=== PATIENT | female | born 1990 | race Caucasian/White ===

== ENCOUNTER → 2016-11-09 | Outpatient (CLI) | payer OTHER ==
--- NOTE | 2016-11-09 13:33 | Discharge Instructions ---
Discharge Instructions Procedure Procedure Date: Nov 09, 2016. Reason for visit: Thyroid Nodule,Pt Had Us On 10/26/16. Discharge Discharge Date: Nov 09, 2016. Discharge Diagnosis: same Instructions Activity Recommendations: No limitations Return to School/Work: no limitations Recommended Home Diet: Resume Previous Diet Provider Instructions: ACTIVITY RECOMMENDATIONS: * Rest today. * Resume regular activity in one day. MEDICATIONS: * May take Tylenol or Ibuprofen as needed for pain. DIET: * Resume previous diet. SPECIAL CARE INSTRUCTIONS: Call your doctor if: * Temperature above 101 degrees F. * Pain not relieved by pain medicine ordered. * Increased drainage or redness from incision. * Notify your doctor with any questions or concerns. Call your doctor or go to the nearest Emergency Department if you experience: * Increased chest pain or shortness of breath. FOLLOW UP VISIT: Follow-up with Referring Physician as scheduled. Allergies Uncoded Allergies: WILMAR (Allergy, Unknown, 12/06/02) Alec Ferreira Recommendations: Call your doctor if: * Temperature above 101 degrees * Pain not relieved by pain medicine ordered * There is increased drainage or redness from any incision * You have any unanswered questions or concerns. Your Doctors Instructions noted above were prepared by provider Jass Marcos. Patient Signature Section: Patient Instructions Signature Page Hortencia Garza Patient (or Guardian) Signature/Date: I have read and understand the instructions given to me by my caregivers. Caregiver/RN/Doctor Signature/Date: The above-named patient and/or guardian has received patient instructions on this date. + Original Patient Signature Page (only) stays with chart. Please make copy for patient.
--- NOTE | 2016-11-09 14:06 | DIAGNOSTIC IMAGING REPORT ---
ULTRASOUND-GUIDED FINE-NEEDLE ASPIRATION OF A RIGHT THYROID NODULE HISTORY: Right thyroid nodule. COMPARISON: None. PROCEDURE: Written informed consent was obtained. The neck was prepped and draped in the usual sterile fashion. 1% lidocaine was used for local anesthesia. A total of 2 passes using a 25-gauge needle were made through the right thyroid nodule under ultrasound guidance. Specimens were given to the on-site pathologist who determined adequate tissue for diagnosis. The patient tolerated the procedure well. There were no immediate complications. IMPRESSION: Successful ultrasound-guided fine-needle aspiration of a right thyroid nodule. Electronically signed by: Jass Marcos M.D. 11/09/2016 2:04 PM Dictated Date/Time: 11/09/2016 2:03 PM
== END | disposition home or self-care (01) ==
LOC: C.ULTR 12:38
PROVIDERS: ATTEND Family Medicine
DX: E04.1 Nontoxic single thyroid nodule (principal)

== ENCOUNTER 2021-11-16 20:38 | Observation (INO) ==
[2021-11-16 21:52] LABS: Hematocrit (blood only) 38.2 % (37-47); Hemoglobin 13.3 g/dL (12.0-16.0); Mean Corpuscular Hemoglobin 32.6 pg (25-34); Mean Corpuscular Hgb Conc 34.8 g/dL (32-36); Mean Corpuscular Volume 93.6 fL (80-100); Mean Platelet Volume 13.5 fL (7.4-10.4); Platelet Count 245 K/uL (130-400); RDW Coefficient of Variation 13.1 % (11.5-14.5); Red Blood Count 4.08 M/uL (4.2-5.4); White Blood Count 12.66 K/uL (4.8-10.8)
[2021-11-16 22:15] LABS: Appearance Urine Cloudy (Clear); Bacteria Urine Automated 2+ (Negative); Bilirubin Urine Negative (Negative); Blood Urine Negative (Negative); Color Urine Yellow; Epithelial Cell Urine Auto >30 /lpf (0-5); Glucose Urine UA Negative (Negative); Ketones Urine Trace (Negative); Leukocyte Esterase Urine 3+ (Negative); Nitrite Urine Negative (Negative); Protein Urine Negative (Negative); RBC Urine Automated 0-4 /hpf (0-4); Specific Gravity Urine 1.013 (1.000-1.030); Urobilinogen Urine Negative (Negative); WBC Urine Automated >30 /hpf (0-5); pH Urine 5.5 (4.5-7.5)
[2021-11-16 22:18] LABS: BUN Creatinine Ratio 9.9 (10-20); Creatinine Clr Calc Pharmacy 144.9 ml/min; Est GFR (African American) 131.5 ml/min; Est GFR (Non-African American) 113.5 ml/min; Potassium 3.5 mmol/L (3.5-5.1)
[2021-11-16 22:27] LABS: Cast Urine Automated 0 /lpf (0-5)
[2021-11-16] MEDS ORDERED: SODIUM CHLORIDE 0.9% 1000ML 1,000 ML IV SCH (22:30)
[2021-11-16] MEDS ORDERED: cefTRIAXone SODIUM 2,000 MG/70 ML BAG IV STA (22:30)
[2021-11-16] MEDS ORDERED: ACETAMINOPHEN 500 MG TAB PO STA (23:03)
--- NOTE | 2021-11-16 23:32 | Emergency Department Note ---
History of Present Illness General Chief complaint: Flank Pain Stated complaint: PAIN IN LEFT SIDE,36 WKS PREG,L&D WANTS SEEN IN ED Time Seen by Provider: 11/16/21 22:30 Source: patient Mode of arrival: ambulatory Limitations: no limitations History of Present Illness Provider complaint: left flank pain, Onset (ago): day(s) 2 Maximum Pain Intensity: 4 Associated symptoms: + nausea/vomiting; no fever/chills or no shortness of breath Treatments prior to arrival: other This is a 31-year-old female, G1, P0 at 36 weeks gestation who presents due to concern for left-sided flank pain. Patient states pain began over the weekend, has been intermittent in nature, and localized to the left flank, left mid back. Patient denies fevers or chills, states she has had intermittent nausea, denies change in bowel movements or change in urine. No prior history of recurrent UTI or kidney stones. Patient did take Tylenol for pain today. Patient states she did contact her PREBOARDER who instructed her that if the pain persisted she should come to the emergency department for additional evaluation. Patient states she is still feeling the baby move. No complications during the period thus far, patient does have routine care. Patient denies any abnormal vaginal discharge or bleeding. Pt seen during a time of high acuity and national emergency pandemic while wearing PPE. Home Medications Medication Instructions Recorded Confirmed Type prenat.vits,iker,iea-xibi-zzgwo PO 04/29/21 11/03/21 History Allergies Allergy/AdvReac Type Severity Reaction Status Date / Time cefaclor [From Hazel] Allergy Unknown Verified 11/03/21 09:44 CECLOR Allergy Unknown Uncoded 11/03/21 09:44 Past Med/Surg History Medical History Chlamydia History of chicken pox Surgical History S/P LASIK surgery S/P tonsillectomy S/P wisdom tooth extraction Family History Grandfather (Paternal) Myocardial infarction Mother Alcohol abuse Denies family history of Ovarian cancer Prostate cancer Breast cancer Colorectal cancer Social History Smoking Status: Never smoker Second Hand Exposure: No; Hx Alcohol Use: Yes (not while ) Alcohol type: beer, wine and hard liquor Hx Substance Use: No Preferred Language: Armenian Communication Ability: Effective Visual Impairment: No Limitations Hearing Ability: Normal 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 Beliefs That Will Affect Care: None marital status: marital status details: Shraddha Crespo (32) [phone]/ [phone] Current Living Situation: Spouse Current Living Situation Comment: lives with spouse and dog 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[employer] Feels Safe at Home: Yes Physical Activity Frequency: 3-4 Times per Week Assistive Devices: None Review of Systems A total of 10 systems reviewed and were otherwise negative All systems reviewed & are unremarkable except as noted in HPI & below Physical Exam Vital Signs Vital Signs - 24 hr 11/16/21 20:41 11/16/21 22:00 11/17/21 00:00 Temperature 36.8 C Temperature Source Temporal Artery Scan Pulse Rate 81 Pulse Rate [Apical] 74 73 Respiratory Rate 18 20 20 Respiratory Depth Normal Blood Pressure 164/99 H Blood Pressure [Right Arm] 149/100 H 127/87 Blood Pressure Mean 120 Blood Pressure Mean [Right Arm] 116 100 Pulse Oximetry 96 96 97 Oxygen Delivery Method Room Air Room Air Room Air Sepsis Recent Fever Within 48 Hours No Sepsis New/Unexplained Change in Mental Status N/A Sepsis Action Taken by Nursing No Action Required 11/17/21 01:00 Temperature Temperature Source Pulse Rate Pulse Rate [Apical] 79 Respiratory Rate 22 Respiratory Depth Blood Pressure Blood Pressure [Right Arm] Blood Pressure Mean Blood Pressure Mean [Right Arm] Pulse Oximetry 97 Oxygen Delivery Method Room Air Sepsis Recent Fever Within 48 Hours Sepsis New/Unexplained Change in Mental Status Sepsis Action Taken by Nursing GENERAL: alert, well appearing, well nourished, no distress, non-toxic EYE EXAM: normal conjunctiva, PERRL and EOM's grossly intact OROPHARYNX: no exudate, no erythema, lips, buccal mucosa, and tongue normal and mucous membranes are moist NECK: supple, no nuchal rigidity, no adenopathy, non-tender LUNGS: Clear to auscultation. Normal chest wall mechanics, no w/r/r HEART: no murmurs, S1 normal and S2 normal ABDOMEN: abdomen soft, non-tender, normo-active bowel sounds, no masses, no rebound or guarding. Noticeable gravid uterus, palpation of the fundus between the xiphoid process and the umbilicus consistent with dates. BACK: Back is symmetrical on inspection and there is no deformity, no midline tenderness, no CVA tenderness. Pain with palpation over the left flank in the lower thoracic region. SKIN: no rashes and no bruising, no petechiae UPPER EXTREMITIES: upper extremities are grossly normal. FROM, nml pulses b/l. LOWER EXTREMITIES: No pitting edema. FROM, nml pulses b/l. NEURO EXAM: Normal sensorium, cranial nerves II-XII grossly intact, normal speech, no gross weakness of arms, no gross weakness of legs. Gross sensation intact. Course Course 0005: Pt updated on results. Still having pain, worse after US. 0015: Discussed with Dr. Gilliland. 0035: Discussed with Dr. Gilliland again. She will admit the patient. Discussed treatment in the ER. Administered Medications Diphenhydramine HCl (Diphenhydramine Capsule 25 Mg Cap) 25 mg PO HS PRN PRN Reason: Nausea And Vomiting Stop: 12/17/21 02:06 Last Admin: 11/17/21 02:31 Dose: 25 mg Documented by: [id number] Lactated Ringer's (Lr) 1,000 mls @ 125 mls/hr IV .Q8H PRN; Protocol PRN Reason: L&D Protocol Stop: 12/17/21 02:06 Last Admin: 11/17/21 02:43 Dose: 125 mls/hr Documented by: [id number] Discontinued Medications Acetaminophen (Acetaminophen 500 Mg Tab) 1,000 mg PO NOW STA Stop: 11/16/21 23:04 Last Admin: 11/16/21 23:06 Dose: 1,000 mg Documented by: [id number] Calcium Carbonate (Calcium Carbonate 500 Mg Chewable Tab) 500 mg PO NOW STA Stop: 11/17/21 00:40 Last Admin: 11/17/21 00:47 Dose: 500 mg Documented by: [id number] Sodium Chloride (Nss 1000ml) 1,000 mls @ 125 mls/hr IV .Q8H EMILIO Stop: 12/16/21 22:29 Last Admin: 11/16/21 22:41 Dose: 125 mls/hr Documented by: [id number] Ceftriaxone Sodium (Rocephin) 2,000 mg in 70 mls @ 140 mls/hr IV NOW STA Stop: 11/16/21 22:59 Last Infusion: 11/16/21 23:24 Dose: 0 mls/hr Documented by: [id number] Admin: 11/16/21 22:41 Dose: 140 mls/hr Documented by: [id number] Medical Decision Making Differential Diagnosis Differential diagnosis: Etiologies such as shingles, pyelonephritis/UTI, renal colic, appendicitis, diverticulitis, mesenteric ischemia, torsion, aortic pathology, infections, inflammatory bowel disease, bowel obstruction, PUD, biliary pathology, as well as others were entertained. Medical Records Attestation: I reviewed the patient's medical records. Home Medications Current Medication List: was personally reviewed by me Laboratory Data Attestation: I reviewed the patient's lab results. Result diagrams: 11/16/21 21:04 11/16/21 21:04 Lab Results 11/16/21 11/16/21 11/16/21 Range/Units 21:04 21:04 22:00 WBC 12.66 H (4.8-10.8) K/uL RBC 4.08 L (4.2-5.4) M/uL Hgb 13.3 (12.0-16.0) g/dL Hct 38.2 (37-47) % MCV 93.6 (80-100) fL MCH 32.6 (25-34) pg MCHC 34.8 (32-36) g/dL RDW Std Deviation 45.0 (36.4-46.3) fL RDW Coeff of Ezekiel 13.1 (11.5-14.5) % Plt Count 245 (130-400) K/uL MPV 13.5 H (7.4-10.4) fL Sodium 136 (136-145) mmol/L Potassium 3.5 (3.5-5.1) mmol/L Chloride 103 (98-107) mmol/L Carbon Dioxide 24 (21-32) mmol/L Anion Gap 9 (3-11) BUN 7 (6-23) mg/dl Creatinine 0.71 (0.6-1.2) mg/dl Est Cr Clr Drug Dosing 144.9 ml/min Est GFR ( Amer) 131.5 ml/min Est GFR (Non-Af Amer) 113.5 ml/min BUN/Creatinine Ratio 9.9 L (10-20) Glucose 75 (70-99(Fasting)) mg/dl Calcium 9.0 (8.5-10.1) mg/dl Urine Color Yellow Urine Appearance Cloudy A (Clear) Urine pH 5.5 (4.5-7.5) Ur Specific [place] 1.013 (1.000-1.030) Urine Protein Negative (Negative) Urine Glucose (UA) Negative (Negative) Urine Ketones Trace H (Negative) Urine Blood Negative (Negative) Urine Nitrite Negative (Negative) Urine Bilirubin Negative (Negative) Urine Urobilinogen Negative (Negative) Ur Leukocyte Esterase 3+ H (Negative) Urine WBC (Auto) >30 H (0-5) /hpf Urine RBC (Auto) 0-4 (0-4) /hpf U Hyaline Cast (Auto) 0 (0-5) /lpf U Epithel Cells (Auto) >30 H (0-5) /lpf Urine Bacteria (Auto) 2+ H (Negative) SARS-CoV-2, RNA, NAAT (NEGATIVE) 11/17/21 Range/Units 00:45 WBC (4.8-10.8) K/uL RBC (4.2-5.4) M/uL Hgb (12.0-16.0) g/dL Hct (37-47) % MCV (80-100) fL MCH (25-34) pg MCHC (32-36) g/dL RDW Std Deviation (36.4-46.3) fL RDW Coeff of Ezekiel (11.5-14.5) % Plt Count (130-400) K/uL MPV (7.4-10.4) fL Sodium (136-145) mmol/L Potassium (3.5-5.1) mmol/L Chloride (98-107) mmol/L Carbon Dioxide (21-32) mmol/L Anion Gap (3-11) BUN (6-23) mg/dl Creatinine (0.6-1.2) mg/dl Est Cr Clr Drug Dosing ml/min Est GFR ( Amer) ml/min Est GFR (Non-Af Amer) ml/min BUN/Creatinine Ratio (10-20) Glucose (70-99(Fasting)) mg/dl Calcium (8.5-10.1) mg/dl Urine Color Urine Appearance (Clear) Urine pH (4.5-7.5) Ur Specific [place] (1.000-1.030) Urine Protein (Negative) Urine Glucose (UA) (Negative) Urine Ketones (Negative) Urine Blood (Negative) Urine Nitrite (Negative) Urine Bilirubin (Negative) Urine Urobilinogen (Negative) Ur Leukocyte Esterase (Negative) Urine WBC (Auto) (0-5) /hpf Urine RBC (Auto) (0-4) /hpf U Hyaline Cast (Auto) (0-5) /lpf U Epithel Cells (Auto) (0-5) /lpf Urine Bacteria (Auto) (Negative) SARS-CoV-2, RNA, NAAT NEGATIVE (NEGATIVE) Imaging Data Radiologist's Impression: Ultrasound renal: Moderate hydronephrosis of the right kidney. No sonographically evident nephrolithiasis in either kidney. Urinary bladder not visualized. Gravid uterus. heart rate 119 bpm. Radiologist: Juan Haile MD MDM Narrative This is a well-appearing 31-year-old female at 36 weeks gestation who presents due to abrupt onset left flank pain and recommendation of PREBOARDER. Renal ultrasound reassuring, UA suggestive of UTI, labs otherwise unremarkable with no HILARIO. Mild leukocytosis noted however this may be simply due from the and not from evolving infection. Patient was afebrile and hemodynamically stable. No evidence of bacteremia/sepsis. No evidence of nephrolithiasis on CT which I feel makes ureterolithiasis less likely. I feel right-sided hydronephrosis on the contralateral side of the pain more likely physiologic and related to the . Patient was started on IV Rocephin in addition to IV fluids and IV acetaminophen. I did discuss the case with PREBOARDER on-call due to concern for patient's current third trimester status and likely clinical pyelonephritis with persistent pain. They will observe and evaluate the patient as an inpatient as a precaution. Patient made aware of all results, and verbalized understanding. She was in agreement with the plan. heart tones reassuring. An order was placed for continuous cardiac monitoring. The monitor shows a rate of _66_ with _normal sinus__ rhythm. Impression & Plan Acute left flank pain, Pyelonephritis, Discharge Plan Visit Data Chief Complaint: Flank Pain Stated Complaint: PAIN IN LEFT SIDE,36 WKS PREG,L&D WANTS SEEN IN ED ED Provider: Azeb Alcantara Discharge Problem: Acute left flank pain, Pyelonephritis, Patient Disposition: Admitted As Inpatient Discharge Instructions Interventions: ED Discharge Assessment Last Done: 11/17/21 01:28 Discharge Problem: Qualifiers: Weeks of gestation: 36 weeks Qualified Code(s): Z3A.36 - 36 weeks gestation of
[2021-11-17] MEDS ORDERED: CALCIUM CARBONATE 500 MG CHEWABLE TAB PO STA (00:39)
[2021-11-17] MEDS ORDERED: ACETAMINOPHEN 325 MG TAB PO SCH (01:15)
--- NOTE | 2021-11-17 01:17 | History & Physical Report ---
Date of Service November 17, 2021 Assessment & Plan (1) Pyelonephritis affecting : Plan: 31 y/o G1 at 36 wga presents w/ suspected pyelo VSS FHT obtained in ER Pyelo - pt has mod to severe L flank pain, UA w/ pyuria and bacteriuria, and n/v to be suspicious for pyelo. UA not suggestive of stone and not seen on renal US. Given , rec observation for IV antibiotics. Started on IV ceftriaxone so will continue q24h dosing until beginning improvement and culture indicates sensitivities. Pt received tylenol, would prefer to use anything stronger at this point so can try to use heat packs for relief as well for now. - Will get NST upon arrival to L&D, if reactive would continue qshift as long as remains stable History of Present Illness Chief Complaint: Suspected pyelo Primary Care Provider: iL Sullivan DO 31 y/o G1 at 36 wga presented to ER earlier this evening with worsening flank pain. Reports that she called in with L flank pain last night when it began, was recommended to take tylenol and monitor as it was suspected kidney stone with instruction to present to ER if not beginning to improve or worsening. Throughout the day, pain has continued to worsen despite tylenol with associated nausea, vomiting. She denies fever or dysuria. +FM and irreg ctx, denies LOF or VB. In the ER, UA was obtained showing +LE, pyuria, bacteriuria. 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 cycles 11/2020 ascus/hpv- pap Remote hx chlamydia Allergies Allergy/AdvReac Type Severity Reaction Status Date / Time cefaclor [From Ceclor] Allergy Unknown Verified 11/03/21 09:44 CECLOR Allergy Unknown Uncoded 11/03/21 09:44 Home Medications Medication Instructions Recorded Confirmed Type prenat.vits,iker,ukm-tldv-ifddt PO 04/29/21 11/03/21 History Patient History Medical History Chlamydia History of chicken pox Surgical History S/P LASIK surgery S/P tonsillectomy S/P wisdom tooth extraction Family History Grandfather (Paternal) Myocardial infarction Mother Alcohol abuse Denies family history of Ovarian cancer Prostate cancer Breast cancer Colorectal cancer Social History Smoking Status: Never smoker Second Hand Exposure: No; Hx Alcohol Use: Yes (casual) Hx Substance Use: No Preferred Language: Kuwaiti Visual Impairment: No Limitations Hearing Ability: Normal marital status: marital status details: Shraddha Crespo (32) [phone]/ [phone] Current Living Situation: Spouse Current Living Situation Comment: lives with spouse and dog 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[employer] Feels Safe at Home: Yes Physical Activity Frequency: 3-4 Times per Week Review of Systems Neg except as noted in HPI Physical Exam Constitutional: WD/WN, vitals as above Respiratory: normal respiratory effort; no respiratory distress and no labored breathing Gastrointestinal (Abdomen): Percussion/Palpation: abdomen soft; abdomen nontender and no guarding Musculoskeletal: +L sided flank pain Genitourinary: FHT obtained by ER Results & Data ([facility]) Vital Signs (Past 12 Hours) Vital Signs Temp Pulse Pulse Resp BP BP Pulse Ox 11/17/21 01:00 79 22 97 11/17/21 00:00 73 20 127/87 97 11/16/21 22:00 74 20 149/100 H 96 11/16/21 20:41 98.2 F 81 18 164/99 H 96 Laboratory Results 11/17/21 11/16/21 11/16/21 Range/Units 00:45 22:00 21:04 WBC (4.8-10.8) K/uL RBC (4.2-5.4) M/uL Hgb (12.0-16.0) g/dL Hct (37-47) % MCV (80-100) fL MCH (25-34) pg MCHC (32-36) g/dL RDW Std Deviation (36.4-46.3) fL RDW Coeff of Ezekiel (11.5-14.5) % Plt Count (130-400) K/uL MPV (7.4-10.4) fL Sodium 136 (136-145) mmol/L Potassium 3.5 (3.5-5.1) mmol/L Chloride 103 (98-107) mmol/L Carbon Dioxide 24 (21-32) mmol/L Anion Gap 9 (3-11) BUN 7 (6-23) mg/dl Creatinine 0.71 (0.6-1.2) mg/dl Est Cr Clr Drug Dosing 144.9 ml/min Est GFR ( Amer) 131.5 ml/min Est GFR (Non-Af Amer) 113.5 ml/min BUN/Creatinine Ratio 9.9 L (10-20) Glucose 75 (70-99(Fasting)) mg/dl Calcium 9.0 (8.5-10.1) mg/dl Urine Color Yellow Urine Appearance Cloudy A (Clear) Urine pH 5.5 (4.5-7.5) Ur Specific [place] 1.013 (1.000-1.030) Urine Protein Negative (Negative) Urine Glucose (UA) Negative (Negative) Urine Ketones Trace H (Negative) Urine Blood Negative (Negative) Urine Nitrite Negative (Negative) Urine Bilirubin Negative (Negative) Urine Urobilinogen Negative (Negative) Ur Leukocyte Esterase 3+ H (Negative) Urine WBC (Auto) >30 H (0-5) /hpf Urine RBC (Auto) 0-4 (0-4) /hpf U Hyaline Cast (Auto) 0 (0-5) /lpf U Epithel Cells (Auto) >30 H (0-5) /lpf Urine Bacteria (Auto) 2+ H (Negative) SARS-CoV-2, RNA, NAAT NEGATIVE (NEGATIVE) 11/16/21 Range/Units 21:04 WBC 12.66 H (4.8-10.8) K/uL RBC 4.08 L (4.2-5.4) M/uL Hgb 13.3 (12.0-16.0) g/dL Hct 38.2 (37-47) % MCV 93.6 (80-100) fL MCH 32.6 (25-34) pg MCHC 34.8 (32-36) g/dL RDW Std Deviation 45.0 (36.4-46.3) fL RDW Coeff of Ezekiel 13.1 (11.5-14.5) % Plt Count 245 (130-400) K/uL MPV 13.5 H (7.4-10.4) fL Sodium (136-145) mmol/L Potassium (3.5-5.1) mmol/L Chloride (98-107) mmol/L Carbon Dioxide (21-32) mmol/L Anion Gap (3-11) BUN (6-23) mg/dl Creatinine (0.6-1.2) mg/dl Est Cr Clr Drug Dosing ml/min Est GFR ( Amer) ml/min Est GFR (Non-Af Amer) ml/min BUN/Creatinine Ratio (10-20) Glucose (70-99(Fasting)) mg/dl Calcium (8.5-10.1) mg/dl Urine Color Urine Appearance (Clear) Urine pH (4.5-7.5) Ur Specific [place] (1.000-1.030) Urine Protein (Negative) Urine Glucose (UA) (Negative) Urine Ketones (Negative) Urine Blood (Negative) Urine Nitrite (Negative) Urine Bilirubin (Negative) Urine Urobilinogen (Negative) Ur Leukocyte Esterase (Negative) Urine WBC (Auto) (0-5) /hpf Urine RBC (Auto) (0-4) /hpf U Hyaline Cast (Auto) (0-5) /lpf U Epithel Cells (Auto) (0-5) /lpf Urine Bacteria (Auto) (Negative) SARS-CoV-2, RNA, NAAT (NEGATIVE) Coding Level of Care Code 28076 Office/OBS Consult Lvl 3 Diagnoses Pyelonephritis affecting O23.00
[2021-11-17] MEDS ORDERED: diphenhydrAMINE Capsule 25 MG CAP PO PRN ×2 (02:07→20:43)
[2021-11-17] MEDS: LACTATED RINGER'S 1,000 ML IV PRN ×3 (02:43→16:40)
[2021-11-17] MEDS: ACETAMINOPHEN 500 MG TAB PO SCH ×2 (05:53→13:48)
[2021-11-17] MEDS: MoRPHine SULFATE 2 MG/ML CARP IV PRN ×3 (06:21→16:40)
[2021-11-17 07:07] LABS: Basophils # (auto) 0.03 K/uL (0-0.2); Basophils % (auto) 0.3 %; Eosinophils # (auto) 0.07 K/uL (0-0.5); Eosinophils % (auto) 0.7 %; Hemoglobin 11.3 g/dL (12.0-16.0); Immature Granulocytes # (auto) 0.05 K/uL (0.00-0.02); Immature Granulocytes % (auto) 0.5 %; Lymphocytes # (auto) 2.18 K/uL (1.2-3.4); Lymphocytes % (auto) 21.1 %; Mean Corpuscular Hgb Conc 34.2 g/dL (32-36); Mean Corpuscular Volume 93.5 fL (80-100); Mean Platelet Volume 12.8 fL (7.4-10.4); Monocytes # (auto) 1.23 K/uL (0.11-0.59); Monocytes % (auto) 11.9 %; Neutrophils # (auto) 6.76 K/uL (1.4-6.5); Neutrophils % (auto) 65.5 %; Platelet Count 184 K/uL (130-400); RDW Coefficient of Variation 13.3 % (11.5-14.5); RDW Standard Deviation 45.3 fL (36.4-46.3); Red Blood Count 3.53 M/uL (4.2-5.4); White Blood Count 10.32 K/uL (4.8-10.8)
--- NOTE | 2021-11-17 07:20 | Obstetrical Progress Note ---
Date of Service November 17, 2021 Assessment & Plan (1) Pyelonephritis affecting : Plan: 31 y/o G1 at 36 wga presents w/ suspected pyelo VSS NST reactive on L&D, due for AM shift NST Pyelo - continue ceftriaxone 1g q24h until beginning to improve, awaiting c ultures - NST reactive on arrival, will continue qshift Admission and Anticipated Discharge Date Admission Date: November 17, 2021 Subjective Was able to rest reasonably overnight, when she got up to move she got worsened flank pain. Denies fevers, chills, n/v, PERLA, CP, SOB. +FM; denies regular ctx, LOF, VB Physical Exam Constitutional: WD/WN, vitals as above Respiratory: normal respiratory effort; no respiratory distress and no labored breathing Gastrointestinal (Abdomen): Percussion/Palpation: abdomen soft; abdomen nontender and no guarding Musculoskeletal: Moderate L flank pain Genitourinary: NST reactive on arrival to L&D Results [facility] Data ([facility]) Vital Signs (Past 12 Hours) Vital Signs Temp Pulse Pulse Resp BP BP Pulse Ox 11/17/21 02:00 98.1 F 63 20 97 11/17/21 01:00 79 22 97 11/17/21 00:00 73 20 127/87 97 11/16/21 22:00 74 20 149/100 H 96 11/16/21 20:41 98.2 F 81 18 164/99 H 96 PG Care Time/CCT Total # of Minutes Spent Total Time Spent with Patient: Total time spent is greater than 50% in coordination of care (as documented) at patient's floor/unit and/or counseling patient: Coding Level of Care Code None Diagnoses Pyelonephritis affecting O23.00
--- NOTE | 2021-11-17 07:41 | Ultrasound Report ---
RENAL ULTRASOUND CLINICAL HISTORY: flank pain, UTI. 36 weeks . COMPARISON STUDY: None. TECHNIQUE: Sonography of the kidneys and the urinary bladder was performed. FINDINGS: Right kidney measures 13.4 x 6.2 x 4.9 cm and the left measures 11.9 x 6.7 x 5.7 cm. There is moderate right hydronephrosis. There is mild to moderate left hydronephrosis. No ureteral calculi are identified although these can be occult by sonography. Please note that a dedicated anatomi iker survey was not performed. heart rate is 119 bpm. The bladder was not visualized on this exa m. IMPRESSION: Moderate right hydronephrosis. Mild to moderate left hydronephrosis. Etiology not clear on this exam however this could be due to mass effect upon the distal ureters by the gravid uterus. ACT 112: Negative or not required by law. Electronically signed by: Mark Perez M.D. 11/17/2021 7:40 AM
[2021-11-17] MEDS ORDERED: oxyCODONE/ACETAMINOPHEN 5mg/325mg TAB PO PRN (20:39)
[2021-11-17] MEDS ORDERED: MoRPHine SULFATE 2 MG/ML CARP IV PRN (20:42)
[2021-11-17] MEDS ORDERED: ONDANSETRON INJ 2 MG/ML 2 ML VIAL IV PRN (20:45)
--- NOTE | 2021-11-17 20:45 | Obstetrical Progress Note ---
Date of Service November 17, 2021 Assessment & Plan Admission and Anticipated Discharge Date Admission Date: November 17, 2021 Subjective Recheck of patient - has had some vomiting, still feeling pain in L flank. Asking for more pain medication. Remains afebrile. I increased frequency and dose of morphine, added zofran for nausea, and offered benadryl for help sleeping. Results & Data ([facility]) Vital Signs (Past 12 Hours) Vital Signs Temp Pulse Resp BP Pulse Ox 11/17/21 16:35 36.6 C 59 L 18 142/77 H 96 11/17/21 12:20 36.8 C 73 16 133/84 95 PG Care Time/CCT Total # of Minutes Spent Total Time Spent with Patient: Total time spent is greater than 50% in coordination of care (as documented) at patient's floor/unit and/or counseling patient: Coding Level of Care Code None
[2021-11-17] MEDS ORDERED: cefTRIAXone SODIUM 2,000 MG in DEXTROSE 5% 50 ML IV SCH (22:00)
[2021-11-18] MEDS: LACTATED RINGER'S 1,000 ML IV PRN (01:10)
[2021-11-18] MEDS: ACETAMINOPHEN 500 MG TAB PO SCH ×3 (07:29→13:43)
--- NOTE | 2021-11-18 09:10 | Obstetrical Progress Note ---
Date of Service November 18, 2021 Assessment & Plan (1) Pyelonephritis affecting : Plan: Feeling much better this am. no n/v, pain improved, slept well. Plan to d/c iv abio and change to oral. Of interest her culture did not grow out anything. Plan to d/c home if she does well today with completion of an oral antibiotic course, plan just tylenol for pain management. FEtus reactive this am. Admission and Anticipated Discharge Date Admission Date: November 17, 2021 Subjective Patient got a really good nights sleep and feels much better. When I enter the room she is eating breakfast. She notes she is hungry and has no n/v. She notes she feels a bit crampy but no vb. Notes good FM. Notes her flank pain is much improved and is now a 2/10. She notes she thinks the morphine made her feel awful and declines any more of this. Had a reactive nst this am with some mics. She has had two doses of iv antibiotics. Physical Exam Constitutional: WD/WN, vitals as above Cardiovascular: Extremities: no calf tenderness and no edema Gastrointestinal (Abdomen): soft, gravid, nt Psychiatric: A+Ox3, euthymic affect Results & Data ([facility]) Vital Signs (Past 12 Hours) Vital Signs Temp Pulse Resp BP Pulse Ox 11/18/21 04:30 36.5 C 71 18 122/68 94 11/17/21 22:50 36.7 C 64 18 138/81 95 11/17/21 21:13 36.7 C 75 18 108/69 97 PG Care Time/CCT Total # of Minutes Spent Total Time Spent with Patient: Total time spent is greater than 50% in coordination of care (as documented) at patient's floor/unit and/or counseling patient: Coding Level of Care Code 70263 Subseq Hosp Care Lvl 1 Diagnoses Pyelonephritis affecting O23.00
[2021-11-18] MEDS ORDERED: cephALEXin 500 MG CAP PO SCH (13:00)
[2021-11-18 15:44] VITALS: BP 138/82; TEMP 98.1; O2SAT 97
[2021-11-18] MEDS ORDERED: CALCIUM CARBONATE 500 MG CHEWABLE TAB PO PRN (16:10)
[2021-11-18 16:59] VITALS: PULSE 63
[2021-11-18] MEDS ORDERED: NITROFURANTOIN MONOHYDRATE 100 MG CAP PO SCH (21:00)
--- NOTE | 2021-11-20 08:48 | Discharge Summary (DS) ---
DATE OF ADMISSION: 11/17/2021. DATE OF DISCHARGE: 11/18/2021. ADMIT DIAGNOSES: 1. at 36 weeks. 2. Suspected pyelo. POSTOPERATIVE DIAGNOSES: 1. at 36 weeks. 2. Suspected pyelo. PROCEDURE: IV antibiotics. HISTORY: The patient is a 31-year-old G1 at 36 weeks gestational age, who presented to the ER on with her worsening flank pain. She reports that she called in with left flank pain the night before when it began and was recommended she take Tylenol and monitor as it was a suspected kidney s tone with instruction to present to the ER if not beginning to improve or worsening. Throughout the d ay, the pain had worsened despite that and had associated nausea and vomiting. She denies fever or d ysuria. She notes good movement and irregular contractions. Denies leakage of fluid or vagina l bleeding. In the ER, UA was obtained showing positive leukocyte esterase, pyuria, bacteriuria. Ja al ultrasound was performed showing moderate right hydro, slight left hydro, but no obvious stone in either kidney. For the rest of the patient's detailed history and physical, please see her dictated history and physical. ASSESSMENT: This is a at 36 weeks, who is being admitted from the Emergency Room with susp ected pyelo. She has [id number] left flank pain and a UA with pyuria and bacteriuria, and na usea and vomiting. UA was not suggestive stone and this was not seen on renal ultrasound. HOSPITAL COURSE: Given that she is 36 weeks , it was recommended she be observed for IV hydr ation and antibiotics. She was started on IV ceftriaxone for 24-hour dosing. She did very well on t his despite having an allergy noted to WILMAR, which was categorized as unknown. She received initia lly Tylenol for pain, but did require morphine sulfate for pain; however, she did not like how she fe lt on that. She always had reactive NSTs q. shift, but did have some intermittent contractions, which she noted some cramping, but nothing more significant. Later the following morning, she was able to rest some, but when she got up to move, she had worsening flank pain. We continued 24-hour dosing un til she had had 2 doses. On hospital day #1, she still had some vomiting, flank pain and was continuing to ask for pain medica tion that is when she received the morphine because of nausea, vomiting, but did not feel well on mohinder t. Zofran was added for nausea and Benadryl was added to help in sleeping. The patient had an excel lent night of sleep between the night of 11/17/2021 and 11/18/2021 and was feeling subjectively much better in the morning. She was able to tolerate a regular diet. She noted her flank pain had decreas ed. She was able to ambulate. We initially gave her some oral Keflex to complete dosing, but this m pedro her feel very weird and unstable, so we discontinued that and changed to Macrobid. Her urine cul ture unfortunately did not grow out any significant bugs noting more than three types of organisms pr esent, all moderate and probable mixed skin arnel. Therefore, whether or not she actually had pyelon ephritis is of question. She was sent home on 11/18/2021 with a course of Macrobid to finish out. We did discuss the possibility that she was having discomfort from the moderate hydronephrosis that was noted, although this was noted greater on the right than on the left in that most of her pain was on the left. We did discuss the possibility that there was still a kidney stone and this might cause f urther problems or issues. She was given precautions on when to call back and was asked to schedule an appointment in the office on Tuesday or Tuesday of the following week. Job ID: [id number]
== END 2021-11-18 18:40 | disposition home or self-care (01) ==
LOC: 4S2 20:38 → ED 20:38 → 4S2 11-17 01:28
DX: Z3A.36 36 weeks gestation of pregnancy; Z20.822 Contact with and (suspected) exposure to COVID-19; Z88.8 Allergy status to other drugs, medicaments and biological substances; O23.03 Infections of kidney in pregnancy, third trimester

== ENCOUNTER 2021-11-29 08:29 | Inpatient (IN) ==
[2021-11-29 09:28] LABS: Basophils # (auto) 0.04 K/uL (0-0.2); Basophils % (auto) 0.4 %; Eosinophils # (auto) 0.14 K/uL (0-0.5); Eosinophils % (auto) 1.3 %; Hemoglobin 12.5 g/dL (12.0-16.0); Immature Granulocytes # (auto) 0.08 K/uL (0.00-0.02); Immature Granulocytes % (auto) 0.7 %; Lymphocytes # (auto) 1.99 K/uL (1.2-3.4); Lymphocytes % (auto) 18.5 %; Mean Corpuscular Hemoglobin 32.5 pg (25-34); Mean Corpuscular Hgb Conc 34.7 g/dL (32-36); Mean Corpuscular Volume 93.5 fL (80-100); Monocytes # (auto) 1.02 K/uL (0.11-0.59); Monocytes % (auto) 9.5 %; Neutrophils # (auto) 7.46 K/uL (1.4-6.5); Neutrophils % (auto) 69.6 %; Platelet Count 235 K/uL (130-400); RDW Coefficient of Variation 13.1 % (11.5-14.5); RDW Standard Deviation 45.1 fL (36.4-46.3); Red Blood Count 3.85 M/uL (4.2-5.4); White Blood Count 10.73 K/uL (4.8-10.8)
[2021-11-29] MEDS ORDERED: NIFEdipine 10 MG CAP PO STA ×2 (09:30)
[2021-11-29] MEDS: LACTATED RINGER'S 1,000 ML IV PRN ×3 (09:30→16:37)
[2021-11-29] MEDS ORDERED: OXYTOCIN 30 UNITS/500 ML BAG IV PRN ×2 (09:34→18:11)
[2021-11-29 09:46] LABS: Alanine Aminotransferase 41 U/L (7-52); Albumin Level 3.1 gm/dl (3.4-5.0); Alkaline Phosphatase 172 U/L (34-104); Anion Gap 10 (3-11); Aspartate Aminotransferase 26 U/L (13-39); BUN Creatinine Ratio 7.7 (10-20); Bilirubin,Total 0.6 mg/dl (0.2-1.0); Blood Urea Nitrogen 5 mg/dl (6-23); Calcium 8.4 mg/dl (8.5-10.1); Carbon Dioxide 21 mmol/L (21-32); Chloride 107 mmol/L (98-107); Est GFR (African American) 137.1 ml/min; Est GFR (Non-African American) 118.3 ml/min; Globulin 3.2 gm/dl (2.5-4.0); Glucose 82 mg/dl (70-99(Fasting)); Potassium 3.3 mmol/L (3.5-5.1); Sodium 138 mmol/L (136-145); Total Protein 6.3 gm/dl (6.0-8.3)
--- NOTE | 2021-11-29 09:46 | History & Physical Report ---
Date of Service November 29, 2021 Assessment & Plan (1) Encounter for supervision of normal intrauterine in primigravida, antepartum: Plan: Labor - Admit to L&D, EFM/toco, labs, IV access. OK for epidural when she desires. (2) Elevated blood pressure complicating , antepartum: Plan: Preeclampsia labs ordered. Start with PO Nifedipine 20mg stat, recheck in 20 min. Discussed with patient that if no improvement in BP, magnesium may be indicated. Admission and Anticipated Discharge Date Admission Date: November 29, 2021 History of Present Illness Chief Complaint: ROM Primary Care Provider: Li Sullivan DO 31yo @ 37 [birth year], presents to L&D after rupture of membranes for clear fluid this morning at home. She was directed to come to L&D. She is also mingo. + movement. No vaginal bleeding. Reports headache in the mornings for the past few days. No additional symptoms. H/o COVID+ in September, states this was a PCR test - she is trying to get these results at the moment. Allergies Allergy/AdvReac Type Severity Reaction Status Date / Time cefaclor [From Ceclor] Allergy Unknown Verified 11/24/21 08:30 CECLOR Allergy Unknown Uncoded 11/03/21 09:44 Home Medications Medication Instructions Recorded Confirmed Type prenat.vits,iker,alg-imez-tzjez PO 04/29/21 11/24/21 History nitrofurantoin 100 mg PO BID #14 cap 11/18/21 11/24/21 Rx monohydrate/macrocrystals 100 mg capsule (Macrobid) acetaminophen [Tylenol] PO 11/24/21 11/24/21 History Patient History Medical History Chlamydia History of chicken pox Surgical History S/P LASIK surgery S/P tonsillectomy S/P wisdom tooth extraction Family History Grandfather (Paternal) Myocardial infarction Mother Alcohol abuse Denies family history of Ovarian cancer Prostate cancer Breast cancer Colorectal cancer Social History Smoking Status: Never smoker Second Hand Exposure: No; Hx Alcohol Use: Yes (not while ) Alcohol type: beer, wine and hard liquor Hx Substance Use: No Preferred Language: Macanese Communication Ability: Effective Visual Impairment: No Limitations Hearing Ability: Normal Application Tester Required: No Beliefs That Will Affect Care: None marital status: marital status details: Shraddha Crespo (32) [phone]/ [phone] Current Living Situation: Spouse Current Living Situation Comment: lives with spouse and dog 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 Nitrizine + grossly ruptured. Limited bedside US - cephalic. Constitutional: WD/WN, vitals as above Respiratory: normal respiratory effort, lungs clear to auscultation no respiratory distress Cardiovascular: Rate/Rhythm: regular rate and regular rhythm Gastrointestinal (Abdomen): Inspection/Auscultation: abdomen normal to inspection Percussion/Palpation: abdomen soft; abdomen nontender Gravid. No s/s chorio or abruption. Skin: no rashes, warm and dry Psychiatric: A+Ox3, euthymic affect Results & Data ([facility]) Vital Signs (Past 12 Hours) Vital Signs Pulse BP 11/29/21 09:30 84 186/114 H 11/29/21 09:14 80 175/114 H 11/29/21 09:11 86 174/110 H 11/29/21 09:10 85 161/116 H 11/29/21 09:05 80 173/117 H 11/29/21 08:52 78 194/123 H Monitoring External Monitor FHT Cat 1 Tocodynamometer Q2 min Coding Level of Care Code None Diagnoses Encounter for supervision of normal intrauterine in primigravida, antepartum Z34.00 Elevated blood pressure complicating , antepartum O16.9
[2021-11-29] MEDS ORDERED: PENICILLIN G POTASSIUM 6 MU in DEXTROSE 5% 250 ML IV ONE (10:00)
[2021-11-29 10:17] LABS: Creatinine Urine Random 36.1 mg/dl; Total Protein Urine Random 72.7 mg/dl (0-11.9)
[2021-11-29] MEDS ORDERED: MAG SULFATE 4GM BOLUS FROM BAG IV ONE (10:22)
[2021-11-29] MEDS ORDERED: SODIUM CHLORIDE 0.9% INJ 10 ML VIAL ONE ×2 (10:28→19:49)
[2021-11-29] MEDS ORDERED: BUPIVACAINE 0.25% 30 ML VIAL ONE ×2 (10:28→19:49)
[2021-11-29] MEDS ORDERED: ePHEDrine sulfate 50 MG/ML AMP ONE ×2 (10:28→19:49)
[2021-11-29] MEDS ORDERED: fentaNYL citrate 100 MCG/2 ML VIAL ONE ×2 (10:29→19:49)
[2021-11-29] MEDS ORDERED: fentaNYL 2MCG/ML ROPIVACAINE 1.25MG/ML 100 ML BAG EPI ONE ×2 (10:30→19:49)
[2021-11-29] MEDS ORDERED: ATROPINE SULFATE 0.1 MG/ML 10ML SYR IV PRN (10:54)
[2021-11-29] MEDS ORDERED: NALOXONE HCL 0.4 MG/1 ML VIAL/CARP IV PRN ×2 (10:54→22:20)
[2021-11-29] MEDS ORDERED: ePHEDrine sulfate 50 MG/ML AMP IV PRN ×3 (10:54→22:20)
[2021-11-29] MEDS ORDERED: diphenhydrAMINE 50 MG/ML VIAL IV PRN ×2 (10:54→22:20)
[2021-11-29] MEDS ORDERED: NALBUPHINE HCL INJ 10 MG/ML AMP IV PRN ×2 (10:54→22:20)
[2021-11-29] MEDS ORDERED: NALOXONE HCL 1 MG in SODIUM CHLORIDE 0.9% 1000ML 1,000 ML IV PRN ×2 (10:54→22:20)
--- NOTE | 2021-11-29 10:54 | Anesthesiology Consultation ---
Date of Service November 29, 2021 Assessment & Plan (1) Encounter for pre-operative examination: Chart Review Chart Review: Acceptable Risk for Surgery and Patient NOT seen in Pre Admission Testing Consults Requested none History Allergies Allergy/AdvReac Type Severity Reaction Status Date / Time cefaclor [From Ceclor] Allergy Unknown Verified 11/24/21 08:30 CECLOR Allergy Unknown Uncoded 11/03/21 09:44 Medications Home Medications Medication Instructions Recorded Confirmed Last Taken prenat.vits,iker,lkp-zjuq-nuocj PO 04/29/21 11/24/21 Unknown nitrofurantoin 100 mg PO BID #14 cap 11/18/21 11/24/21 Unknown monohydrate/macrocrystals 100 mg capsule (Macrobid) acetaminophen [Tylenol] PO 11/24/21 11/24/21 Unknown Active Medications Generic Name Dose Route Start Last Admin Trade Name Freq PRN Reason Stop Dose Admin Lactated Ringer's 1,000 mls @ 125 mls/hr 11/29/21 09:34 11/29/21 10:06 Lr IV 12/01/21 09:33 0 mls/hr .Q8H PRN Infusion L&D Protocol Protocol Penicillin G Potassium 6 mu/ 262 mls @ 262 mls/hr 11/29/21 10:00 11/29/21 10:04 Dextrose IV 11/29/21 10:59 262 mls/hr ONE ONE Administration Past Medical History Medical History Chlamydia History of chicken pox Past Family History Family History Grandfather (Paternal) Myocardial infarction Mother Alcohol abuse Denies family history of Ovarian cancer Prostate cancer Breast cancer Colorectal cancer Past Surgical History Surgical History S/P LASIK surgery S/P tonsillectomy S/P wisdom tooth extraction Social History Smoking Status: Never smoker Hx Alcohol Use: Yes (not while ) Alcohol type: beer, wine and hard liquor alcohol intake frequency: holidays/special occasions only Hx Substance Use: No substance use type: does not use Physical Exam Vital Signs Last Vital Signs Pulse 107 H 11/29/21 10:42 BP 147/101 H 11/29/21 10:42 Testing Laboratory Results 11/29/21 09:18 11/29/21 09:18
[2021-11-29] MEDS: ACETAMINOPHEN 500 MG TAB PO PRN (10:55)
[2021-11-29] MEDS: fentaNYL 2MCG/ML ROPIVACAINE 1.25MG/ML 100 ML BAG EPI PRN ×2 (11:17→17:09)
[2021-11-29 12:06] LABS: Creatinine Urine Random 46.5 mg/dl; Protein Creatinine Ratio Urine 0.8 (0-0.2)
[2021-11-29] MEDS: PENICILLIN G POTASSIUM 3 MU in DEXTROSE 5% 100 ML IV PRN ×3 (13:45→22:04)
--- NOTE | 2021-11-29 14:17 | Labor Progress Brief Note ---
Date of Service November 29, 2021 Subjective Comfortable with re-dose of epidural. FHT Cat 1 [place] Q 2 Repeat urine pro/creat ratio is 0.8 - suspect initial sample was contaminated by amniotic fluid. Remaining labs wnl. BP improved significantly with the single dose of nifedipine on arrival and headache has improved also with one dose tylenol. Discussed with pt to notify us if headache worsens. Will continue to monitor BPs closely. Discussed that will hold mag for now, if increasing BP or if headache returns, may need to start it. Assessment & Plan Admission and Anticipated Discharge Date Admission Date: November 29, 2021 Results & Data ([facility]) Vital Signs (Past 12 Hours) Vital Signs Temp Pulse Resp BP Pulse Ox 11/29/21 14:11 78 158/91 H 11/29/21 14:08 82 96 11/29/21 14:03 87 97 11/29/21 13:58 79 96 11/29/21 13:53 91 H 96 11/29/21 13:48 82 96 11/29/21 13:43 81 96 11/29/21 13:39 84 134/82 11/29/21 13:38 94 H 96 11/29/21 13:35 93 H 147/79 H 11/29/21 13:33 90 97 11/29/21 13:29 86 140/83 94 11/29/21 13:28 74 95 11/29/21 13:26 77 154/93 H 11/29/21 13:24 77 167/93 H 11/29/21 13:23 75 98 11/29/21 13:20 100 H 148/106 H 11/29/21 13:18 88 96 11/29/21 13:16 85 94 11/29/21 13:14 80 158/99 H 11/29/21 13:13 84 97 11/29/21 13:11 97 H 158/98 H 11/29/21 13:08 100 H 98 11/29/21 13:06 92 H 166/103 H 11/29/21 13:03 83 96 11/29/21 13:00 88 171/93 H 11/29/21 12:58 36.6 C 83 98 11/29/21 12:55 93 H 167/91 H 11/29/21 12:54 20 11/29/21 12:53 92 H 97 11/29/21 12:50 97 H 155/99 H 11/29/21 12:48 91 H 97 11/29/21 12:44 77 160/92 H 11/29/21 12:43 87 97 11/29/21 12:41 89 165/98 H 11/29/21 12:38 74 96 11/29/21 12:34 75 156/95 H 11/29/21 12:33 85 98 11/29/21 12:30 73 152/90 H 11/29/21 12:28 77 95 11/29/21 12:26 78 154/100 H 11/29/21 12:23 75 95 11/29/21 12:20 78 155/90 H 11/29/21 12:18 86 97 11/29/21 12:15 83 155/91 H 11/29/21 12:13 86 98 11/29/21 12:09 85 154/92 H 11/29/21 12:08 84 98 11/29/21 12:04 92 H 155/90 H 11/29/21 12:03 84 97 11/29/21 12:00 92 H 157/86 H 11/29/21 11:58 99 H 97 11/29/21 11:54 85 142/91 H 11/29/21 11:53 81 95 11/29/21 11:50 92 H 134/89 11/29/21 11:48 83 96 11/29/21 11:43 91 H 164/86 H 95 11/29/21 11:39 85 138/88 11/29/21 11:38 87 98 11/29/21 11:36 101 H 145/91 H 11/29/21 11:33 81 142/84 H 96 11/29/21 11:30 125 H 149/82 H 11/29/21 11:28 96 H 98 11/29/21 11:27 109 H 151/87 H 11/29/21 11:24 107 H 135/77 11/29/21 11:23 93 H 96 11/29/21 11:21 106 H 147/77 H 11/29/21 11:18 107 H 145/77 H 97 11/29/21 11:15 114 H 142/73 H 11/29/21 11:13 100 H 97 11/29/21 11:12 101 H 149/78 H 11/29/21 11:09 81 130/72 11/29/21 11:08 91 H 96 11/29/21 11:03 133 H 98 11/29/21 11:02 133 H 155/97 H 11/29/21 10:58 116 H 98 11/29/21 10:53 129 H 99 11/29/21 10:52 114 H 154/99 H 11/29/21 10:42 107 H 147/101 H 11/29/21 10:32 125 H 150/102 H 11/29/21 10:23 118 H 143/93 H 11/29/21 10:21 125 H 150/102 H 11/29/21 10:17 129 H 134/86 11/29/21 10:07 134 H 142/93 H 11/29/21 09:46 84 186/115 H 11/29/21 09:30 84 186/114 H 11/29/21 09:14 80 175/114 H 11/29/21 09:11 86 174/110 H 11/29/21 09:10 85 161/116 H 11/29/21 09:05 80 173/117 H 11/29/21 08:52 37.0 C 78 194/123 H Coding Level of Care Code None
--- NOTE | 2021-11-29 15:28 | Labor Progress Brief Note ---
Date of Service November 29, 2021 Subjective Very painful with ctx. FHT Cat 1 [place] Q 2 SVE 6/100/-1 Will ask anesthesia for redose. BPs seem to increase as patient complaints of worsening pain, then improve with pain relief. Assessment & Plan Admission and Anticipated Discharge Date Admission Date: November 29, 2021 Results & Data ([facility]) Vital Signs (Past 12 Hours) Vital Signs Temp Pulse Resp BP Pulse Ox 11/29/21 15:23 91 H 96 11/29/21 15:21 96 H 92 11/29/21 15:18 108 H 98 11/29/21 15:13 93 H 98 11/29/21 15:11 83 170/105 H 11/29/21 15:08 81 97 11/29/21 15:03 94 H 96 11/29/21 14:58 88 97 11/29/21 14:53 110 H 98 11/29/21 14:48 113 H 97 11/29/21 14:46 104 H 84 L 11/29/21 14:43 84 97 11/29/21 14:40 37.0 C 85 18 160/94 H 11/29/21 14:38 77 95 11/29/21 14:33 77 95 11/29/21 14:29 81 94 11/29/21 14:28 72 95 11/29/21 14:23 82 95 11/29/21 14:18 86 96 11/29/21 14:13 82 97 11/29/21 14:11 78 158/91 H 11/29/21 14:08 82 96 11/29/21 14:03 87 97 11/29/21 14:00 18 11/29/21 13:58 79 96 11/29/21 13:53 91 H 96 11/29/21 13:48 82 96 11/29/21 13:43 81 96 11/29/21 13:39 84 134/82 11/29/21 13:38 94 H 96 11/29/21 13:35 93 H 147/79 H 11/29/21 13:33 90 97 11/29/21 13:30 18 11/29/21 13:29 86 140/83 94 11/29/21 13:28 74 95 11/29/21 13:26 77 154/93 H 11/29/21 13:24 77 167/93 H 11/29/21 13:23 75 98 11/29/21 13:20 100 H 148/106 H 11/29/21 13:18 88 96 11/29/21 13:16 85 94 11/29/21 13:14 80 158/99 H 11/29/21 13:13 84 97 11/29/21 13:11 97 H 158/98 H 11/29/21 13:08 100 H 98 11/29/21 13:06 92 H 166/103 H 11/29/21 13:03 83 96 11/29/21 13:00 88 18 171/93 H 11/29/21 12:58 36.6 C 83 98 11/29/21 12:55 93 H 167/91 H 11/29/21 12:54 20 11/29/21 12:53 92 H 97 11/29/21 12:50 97 H 155/99 H 11/29/21 12:48 91 H 97 11/29/21 12:44 77 160/92 H 11/29/21 12:43 87 97 11/29/21 12:41 89 165/98 H 11/29/21 12:38 74 96 11/29/21 12:34 75 156/95 H 11/29/21 12:33 85 98 11/29/21 12:30 73 18 152/90 H 11/29/21 12:28 77 95 11/29/21 12:26 78 154/100 H 11/29/21 12:23 75 95 11/29/21 12:20 78 155/90 H 11/29/21 12:18 86 97 11/29/21 12:15 83 155/91 H 11/29/21 12:13 86 98 11/29/21 12:09 85 154/92 H 11/29/21 12:08 84 98 11/29/21 12:04 92 H 155/90 H 11/29/21 12:03 84 97 11/29/21 12:00 92 H 157/86 H 11/29/21 11:58 99 H 97 11/29/21 11:54 85 142/91 H 11/29/21 11:53 81 95 11/29/21 11:50 92 H 134/89 11/29/21 11:48 83 96 11/29/21 11:43 91 H 164/86 H 95 11/29/21 11:39 85 138/88 11/29/21 11:38 87 98 11/29/21 11:36 101 H 145/91 H 11/29/21 11:33 81 142/84 H 96 11/29/21 11:30 125 H 149/82 H 11/29/21 11:28 96 H 98 11/29/21 11:27 109 H 151/87 H 11/29/21 11:24 107 H 135/77 11/29/21 11:23 93 H 96 11/29/21 11:21 106 H 147/77 H 11/29/21 11:18 107 H 145/77 H 97 11/29/21 11:15 114 H 142/73 H 11/29/21 11:13 100 H 97 11/29/21 11:12 101 H 149/78 H 11/29/21 11:09 81 130/72 11/29/21 11:08 91 H 96 11/29/21 11:03 133 H 98 11/29/21 11:02 133 H 155/97 H 11/29/21 11:00 18 11/29/21 10:58 116 H 98 11/29/21 10:53 129 H 99 11/29/21 10:52 114 H 154/99 H 11/29/21 10:42 107 H 147/101 H 11/29/21 10:32 125 H 150/102 H 11/29/21 10:23 118 H 143/93 H 11/29/21 10:21 125 H 150/102 H 11/29/21 10:17 129 H 134/86 11/29/21 10:07 134 H 142/93 H 11/29/21 09:46 84 186/115 H 11/29/21 09:30 84 186/114 H 11/29/21 09:14 80 175/114 H 11/29/21 09:11 86 174/110 H 11/29/21 09:10 85 161/116 H 11/29/21 09:05 80 173/117 H 11/29/21 08:52 37.0 C 78 194/123 H Coding Level of Care Code None
[2021-11-29] MEDS: LABETALOL HCL IV 5 MG/ML 20ML IV PRN ×2 (16:06→22:44)
[2021-11-29] MEDS: MAGNESIUM SULFATE / WTR 40 GM/1,000 ML BAG IV SCH (16:13)
[2021-11-29 16:38] LABS: Hemoglobin 12.4 g/dL (12.0-16.0); Mean Corpuscular Hemoglobin 32.1 pg (25-34); Mean Corpuscular Hgb Conc 34.4 g/dL (32-36); Mean Corpuscular Volume 93.3 fL (80-100); Mean Platelet Volume 12.7 fL (7.4-10.4); Platelet Count 266 K/uL (130-400); RDW Coefficient of Variation 13.3 % (11.5-14.5); RDW Standard Deviation 45.7 fL (36.4-46.3); Red Blood Count 3.86 M/uL (4.2-5.4); White Blood Count 17.37 K/uL (4.8-10.8)
[2021-11-29 16:55] LABS: Albumin Globulin Ratio 0.9 (0.9-2); Albumin Level 3.1 gm/dl (3.4-5.0); Bilirubin,Total 0.7 mg/dl (0.2-1.0); Calcium 8.2 mg/dl (8.5-10.1); Creatinine Clr Calc Pharmacy 155.7 ml/min; Est GFR (African American) 135.8 ml/min; Est GFR (Non-African American) 117.1 ml/min; Globulin 3.4 gm/dl (2.5-4.0); Potassium 3.1 mmol/L (3.5-5.1); Total Protein 6.5 gm/dl (6.0-8.3)
--- NOTE | 2021-11-29 18:19 | Labor Progress Brief Note ---
Date of Service November 29, 2021 Subjective Continues to become very uncomfortable about 2h after epidural redose. FHT Cat 1 [place] irreg Cervix 6/100/-1 Ctx have spaced out after starting mag and cervix is unchanged, will add pitocin. Assessment & Plan Admission and Anticipated Discharge Date Admission Date: November 29, 2021 Results & Data ([facility]) Vital Signs (Past 12 Hours) Vital Signs Temp Pulse Resp BP Pulse Ox 11/29/21 18:15 99 H 159/93 H 11/29/21 18:13 103 H 97 11/29/21 18:08 89 95 11/29/21 18:03 103 H 95 11/29/21 17:58 89 95 11/29/21 17:53 85 95 11/29/21 17:48 89 96 11/29/21 17:44 86 156/86 H 11/29/21 17:43 88 97 11/29/21 17:38 83 95 11/29/21 17:33 96 H 95 11/29/21 17:30 18 11/29/21 17:28 87 93 11/29/21 17:23 85 96 11/29/21 17:18 88 96 11/29/21 17:14 77 152/94 H 11/29/21 17:13 86 94 11/29/21 17:11 85 162/94 H 11/29/21 17:08 83 93 11/29/21 17:06 82 170/96 H 11/29/21 17:03 82 94 11/29/21 17:00 78 18 151/89 H 11/29/21 16:58 86 95 11/29/21 16:55 78 149/86 H 11/29/21 16:53 82 94 11/29/21 16:50 79 156/92 H 11/29/21 16:48 76 93 11/29/21 16:45 80 143/91 H 11/29/21 16:43 82 95 11/29/21 16:40 79 141/91 H 11/29/21 16:38 79 95 11/29/21 16:35 86 149/93 H 11/29/21 16:33 81 95 11/29/21 16:31 76 144/88 H 11/29/21 16:28 82 93 11/29/21 16:26 78 93 11/29/21 16:25 86 140/88 11/29/21 16:23 80 95 11/29/21 16:22 78 134/81 11/29/21 16:20 83 93 11/29/21 16:18 87 97 11/29/21 16:17 93 H 136/91 11/29/21 16:15 85 93 11/29/21 16:13 94 H 96 11/29/21 16:11 91 H 141/92 H 11/29/21 16:08 106 H 97 11/29/21 16:03 120 H 97 11/29/21 16:00 20 11/29/21 15:58 128 H 97 11/29/21 15:54 113 H 166/99 H 11/29/21 15:53 108 H 97 11/29/21 15:51 126 H 186/93 H 11/29/21 15:48 118 H 97 11/29/21 15:47 92 H 94 11/29/21 15:43 88 96 11/29/21 15:40 97 H 182/113 H 11/29/21 15:38 109 H 98 11/29/21 15:33 128 H 98 11/29/21 15:30 20 11/29/21 15:28 83 95 11/29/21 15:23 91 H 96 11/29/21 15:21 96 H 92 11/29/21 15:18 108 H 98 11/29/21 15:13 93 H 98 11/29/21 15:11 83 170/105 H 11/29/21 15:08 81 97 11/29/21 15:03 94 H 96 11/29/21 14:58 88 97 11/29/21 14:53 110 H 98 11/29/21 14:48 113 H 97 11/29/21 14:46 104 H 84 L 11/29/21 14:43 84 97 11/29/21 14:40 37.0 C 85 18 160/94 H 11/29/21 14:38 77 95 11/29/21 14:33 77 95 11/29/21 14:29 81 94 11/29/21 14:28 72 95 11/29/21 14:23 82 95 11/29/21 14:18 86 96 11/29/21 14:13 82 97 11/29/21 14:11 78 158/91 H 11/29/21 14:08 82 96 11/29/21 14:03 87 97 11/29/21 14:00 18 11/29/21 13:58 79 96 11/29/21 13:53 91 H 96 11/29/21 13:48 82 96 11/29/21 13:43 81 96 11/29/21 13:39 84 134/82 11/29/21 13:38 94 H 96 11/29/21 13:35 93 H 147/79 H 11/29/21 13:33 90 97 11/29/21 13:30 18 11/29/21 13:29 86 140/83 94 11/29/21 13:28 74 95 11/29/21 13:26 77 154/93 H 11/29/21 13:24 77 167/93 H 11/29/21 13:23 75 98 11/29/21 13:20 100 H 148/106 H 11/29/21 13:18 88 96 11/29/21 13:16 85 94 11/29/21 13:14 80 158/99 H 11/29/21 13:13 84 97 11/29/21 13:11 97 H 158/98 H 11/29/21 13:08 100 H 98 11/29/21 13:06 92 H 166/103 H 11/29/21 13:03 83 96 11/29/21 13:00 88 18 171/93 H 11/29/21 12:58 36.6 C 83 98 11/29/21 12:55 93 H 167/91 H 11/29/21 12:54 20 11/29/21 12:53 92 H 97 11/29/21 12:50 97 H 155/99 H 11/29/21 12:48 91 H 97 11/29/21 12:44 77 160/92 H 11/29/21 12:43 87 97 11/29/21 12:41 89 165/98 H 11/29/21 12:38 74 96 11/29/21 12:34 75 156/95 H 11/29/21 12:33 85 98 11/29/21 12:30 73 18 152/90 H 11/29/21 12:28 77 95 11/29/21 12:26 78 154/100 H 11/29/21 12:23 75 95 11/29/21 12:20 78 155/90 H 11/29/21 12:18 86 97 11/29/21 12:15 83 155/91 H 11/29/21 12:13 86 98 11/29/21 12:09 85 154/92 H 11/29/21 12:08 84 98 11/29/21 12:04 92 H 155/90 H 11/29/21 12:03 84 97 11/29/21 12:00 92 H 157/86 H 11/29/21 11:58 99 H 97 11/29/21 11:54 85 142/91 H 11/29/21 11:53 81 95 11/29/21 11:50 92 H 134/89 11/29/21 11:48 83 96 11/29/21 11:43 91 H 164/86 H 95 11/29/21 11:39 85 138/88 11/29/21 11:38 87 98 11/29/21 11:36 101 H 145/91 H 11/29/21 11:33 81 142/84 H 96 11/29/21 11:30 125 H 149/82 H 11/29/21 11:28 96 H 98 11/29/21 11:27 109 H 151/87 H 11/29/21 11:24 107 H 135/77 11/29/21 11:23 93 H 96 11/29/21 11:21 106 H 147/77 H 11/29/21 11:18 107 H 145/77 H 97 11/29/21 11:15 114 H 142/73 H 11/29/21 11:13 100 H 97 11/29/21 11:12 101 H 149/78 H 11/29/21 11:09 81 130/72 11/29/21 11:08 91 H 96 11/29/21 11:03 133 H 98 11/29/21 11:02 133 H 155/97 H 11/29/21 11:00 18 11/29/21 10:58 116 H 98 11/29/21 10:53 129 H 99 11/29/21 10:52 114 H 154/99 H 11/29/21 10:42 107 H 147/101 H 11/29/21 10:32 125 H 150/102 H 11/29/21 10:23 118 H 143/93 H 11/29/21 10:21 125 H 150/102 H 11/29/21 10:17 129 H 134/86 11/29/21 10:07 134 H 142/93 H 11/29/21 09:46 84 186/115 H 11/29/21 09:30 84 186/114 H 11/29/21 09:14 80 175/114 H 11/29/21 09:11 86 174/110 H 11/29/21 09:10 85 161/116 H 11/29/21 09:05 80 173/117 H 11/29/21 08:52 37.0 C 78 194/123 H Coding Level of Care Code None
--- NOTE | 2021-11-29 20:05 | Labor Progress Brief Note ---
Date of Service November 29, 2021 Subjective Very painful. Anesthesia at bedside to replace epidural. FHT Cat 1 [place] Q 2-3 SVE 7/100/0 Assessment & Plan Admission and Anticipated Discharge Date Admission Date: November 29, 2021 Results & Data ([facility]) Vital Signs (Past 12 Hours) Vital Signs Temp Pulse Resp BP Pulse Ox 11/29/21 19:37 125 H 156/94 H 11/29/21 19:34 122 H 161/100 H 11/29/21 19:33 121 H 97 11/29/21 19:31 106 H 155/97 H 11/29/21 19:28 114 H 163/101 H 97 11/29/21 19:25 102 H 158/94 H 11/29/21 19:23 103 H 97 11/29/21 19:22 105 H 154/98 H 11/29/21 19:19 109 H 164/99 H 11/29/21 19:18 103 H 96 11/29/21 19:16 97 H 157/88 H 11/29/21 19:13 99 H 146/86 H 96 11/29/21 19:10 97 H 151/84 H 11/29/21 19:08 100 H 96 11/29/21 19:07 104 H 158/88 H 11/29/21 19:04 105 H 157/89 H 11/29/21 19:03 108 H 96 11/29/21 19:00 36.9 C 11/29/21 18:58 103 H 169/96 H 96 11/29/21 18:55 172/93 H 11/29/21 18:53 100 H 95 11/29/21 18:52 99 H 145/82 H 11/29/21 18:49 97 H 161/89 H 11/29/21 18:48 98 H 96 11/29/21 18:46 96 H 156/85 H 11/29/21 18:43 92 H 146/82 H 95 11/29/21 18:40 98 H 152/91 H 11/29/21 18:38 93 H 93 11/29/21 18:37 93 H 150/78 H 11/29/21 18:34 96 H 152/81 H 11/29/21 18:33 94 H 94 11/29/21 18:31 95 H 149/78 H 02/06/22 18:30 18 11/29/21 18:28 104 H 146/69 H 96 11/29/21 18:25 98 H 145/75 H 11/29/21 18:23 99 H 97 11/29/21 18:22 93 H 146/78 H 11/29/21 18:19 102 H 148/81 H 11/29/21 18:18 104 H 96 11/29/21 18:15 96 H 152/94 H 11/29/21 18:13 103 H 97 11/29/21 18:08 89 95 11/29/21 18:03 103 H 95 11/29/21 18:00 18 11/29/21 17:58 89 95 11/29/21 17:53 85 95 11/29/21 17:48 89 96 11/29/21 17:44 86 156/86 H 11/29/21 17:43 88 97 11/29/21 17:38 83 95 11/29/21 17:33 96 H 95 11/29/21 17:30 18 11/29/21 17:28 87 93 11/29/21 17:23 85 96 11/29/21 17:18 88 96 11/29/21 17:14 77 152/94 H 11/29/21 17:13 86 94 11/29/21 17:11 85 162/94 H 11/29/21 17:08 83 93 11/29/21 17:06 82 170/96 H 11/29/21 17:03 82 94 11/29/21 17:00 78 18 151/89 H 11/29/21 16:58 86 95 11/29/21 16:55 78 149/86 H 11/29/21 16:53 82 94 11/29/21 16:50 79 156/92 H 11/29/21 16:48 76 93 11/29/21 16:45 80 143/91 H 11/29/21 16:43 82 95 11/29/21 16:40 79 141/91 H 11/29/21 16:38 79 95 11/29/21 16:35 86 149/93 H 11/29/21 16:33 81 95 11/29/21 16:31 76 144/88 H 11/29/21 16:28 82 93 11/29/21 16:26 78 93 11/29/21 16:25 86 140/88 11/29/21 16:23 80 95 11/29/21 16:22 78 134/81 11/29/21 16:20 83 93 11/29/21 16:18 87 97 11/29/21 16:17 93 H 136/91 11/29/21 16:15 85 93 11/29/21 16:13 94 H 96 11/29/21 16:11 91 H 141/92 H 11/29/21 16:08 106 H 97 11/29/21 16:03 120 H 97 11/29/21 16:00 20 11/29/21 15:58 128 H 97 11/29/21 15:54 113 H 166/99 H 11/29/21 15:53 108 H 97 11/29/21 15:51 126 H 186/93 H 11/29/21 15:48 118 H 97 11/29/21 15:47 92 H 94 11/29/21 15:43 88 96 11/29/21 15:40 97 H 182/113 H 11/29/21 15:38 109 H 98 11/29/21 15:33 128 H 98 11/29/21 15:30 20 11/29/21 15:28 83 95 11/29/21 15:23 91 H 96 11/29/21 15:21 96 H 92 11/29/21 15:18 108 H 98 11/29/21 15:13 93 H 98 11/29/21 15:11 83 170/105 H 11/29/21 15:08 81 97 11/29/21 15:03 94 H 96 11/29/21 14:58 88 97 11/29/21 14:53 110 H 98 11/29/21 14:48 113 H 97 11/29/21 14:46 104 H 84 L 11/29/21 14:43 84 97 11/29/21 14:40 37.0 C 85 18 160/94 H 11/29/21 14:38 77 95 11/29/21 14:33 77 95 11/29/21 14:29 81 94 11/29/21 14:28 72 95 11/29/21 14:23 82 95 11/29/21 14:18 86 96 11/29/21 14:13 82 97 11/29/21 14:11 78 158/91 H 11/29/21 14:08 82 96 11/29/21 14:03 87 97 11/29/21 14:00 18 11/29/21 13:58 79 96 11/29/21 13:53 91 H 96 11/29/21 13:48 82 96 11/29/21 13:43 81 96 11/29/21 13:39 84 134/82 11/29/21 13:38 94 H 96 11/29/21 13:35 93 H 147/79 H 11/29/21 13:33 90 97 11/29/21 13:30 18 11/29/21 13:29 86 140/83 94 11/29/21 13:28 74 95 11/29/21 13:26 77 154/93 H 11/29/21 13:24 77 167/93 H 11/29/21 13:23 75 98 11/29/21 13:20 100 H 148/106 H 11/29/21 13:18 88 96 11/29/21 13:16 85 94 11/29/21 13:14 80 158/99 H 11/29/21 13:13 84 97 11/29/21 13:11 97 H 158/98 H 11/29/21 13:08 100 H 98 11/29/21 13:06 92 H 166/103 H 11/29/21 13:03 83 96 11/29/21 13:00 88 18 171/93 H 11/29/21 12:58 36.6 C 83 98 11/29/21 12:55 93 H 167/91 H 11/29/21 12:54 20 11/29/21 12:53 92 H 97 11/29/21 12:50 97 H 155/99 H 11/29/21 12:48 91 H 97 11/29/21 12:44 77 160/92 H 11/29/21 12:43 87 97 11/29/21 12:41 89 165/98 H 11/29/21 12:38 74 96 11/29/21 12:34 75 156/95 H 11/29/21 12:33 85 98 11/29/21 12:30 73 18 152/90 H 11/29/21 12:28 77 95 11/29/21 12:26 78 154/100 H 11/29/21 12:23 75 95 11/29/21 12:20 78 155/90 H 11/29/21 12:18 86 97 11/29/21 12:15 83 155/91 H 11/29/21 12:13 86 98 11/29/21 12:09 85 154/92 H 11/29/21 12:08 84 98 11/29/21 12:04 92 H 155/90 H 11/29/21 12:03 84 97 11/29/21 12:00 92 H 157/86 H 11/29/21 11:58 99 H 97 11/29/21 11:54 85 142/91 H 11/29/21 11:53 81 95 11/29/21 11:50 92 H 134/89 11/29/21 11:48 83 96 11/29/21 11:43 91 H 164/86 H 95 11/29/21 11:39 85 138/88 11/29/21 11:38 87 98 11/29/21 11:36 101 H 145/91 H 11/29/21 11:33 81 142/84 H 96 11/29/21 11:30 125 H 149/82 H 11/29/21 11:28 96 H 98 11/29/21 11:27 109 H 151/87 H 11/29/21 11:24 107 H 135/77 11/29/21 11:23 93 H 96 11/29/21 11:21 106 H 147/77 H 11/29/21 11:18 107 H 145/77 H 97 11/29/21 11:15 114 H 142/73 H 11/29/21 11:13 100 H 97 11/29/21 11:12 101 H 149/78 H 11/29/21 11:09 81 130/72 11/29/21 11:08 91 H 96 11/29/21 11:03 133 H 98 11/29/21 11:02 133 H 155/97 H 11/29/21 11:00 18 11/29/21 10:58 116 H 98 11/29/21 10:53 129 H 99 11/29/21 10:52 114 H 154/99 H 11/29/21 10:42 107 H 147/101 H 11/29/21 10:32 125 H 150/102 H 11/29/21 10:23 118 H 143/93 H 11/29/21 10:21 125 H 150/102 H 11/29/21 10:17 129 H 134/86 11/29/21 10:07 134 H 142/93 H 11/29/21 09:46 84 186/115 H 11/29/21 09:30 84 186/114 H 11/29/21 09:14 80 175/114 H 11/29/21 09:11 86 174/110 H 11/29/21 09:10 85 161/116 H 11/29/21 09:05 80 173/117 H 11/29/21 08:52 37.0 C 78 194/123 H Coding Level of Care Code None
[2021-11-29 22:41] LABS: Hematocrit (blood only) 36.6 % (37-47); Hemoglobin 12.6 g/dL (12.0-16.0); Mean Corpuscular Hgb Conc 34.4 g/dL (32-36); Mean Corpuscular Volume 92.9 fL (80-100); Mean Platelet Volume 12.7 fL (7.4-10.4); Platelet Count 262 K/uL (130-400); RDW Coefficient of Variation 13.2 % (11.5-14.5); RDW Standard Deviation 45.2 fL (36.4-46.3); Red Blood Count 3.94 M/uL (4.2-5.4); White Blood Count 19.23 K/uL (4.8-10.8)
[2021-11-29 22:58] LABS: Albumin Globulin Ratio 0.9 (0.9-2); Albumin Level 3.2 gm/dl (3.4-5.0); BUN Creatinine Ratio 7.8 (10-20); Bilirubin,Total 0.8 mg/dl (0.2-1.0); Calcium 8.3 mg/dl (8.5-10.1); Creatinine Clr Calc Pharmacy 135.5 ml/min; Est GFR (African American) 119.2 ml/min; Est GFR (Non-African American) 102.9 ml/min; Globulin 3.4 gm/dl (2.5-4.0); Magnesium Therapeutic L&D Only 4.5 mg/dL (4.0-8.0); Potassium 3.2 mmol/L (3.5-5.1); Total Protein 6.6 gm/dl (6.0-8.3)
[2021-11-30] MEDS: PENICILLIN G POTASSIUM 3 MU in DEXTROSE 5% 100 ML IV PRN ×3 (02:03→10:00)
[2021-11-30] MEDS: fentaNYL 2MCG/ML ROPIVACAINE 1.25MG/ML 100 ML BAG EPI PRN ×2 (02:35→06:19)
[2021-11-30 05:57] LABS: Hematocrit (blood only) 35.1 % (37-47); Hemoglobin 12.3 g/dL (12.0-16.0); Mean Corpuscular Hemoglobin 32.7 pg (25-34); Mean Corpuscular Volume 93.4 fL (80-100); Mean Platelet Volume 12.7 fL (7.4-10.4); Nucleated RBC # (auto) 0.03 K/uL (0-0); Nucleated RBC % (auto) 0.1 %; Platelet Count 278 K/uL (130-400); RDW Coefficient of Variation 13.3 % (11.5-14.5); RDW Standard Deviation 45.5 fL (36.4-46.3); Red Blood Count 3.76 M/uL (4.2-5.4); White Blood Count 21.13 K/uL (4.8-10.8)
[2021-11-30] MEDS ORDERED: CLINDAMYCIN 900 MG in DEXTROSE 5% 50 ML IV SCH (06:00)
[2021-11-30] MEDS ORDERED: CITRIC ACID/SODIUM CITRATE 15 ML UDC PO SCH (06:00)
[2021-11-30] MEDS ORDERED: GENTAMICIN SULFATE 500 MG in DEXTROSE 5% 100 ML IV SCH (06:00)
[2021-11-30] MEDS ORDERED: ONDANSETRON INJ 2 MG/ML 2 ML VIAL IV PRN ×2 (06:22→11:55)
[2021-11-30 06:33] LABS: Albumin Globulin Ratio 0.9 (0.9-2); BUN Creatinine Ratio 8.8 (10-20); Bilirubin,Total 0.7 mg/dl (0.2-1.0); Calcium 7.6 mg/dl (8.5-10.1); Creatinine Clr Calc Pharmacy 130.4 ml/min; Est GFR (African American) 113.9 ml/min; Est GFR (Non-African American) 98.2 ml/min; Globulin 3.2 gm/dl (2.5-4.0); Magnesium Therapeutic L&D Only 5.3 mg/dL (4.0-8.0); Potassium 3.2 mmol/L (3.5-5.1); Total Protein 6.2 gm/dl (6.0-8.3)
--- NOTE | 2021-11-30 06:52 | Labor Progress Brief Note ---
Date of Service November 30, 2021 Subjective Has had difficulty obtaining good pain control with epidural overnight - it was replaced. She gains relief for some time, then begins to feel pain again. FHT Cat 1 [place] Q 2 SVE anterior lip/100/+1 station Continue position changes. Assessment & Plan Admission and Anticipated Discharge Date Admission Date: November 29, 2021 Results & Data ([facility]) Vital Signs (Past 12 Hours) Vital Signs Temp Pulse Resp BP Pulse Ox Pulse Ox 11/30/21 06:49 100 H 154/102 H 11/30/21 06:48 96 H 96 11/30/21 06:43 95 H 94 11/30/21 06:40 90 90 11/30/21 06:38 94 H 90 11/30/21 06:34 100 H 91 11/30/21 06:33 100 H 94 11/30/21 06:32 90 139/82 11/30/21 06:28 98 H 94 11/30/21 06:23 104 H 95 11/30/21 06:18 101 H 95 11/30/21 06:16 97 H 130/81 11/30/21 06:13 92 H 94 11/30/21 06:08 99 H 133/92 94 11/30/21 06:05 22 11/30/21 06:03 100 H 95 11/30/21 05:58 106 H 96 11/30/21 05:53 103 H 96 11/30/21 05:48 99 H 96 11/30/21 05:45 98 H 141/97 H 11/30/21 05:43 94 H 95 11/30/21 05:38 96 H 95 11/30/21 05:33 90 94 11/30/21 05:30 106 H 144/92 H 11/30/21 05:29 37.3 C 20 11/30/21 05:28 110 H 96 11/30/21 05:23 89 93 11/30/21 05:18 99 H 94 11/30/21 05:15 93 H 146/89 H 11/30/21 05:13 89 93 11/30/21 05:08 89 93 11/30/21 05:03 90 93 11/30/21 05:00 90 20 138/80 11/30/21 04:58 91 H 93 11/30/21 04:53 89 94 11/30/21 04:50 20 02/07/22 04:48 101 H 133/81 96 11/30/21 04:43 90 94 11/30/21 04:38 87 94 11/30/21 04:35 20 11/30/21 04:33 95 H 95 11/30/21 04:31 97 H 132/83 11/30/21 04:28 90 92 11/30/21 04:23 102 H 95 11/30/21 04:18 101 H 97 11/30/21 04:17 87 124/71 11/30/21 04:15 20 11/30/21 04:13 87 92 11/30/21 04:08 96 H 95 11/30/21 04:03 98 H 97 11/30/21 04:00 96 H 20 134/87 11/30/21 03:58 99 H 97 11/30/21 03:53 97 H 94 11/30/21 03:48 96 H 96 11/30/21 03:45 95 H 20 148/88 H 11/30/21 03:43 108 H 97 11/30/21 03:41 99 H 155/90 H 11/30/21 03:38 91 H 93 11/30/21 03:33 96 H 97 11/30/21 03:32 99 H 171/103 H 11/30/21 03:30 37.0 C 20 11/30/21 03:28 100 H 96 11/30/21 03:23 99 H 96 11/30/21 03:18 94 H 95 11/30/21 03:17 96 H 162/101 H 11/30/21 03:13 99 H 97 11/30/21 03:08 96 H 96 11/30/21 03:03 96 H 97 11/30/21 03:01 98 H 162/104 H 11/30/21 02:58 103 H 97 11/30/21 02:53 91 H 96 11/30/21 02:48 99 H 95 11/30/21 02:47 100 H 169/99 H 11/30/21 02:43 94 H 94 11/30/21 02:38 94 H 94 11/30/21 02:33 92 H 95 11/30/21 02:31 94 H 156/94 H 11/30/21 02:30 18 11/30/21 02:28 95 H 95 11/30/21 02:26 97 H 160/90 H 11/30/21 02:23 109 H 97 11/30/21 02:18 100 H 95 11/30/21 02:15 98 H 135/71 11/30/21 02:13 97 H 94 11/30/21 02:08 91 H 92 11/30/21 02:03 107 H 94 11/30/21 02:02 98 H 91 11/30/21 02:00 94 H 20 130/72 11/30/21 01:58 96 H 93 11/30/21 01:53 104 H 94 11/30/21 01:48 93 H 92 11/30/21 01:45 95 H 20 130/74 11/30/21 01:43 98 H 94 11/30/21 01:42 97 H 91 11/30/21 01:38 93 H 92 11/30/21 01:33 97 H 94 11/30/21 01:31 95 H 136/75 11/30/21 01:30 18 11/30/21 01:28 99 H 93 11/30/21 01:23 95 H 94 11/30/21 01:18 37.2 C 101 H 18 94 11/30/21 01:17 96 H 135/80 11/30/21 01:13 100 H 94 11/30/21 01:09 18 11/30/21 01:08 98 H 142/77 H 94 11/30/21 01:03 91 H 94 11/30/21 00:58 91 H 93 11/30/21 00:53 95 H 93 11/30/21 00:48 94 H 94 11/30/21 00:43 109 H 136/82 96 11/30/21 00:38 96 H 132/72 92 11/30/21 00:34 96 H 133/72 11/30/21 00:33 93 H 93 11/30/21 00:28 102 H 133/74 95 11/30/21 00:23 93 H 93 11/30/21 00:22 96 H 138/79 11/30/21 00:18 100 H 95 11/30/21 00:17 100 H 132/78 11/30/21 00:15 18 11/30/21 00:13 91 H 93 11/30/21 00:08 89 94 11/30/21 00:03 87 95 02/07/22 00:00 18 11/29/21 23:58 97 H 95 11/29/21 23:53 92 H 94 11/29/21 23:50 93 H 130/75 11/29/21 23:48 90 94 11/29/21 23:45 93 H 20 132/74 11/29/21 23:43 89 94 11/29/21 23:42 91 H 133/77 11/29/21 23:38 92 H 94 11/29/21 23:35 97 H 139/82 11/29/21 23:33 93 H 93 11/29/21 23:30 93 H 20 133/79 11/29/21 23:28 100 H 95 11/29/21 23:25 91 H 148/89 H 11/29/21 23:23 96 H 95 11/29/21 23:21 89 145/91 H 11/29/21 23:18 96 H 93 11/29/21 23:15 37.0 C 96 H 18 149/90 H 11/29/21 23:13 93 H 93 11/29/21 23:10 100 H 155/95 H 11/29/21 23:08 99 H 95 11/29/21 23:06 90 23 153/96 H 11/29/21 23:03 94 H 93 11/29/21 22:58 96 H 158/94 H 94 11/29/21 22:55 103 H 89 L 11/29/21 22:54 109 H 166/102 H 11/29/21 22:53 119 H 96 11/29/21 22:51 120 H 161/106 H 11/29/21 22:48 107 H 168/108 H 95 11/29/21 22:45 112 H 177/113 H 11/29/21 22:43 107 H 97 11/29/21 22:42 113 H 176/112 H 11/29/21 22:39 110 H 176/115 H 11/29/21 22:38 107 H 94 11/29/21 22:37 115 H 173/111 H 11/29/21 22:33 101 H 165/97 H 96 11/29/21 22:30 111 H 22 169/103 H 11/29/21 22:28 104 H 162/103 H 96 11/29/21 22:25 107 H 177/106 H 11/29/21 22:23 102 H 97 11/29/21 22:21 102 H 169/100 H 11/29/21 22:20 96 11/29/21 22:18 102 H 169/105 H 96 11/29/21 22:16 102 H 169/110 H 11/29/21 22:13 104 H 96 11/29/21 22:12 104 H 174/114 H 11/29/21 22:11 104 H 170/111 H 11/29/21 22:10 103 H 166/111 H 11/29/21 22:08 104 H 96 11/29/21 22:06 100 H 159/96 H 11/29/21 22:05 22 11/29/21 22:04 108 H 158/94 H 11/29/21 22:03 112 H 95 11/29/21 22:00 93 H 164/95 H 11/29/21 21:58 99 H 158/88 H 96 11/29/21 21:54 94 H 164/94 H 11/29/21 21:53 97 H 97 11/29/21 21:52 95 H 171/97 H 11/29/21 21:49 96 H 160/90 H 11/29/21 21:48 98 H 96 11/29/21 21:46 96 H 164/91 H 11/29/21 21:43 94 H 158/91 H 96 11/29/21 21:40 101 H 158/90 H 11/29/21 21:38 100 H 95 11/29/21 21:37 91 H 155/92 H 11/29/21 21:35 22 11/29/21 21:34 97 H 158/95 H 11/29/21 21:33 93 H 94 11/29/21 21:31 105 H 152/94 H 11/29/21 21:28 95 H 154/85 H 93 11/29/21 21:25 86 151/85 H 11/29/21 21:23 92 H 93 11/29/21 21:22 87 152/87 H 11/29/21 21:19 86 150/85 H 11/29/21 21:18 90 93 11/29/21 21:16 85 149/81 H 11/29/21 21:13 82 145/81 H 93 11/29/21 21:10 94 H 138/81 11/29/21 21:08 99 H 96 11/29/21 21:07 85 150/80 H 11/29/21 21:05 37.2 C 22 11/29/21 21:04 82 144/78 H 11/29/21 21:03 85 93 11/29/21 21:01 87 144/76 H 11/29/21 20:58 79 146/81 H 92 11/29/21 20:57 81 90 11/29/21 20:55 104 H 131/76 11/29/21 20:53 99 H 98 11/29/21 20:52 90 147/84 H 11/29/21 20:49 86 142/80 H 11/29/21 20:48 90 93 11/29/21 20:46 78 143/82 H 11/29/21 20:45 82 89 L 11/29/21 20:43 88 131/70 93 11/29/21 20:40 88 135/74 11/29/21 20:39 83 91 11/29/21 20:38 82 91 11/29/21 20:36 94 H 131/67 11/29/21 20:35 20 11/29/21 20:34 85 130/65 89 L 11/29/21 20:33 88 91 11/29/21 20:31 82 124/66 11/29/21 20:29 90 90 11/29/21 20:28 81 22 117/68 95 11/29/21 20:25 91 H 133/65 11/29/21 20:23 94 H 94 11/29/21 20:22 93 H 129/68 90 11/29/21 20:19 97 H 121/65 11/29/21 20:18 103 H 94 11/29/21 20:16 107 H 116/65 11/29/21 20:15 22 11/29/21 20:13 110 H 143/85 H 95 11/29/21 20:10 105 H 153/90 H 11/29/21 20:08 98 H 165/92 H 96 11/29/21 20:07 110 H 134/79 11/29/21 20:05 103 H 135/77 11/29/21 20:04 103 H 136/72 11/29/21 20:03 107 H 97 11/29/21 20:01 116 H 161/97 H 11/29/21 19:58 131 H 176/103 H 96 11/29/21 19:53 122 H 97 11/29/21 19:52 115 H 161/99 H 11/29/21 19:49 123 H 163/94 H 11/29/21 19:48 118 H 97 11/29/21 19:46 115 H 155/89 H 11/29/21 19:43 105 H 158/95 H 96 11/29/21 19:40 111 H 168/95 H 11/29/21 19:38 120 H 97 11/29/21 19:37 125 H 156/94 H 11/29/21 19:34 122 H 161/100 H 11/29/21 19:33 121 H 97 11/29/21 19:31 106 H 155/97 H 11/29/21 19:28 114 H 163/101 H 97 11/29/21 19:25 102 H 158/94 H 11/29/21 19:23 103 H 97 11/29/21 19:22 105 H 154/98 H 11/29/21 19:19 109 H 164/99 H 11/29/21 19:18 103 H 96 11/29/21 19:16 97 H 157/88 H 11/29/21 19:15 20 11/29/21 19:13 99 H 146/86 H 96 11/29/21 19:10 97 H 151/84 H 11/29/21 19:08 100 H 96 11/29/21 19:07 104 H 158/88 H 11/29/21 19:04 105 H 157/89 H 11/29/21 19:03 108 H 96 11/29/21 19:00 36.9 C 11/29/21 18:58 103 H 169/96 H 96 11/29/21 18:55 172/93 H 11/29/21 18:53 100 H 95 11/29/21 18:52 99 H 145/82 H Coding Level of Care Code None
[2021-11-30] MEDS: MAGNESIUM SULFATE / WTR 40 GM/1,000 ML BAG IV SCH (07:19)
--- NOTE | 2021-11-30 10:13 | Labor Progress Brief Note ---
Date of Service November 30, 2021 Subjective pushing with good effort Assessment & Plan (1) Elevated blood pressure complicating , antepartum: Plan: Pushing with good effort, but no drop in station since I checked about 45 minutes ago. There is a narrow outlet and narrow arch. I think its adrien. Discussed with the patient and fob my concerns. She is concerned her epidural won't work for a . Fetus reassuring during pushing. Will continue second stage. Admission and Anticipated Discharge Date Admission Date: November 29, 2021 Physical Exam Physical Exam: c/c/+1--large amount of caput but true head is 0-+1 toco--q2-3min efm--110s with mod variabiltiy, accels present, no decels feels adrien Results & Data ([facility]) Vital Signs (Past 12 Hours) Vital Signs Temp Pulse Resp BP Pulse Ox Pulse Ox 11/30/21 10:08 110 H 93 11/30/21 10:04 36.8 C 18 11/30/21 10:03 104 H 92 11/30/21 10:02 96 H 90 11/30/21 09:58 117 H 95 11/30/21 09:57 104 H 90 11/30/21 09:53 127 H 96 11/30/21 09:48 107 H 96 11/30/21 09:46 123 H 143/78 H 11/30/21 09:43 108 H 95 11/30/21 09:38 115 H 96 11/30/21 09:33 104 H 96 11/30/21 09:31 125 H 119/85 11/30/21 09:28 108 H 95 11/30/21 09:23 114 H 96 11/30/21 09:18 109 H 96 11/30/21 09:17 102 H 148/96 H 11/30/21 09:13 101 H 96 11/30/21 09:08 115 H 94 11/30/21 09:03 106 H 96 11/30/21 09:02 115 H 110/73 11/30/21 08:58 102 H 96 11/30/21 08:53 105 H 96 11/30/21 08:48 117 H 96 11/30/21 08:45 103 H 146/90 H 11/30/21 08:43 94 H 94 11/30/21 08:38 106 H 96 11/30/21 08:37 90 91 11/30/21 08:33 85 96 11/30/21 08:30 88 138/81 11/30/21 08:29 94 H 91 11/30/21 08:28 91 H 95 11/30/21 08:24 99 H 91 11/30/21 08:23 95 H 93 11/30/21 08:19 80 90 11/30/21 08:18 96 H 93 11/30/21 08:16 80 138/81 11/30/21 08:15 16 11/30/21 08:13 89 89 L 11/30/21 08:10 79 88 L 11/30/21 08:08 85 87 L 11/30/21 08:04 78 89 L 11/30/21 08:03 96 H 88 L 11/30/21 08:01 85 134/92 11/30/21 07:59 88 89 L 11/30/21 07:58 85 92 11/30/21 07:53 95 H 97 11/30/21 07:51 91 H 90 11/30/21 07:48 101 H 91 11/30/21 07:45 97 H 143/86 H 11/30/21 07:43 96 H 93 11/30/21 07:40 94 H 91 11/30/21 07:38 98 H 92 11/30/21 07:33 93 H 93 11/30/21 07:32 92 H 136/92 89 L 11/30/21 07:30 18 11/30/21 07:28 89 94 11/30/21 07:23 95 H 97 11/30/21 07:19 92 H 90 11/30/21 07:18 93 H 95 11/30/21 07:16 97 H 159/103 H 11/30/21 07:15 36.9 C 20 11/30/21 07:13 95 H 92 11/30/21 07:08 96 H 97 11/30/21 07:03 100 H 95 11/30/21 07:02 104 H 142/98 H 11/30/21 06:58 94 H 91 11/30/21 06:55 99 H 90 11/30/21 06:53 96 H 94 11/30/21 06:49 100 H 154/102 H 11/30/21 06:48 96 H 96 02/07/22 06:43 95 H 94 11/30/21 06:40 90 90 11/30/21 06:38 94 H 90 11/30/21 06:34 100 H 91 11/30/21 06:33 100 H 94 11/30/21 06:32 90 139/82 11/30/21 06:28 98 H 94 11/30/21 06:23 104 H 95 11/30/21 06:18 101 H 95 11/30/21 06:16 97 H 130/81 11/30/21 06:13 92 H 94 11/30/21 06:08 99 H 133/92 94 11/30/21 06:05 22 11/30/21 06:03 100 H 95 11/30/21 05:58 106 H 96 11/30/21 05:53 103 H 96 11/30/21 05:48 99 H 96 11/30/21 05:45 98 H 141/97 H 11/30/21 05:43 94 H 95 11/30/21 05:38 96 H 95 11/30/21 05:33 90 94 11/30/21 05:30 106 H 144/92 H 11/30/21 05:29 37.3 C 20 11/30/21 05:28 110 H 96 11/30/21 05:23 89 93 11/30/21 05:18 99 H 94 11/30/21 05:15 93 H 146/89 H 11/30/21 05:13 89 93 11/30/21 05:08 89 93 11/30/21 05:03 90 93 11/30/21 05:00 90 20 138/80 11/30/21 04:58 91 H 93 11/30/21 04:53 89 94 11/30/21 04:50 20 11/30/21 04:48 101 H 133/81 96 11/30/21 04:43 90 94 11/30/21 04:38 87 94 11/30/21 04:35 20 11/30/21 04:33 95 H 95 11/30/21 04:31 97 H 132/83 11/30/21 04:28 90 92 11/30/21 04:23 102 H 95 11/30/21 04:18 101 H 97 11/30/21 04:17 87 124/71 11/30/21 04:15 20 11/30/21 04:13 87 92 11/30/21 04:08 96 H 95 11/30/21 04:03 98 H 97 11/30/21 04:00 96 H 20 134/87 11/30/21 03:58 99 H 97 11/30/21 03:53 97 H 94 11/30/21 03:48 96 H 96 11/30/21 03:45 95 H 20 148/88 H 11/30/21 03:43 108 H 97 11/30/21 03:41 99 H 155/90 H 11/30/21 03:38 91 H 93 11/30/21 03:33 96 H 97 11/30/21 03:32 99 H 171/103 H 11/30/21 03:30 37.0 C 20 11/30/21 03:28 100 H 96 11/30/21 03:23 99 H 96 11/30/21 03:18 94 H 95 11/30/21 03:17 96 H 162/101 H 11/30/21 03:13 99 H 97 11/30/21 03:08 96 H 96 11/30/21 03:03 96 H 97 11/30/21 03:01 98 H 162/104 H 11/30/21 02:58 103 H 97 11/30/21 02:53 91 H 96 11/30/21 02:48 99 H 95 11/30/21 02:47 100 H 169/99 H 11/30/21 02:43 94 H 94 11/30/21 02:38 94 H 94 11/30/21 02:33 92 H 95 11/30/21 02:31 94 H 156/94 H 11/30/21 02:30 18 11/30/21 02:28 95 H 95 11/30/21 02:26 97 H 160/90 H 11/30/21 02:23 109 H 97 11/30/21 02:18 100 H 95 11/30/21 02:15 98 H 135/71 11/30/21 02:13 97 H 94 11/30/21 02:08 91 H 92 11/30/21 02:03 107 H 94 11/30/21 02:02 98 H 91 11/30/21 02:00 94 H 20 130/72 11/30/21 01:58 96 H 93 11/30/21 01:53 104 H 94 11/30/21 01:48 93 H 92 11/30/21 01:45 95 H 20 130/74 11/30/21 01:43 98 H 94 11/30/21 01:42 97 H 91 11/30/21 01:38 93 H 92 11/30/21 01:33 97 H 94 11/30/21 01:31 95 H 136/75 11/30/21 01:30 18 11/30/21 01:28 99 H 93 11/30/21 01:23 95 H 94 11/30/21 01:18 37.2 C 101 H 18 94 11/30/21 01:17 96 H 135/80 11/30/21 01:13 100 H 94 11/30/21 01:09 18 11/30/21 01:08 98 H 142/77 H 94 11/30/21 01:03 91 H 94 11/30/21 00:58 91 H 93 11/30/21 00:53 95 H 93 11/30/21 00:48 94 H 94 11/30/21 00:43 109 H 136/82 96 11/30/21 00:38 96 H 132/72 92 11/30/21 00:34 96 H 133/72 11/30/21 00:33 93 H 93 11/30/21 00:28 102 H 133/74 95 11/30/21 00:23 93 H 93 11/30/21 00:22 96 H 138/79 11/30/21 00:18 100 H 95 11/30/21 00:17 100 H 132/78 11/30/21 00:15 18 11/30/21 00:13 91 H 93 11/30/21 00:08 89 94 11/30/21 00:03 87 95 11/30/21 00:00 18 11/29/21 23:58 97 H 95 11/29/21 23:53 92 H 94 11/29/21 23:50 93 H 130/75 11/29/21 23:48 90 94 11/29/21 23:45 93 H 20 132/74 11/29/21 23:43 89 94 11/29/21 23:42 91 H 133/77 11/29/21 23:38 92 H 94 11/29/21 23:35 97 H 139/82 11/29/21 23:33 93 H 93 11/29/21 23:30 93 H 20 133/79 11/29/21 23:28 100 H 95 11/29/21 23:25 91 H 148/89 H 11/29/21 23:23 96 H 95 11/29/21 23:21 89 145/91 H 11/29/21 23:18 96 H 93 11/29/21 23:15 37.0 C 96 H 18 149/90 H 11/29/21 23:13 93 H 93 11/29/21 23:10 100 H 155/95 H 11/29/21 23:08 99 H 95 11/29/21 23:06 90 23 153/96 H 11/29/21 23:03 94 H 93 11/29/21 22:58 96 H 158/94 H 94 11/29/21 22:55 103 H 89 L 11/29/21 22:54 109 H 166/102 H 11/29/21 22:53 119 H 96 11/29/21 22:51 120 H 161/106 H 11/29/21 22:48 107 H 168/108 H 95 11/29/21 22:45 112 H 177/113 H 11/29/21 22:43 107 H 97 11/29/21 22:42 113 H 176/112 H 11/29/21 22:39 110 H 176/115 H 11/29/21 22:38 107 H 94 11/29/21 22:37 115 H 173/111 H 11/29/21 22:33 101 H 165/97 H 96 11/29/21 22:30 111 H 22 169/103 H 11/29/21 22:28 104 H 162/103 H 96 11/29/21 22:25 107 H 177/106 H 11/29/21 22:23 102 H 97 11/29/21 22:21 102 H 169/100 H 11/29/21 22:20 96 11/29/21 22:18 102 H 169/105 H 96 11/29/21 22:16 102 H 169/110 H 11/29/21 22:13 104 H 96 11/29/21 22:12 104 H 174/114 H 11/29/21 22:11 104 H 170/111 H Coding Level of Care Code None Diagnoses Elevated blood pressure complicating , antepartum O16.9
[2021-11-30] MEDS ORDERED: AZITHROMYCIN 500 MG in DEXTROSE 5% 250 ML IV ONE (10:39)
--- NOTE | 2021-11-30 10:43 | Labor Progress Brief Note ---
Date of Service November 30, 2021 Subjective pushing with good effort but getting tired Assessment & Plan (1) Elevated blood pressure complicating , antepartum: (2) Failure of descent in labor, delivered, current hospitalization: Plan: Discussed could continue pushing, but I have my doubts about this baby fitting out of the pelvis given no descent for at last 1.5 hours. She notes she is getting tired and reallyl increased in pain and so she is ok with proceeding [facility] c/s. consent reviewed and signed. Admission and Anticipated Discharge Date Admission Date: November 29, 2021 Physical Exam Physical Exam: c/c/0-+1--no change in station since I first started monitoring patient over 1.5 hours toco--q2-4min efm--110s with mod variability, small accels, no decels Results & Data ([facility]) Vital Signs (Past 12 Hours) Vital Signs Temp Pulse Resp BP Pulse Ox 11/30/21 10:38 104 H 94 11/30/21 10:36 102 H 90 11/30/21 10:33 106 H 94 11/30/21 10:28 118 H 96 11/30/21 10:23 105 H 93 11/30/21 10:18 97 H 92 11/30/21 10:15 100 H 22 158/99 H 11/30/21 10:13 122 H 95 11/30/21 10:08 110 H 93 11/30/21 10:04 36.8 C 18 11/30/21 10:03 104 H 92 11/30/21 10:02 96 H 90 11/30/21 09:58 117 H 95 11/30/21 09:57 104 H 90 11/30/21 09:53 127 H 96 11/30/21 09:48 107 H 96 11/30/21 09:46 123 H 143/78 H 11/30/21 09:43 108 H 95 11/30/21 09:38 115 H 96 11/30/21 09:33 104 H 96 11/30/21 09:31 125 H 119/85 11/30/21 09:28 108 H 95 11/30/21 09:23 114 H 96 11/30/21 09:18 109 H 96 11/30/21 09:17 102 H 148/96 H 11/30/21 09:13 101 H 96 11/30/21 09:08 115 H 94 11/30/21 09:03 106 H 96 11/30/21 09:02 115 H 110/73 11/30/21 08:58 102 H 96 11/30/21 08:53 105 H 96 11/30/21 08:48 117 H 96 11/30/21 08:45 103 H 146/90 H 11/30/21 08:43 94 H 94 11/30/21 08:38 106 H 96 11/30/21 08:37 90 91 11/30/21 08:33 85 96 11/30/21 08:30 88 138/81 11/30/21 08:29 94 H 91 11/30/21 08:28 91 H 95 11/30/21 08:24 99 H 91 11/30/21 08:23 95 H 93 11/30/21 08:19 80 90 11/30/21 08:18 96 H 93 11/30/21 08:16 80 138/81 11/30/21 08:15 16 11/30/21 08:13 89 89 L 11/30/21 08:10 79 88 L 11/30/21 08:08 85 87 L 11/30/21 08:04 78 89 L 11/30/21 08:03 96 H 88 L 11/30/21 08:01 85 134/92 11/30/21 07:59 88 89 L 11/30/21 07:58 85 92 11/30/21 07:53 95 H 97 11/30/21 07:51 91 H 90 11/30/21 07:48 101 H 91 11/30/21 07:45 97 H 143/86 H 11/30/21 07:43 96 H 93 11/30/21 07:40 94 H 91 11/30/21 07:38 98 H 92 11/30/21 07:33 93 H 93 11/30/21 07:32 92 H 136/92 89 L 11/30/21 07:30 18 11/30/21 07:28 89 94 11/30/21 07:23 95 H 97 11/30/21 07:19 92 H 90 11/30/21 07:18 93 H 95 11/30/21 07:16 97 H 159/103 H 11/30/21 07:15 36.9 C 20 11/30/21 07:13 95 H 92 11/30/21 07:08 96 H 97 11/30/21 07:03 100 H 95 11/30/21 07:02 104 H 142/98 H 11/30/21 06:58 94 H 91 11/30/21 06:55 99 H 90 11/30/21 06:53 96 H 94 11/30/21 06:49 100 H 154/102 H 11/30/21 06:48 96 H 96 11/30/21 06:43 95 H 94 11/30/21 06:40 90 90 11/30/21 06:38 94 H 90 11/30/21 06:34 100 H 91 11/30/21 06:33 100 H 94 11/30/21 06:32 90 139/82 11/30/21 06:28 98 H 94 11/30/21 06:23 104 H 95 11/30/21 06:18 101 H 95 11/30/21 06:16 97 H 130/81 11/30/21 06:13 92 H 94 11/30/21 06:08 99 H 133/92 94 11/30/21 06:05 22 11/30/21 06:03 100 H 95 11/30/21 05:58 106 H 96 11/30/21 05:53 103 H 96 11/30/21 05:48 99 H 96 11/30/21 05:45 98 H 141/97 H 11/30/21 05:43 94 H 95 11/30/21 05:38 96 H 95 11/30/21 05:33 90 94 11/30/21 05:30 106 H 144/92 H 11/30/21 05:29 37.3 C 20 11/30/21 05:28 110 H 96 11/30/21 05:23 89 93 11/30/21 05:18 99 H 94 11/30/21 05:15 93 H 146/89 H 11/30/21 05:13 89 93 11/30/21 05:08 89 93 11/30/21 05:03 90 93 11/30/21 05:00 90 20 138/80 11/30/21 04:58 91 H 93 11/30/21 04:53 89 94 11/30/21 04:50 20 11/30/21 04:48 101 H 133/81 96 11/30/21 04:43 90 94 11/30/21 04:38 87 94 11/30/21 04:35 20 11/30/21 04:33 95 H 95 11/30/21 04:31 97 H 132/83 11/30/21 04:28 90 92 11/30/21 04:23 102 H 95 11/30/21 04:18 101 H 97 11/30/21 04:17 87 124/71 11/30/21 04:15 20 11/30/21 04:13 87 92 11/30/21 04:08 96 H 95 11/30/21 04:03 98 H 97 11/30/21 04:00 96 H 20 134/87 11/30/21 03:58 99 H 97 11/30/21 03:53 97 H 94 11/30/21 03:48 96 H 96 11/30/21 03:45 95 H 20 148/88 H 11/30/21 03:43 108 H 97 11/30/21 03:41 99 H 155/90 H 11/30/21 03:38 91 H 93 11/30/21 03:33 96 H 97 11/30/21 03:32 99 H 171/103 H 11/30/21 03:30 37.0 C 20 11/30/21 03:28 100 H 96 11/30/21 03:23 99 H 96 11/30/21 03:18 94 H 95 11/30/21 03:17 96 H 162/101 H 11/30/21 03:13 99 H 97 11/30/21 03:08 96 H 96 11/30/21 03:03 96 H 97 11/30/21 03:01 98 H 162/104 H 11/30/21 02:58 103 H 97 11/30/21 02:53 91 H 96 11/30/21 02:48 99 H 95 11/30/21 02:47 100 H 169/99 H 11/30/21 02:43 94 H 94 11/30/21 02:38 94 H 94 11/30/21 02:33 92 H 95 11/30/21 02:31 94 H 156/94 H 11/30/21 02:30 18 11/30/21 02:28 95 H 95 11/30/21 02:26 97 H 160/90 H 11/30/21 02:23 109 H 97 02/07/22 02:18 100 H 95 11/30/21 02:15 98 H 135/71 11/30/21 02:13 97 H 94 11/30/21 02:08 91 H 92 11/30/21 02:03 107 H 94 11/30/21 02:02 98 H 91 11/30/21 02:00 94 H 20 130/72 11/30/21 01:58 96 H 93 11/30/21 01:53 104 H 94 11/30/21 01:48 93 H 92 11/30/21 01:45 95 H 20 130/74 11/30/21 01:43 98 H 94 11/30/21 01:42 97 H 91 11/30/21 01:38 93 H 92 11/30/21 01:33 97 H 94 11/30/21 01:31 95 H 136/75 11/30/21 01:30 18 11/30/21 01:28 99 H 93 11/30/21 01:23 95 H 94 11/30/21 01:18 37.2 C 101 H 18 94 11/30/21 01:17 96 H 135/80 11/30/21 01:13 100 H 94 11/30/21 01:09 18 11/30/21 01:08 98 H 142/77 H 94 11/30/21 01:03 91 H 94 11/30/21 00:58 91 H 93 11/30/21 00:53 95 H 93 11/30/21 00:48 94 H 94 11/30/21 00:43 109 H 136/82 96 11/30/21 00:38 96 H 132/72 92 11/30/21 00:34 96 H 133/72 11/30/21 00:33 93 H 93 11/30/21 00:28 102 H 133/74 95 11/30/21 00:23 93 H 93 11/30/21 00:22 96 H 138/79 11/30/21 00:18 100 H 95 11/30/21 00:17 100 H 132/78 11/30/21 00:15 18 11/30/21 00:13 91 H 93 11/30/21 00:08 89 94 11/30/21 00:03 87 95 11/30/21 00:00 18 11/29/21 23:58 97 H 95 0206/22 23:53 92 H 94 11/29/21 23:50 93 H 130/75 11/29/21 23:48 90 94 11/29/21 23:45 93 H 20 132/74 11/29/21 23:43 89 94 11/29/21 23:42 91 H 133/77 11/29/21 23:38 92 H 94 11/29/21 23:35 97 H 139/82 11/29/21 23:33 93 H 93 11/29/21 23:30 93 H 20 133/79 11/29/21 23:28 100 H 95 11/29/21 23:25 91 H 148/89 H 11/29/21 23:23 96 H 95 11/29/21 23:21 89 145/91 H 11/29/21 23:18 96 H 93 11/29/21 23:15 37.0 C 96 H 18 149/90 H 11/29/21 23:13 93 H 93 11/29/21 23:10 100 H 155/95 H 11/29/21 23:08 99 H 95 11/29/21 23:06 90 23 153/96 H 11/29/21 23:03 94 H 93 11/29/21 22:58 96 H 158/94 H 94 11/29/21 22:55 103 H 89 L 11/29/21 22:54 109 H 166/102 H 11/29/21 22:53 119 H 96 11/29/21 22:51 120 H 161/106 H 11/29/21 22:48 107 H 168/108 H 95 11/29/21 22:45 112 H 177/113 H 11/29/21 22:43 107 H 97 11/29/21 22:42 113 H 176/112 H Coding Level of Care Code None Diagnoses Elevated blood pressure complicating , antepartum O16.9 Failure of descent in labor, delivered, current hospitalization O62.2
[2021-11-30] MEDS ORDERED: LACTATED RINGER'S 1,000 ML IV SCH ×2 (10:45→12:45)
[2021-11-30] MEDS: LACTATED RINGER'S 1,000 ML IV PRN (10:45)
[2021-11-30] MEDS ORDERED: fentaNYL citrate 100 MCG/2 ML VIAL ONE (11:08)
[2021-11-30] MEDS ORDERED: LIDOCAINE 2%/EPINEPHRINE 1:200,000 20 ML SDV ONE (11:08)
[2021-11-30] MEDS ORDERED: MoRPHine SULFATE PF 1 MG/ML 10 ML AMP/VIAL ONE (11:33)
[2021-11-30] MEDS ORDERED: CARBOPROST TROMETHAMINE 250 MCG/ML AMPUL ONE (11:42)
[2021-11-30] MEDS ORDERED: OXYTOCIN 10 UNITS/ML 10ML VIAL ONE (11:42)
[2021-11-30] MEDS ORDERED: PHENYLEPHRINE 100MCG/ML 5ML SYR ONE (11:44)
[2021-11-30] MEDS ORDERED: ONDANSETRON INJ 2 MG/ML 2 ML VIAL ONE (11:46)
[2021-11-30] MEDS ORDERED: CARBOPROST TROMETHAMINE 250 MCG/ML AMPUL IM ONE (11:50)
[2021-11-30] MEDS ORDERED: ARISTA ABSORBABLE HEMOSTAT 3GM TOP ONE (11:50)
[2021-11-30] MEDS ORDERED: NALOXONE HCL 0.4 MG/1 ML VIAL/CARP IV PRN (11:55)
[2021-11-30] MEDS ORDERED: ePHEDrine sulfate 50 MG/ML AMP IV PRN (11:55)
[2021-11-30] MEDS ORDERED: LACTATED RINGER'S 500 ML IV PRN (11:55)
[2021-11-30] MEDS ORDERED: KETOROLAC 30 MG/ML VIAL IV PRN (11:55)
[2021-11-30] MEDS ORDERED: NALBUPHINE HCL INJ 10 MG/ML AMP IV PRN (11:55)
[2021-11-30] MEDS ORDERED: MoRPHine SULFATE PF 1 MG/ML 10 ML AMP/VIAL EPI ONE (11:55)
[2021-11-30] MEDS ORDERED: diphenhydrAMINE 50 MG/ML VIAL IV PRN (11:55)
[2021-11-30] MEDS ORDERED: NALOXONE HCL 1 MG in SODIUM CHLORIDE 0.9% 1000ML 1,000 ML IV PRN (11:55)
[2021-11-30] MEDS ORDERED: HYDROmorphone INJ 0.5 MG/0.5 ML SYR IV PRN (11:55)
[2021-11-30] MEDS ORDERED: NALOXONE HCL 0.08 MG in SYRINGE 1.8 ML IV PRN (11:55)
[2021-11-30] MEDS ORDERED: SODIUM CHLORIDE 0.9% 1000ML 1,000 ML IV SCH (12:00)
[2021-11-30] MEDS ORDERED: NO NARCOTICS OR SEDATIVES SCH (12:00)
[2021-11-30] MEDS ORDERED: miSOPROStoL 200 MCG TAB ONE ×2 (12:08→12:10)
[2021-11-30] MEDS ORDERED: miSOPROStoL 200 MCG TAB PR ONE (12:13)
[2021-11-30] MEDS ORDERED: SENNA 8.6 MG TAB PO PRN (12:31)
[2021-11-30] MEDS ORDERED: MAGNESIUM HYDROXIDE SUSP 30 ML UDC PO PRN (12:31)
[2021-11-30] MEDS ORDERED: DIPHTHERIA/TETANUS/PERTUSSIS 0.5 ML SYR/VIAL IM ONE (12:31)
[2021-11-30] MEDS ORDERED: BENZOCAINE 20% AER SPR 82.5 GM CAN EXT PRN (12:31)
[2021-11-30] MEDS ORDERED: HYDROCORTISONE ACETATE 25 MG SUPP PR PRN (12:31)
--- NOTE | 2021-11-30 12:42 | Operative Report ---
PG Post Operative Report Pre & Post Diagnosis Operation Date: 11/30/21 11:00 Pre-Op Diagnosis: IUP at 37.6 weeks; pre-eclampsia; failure to descend Post-Op Diagnosis: IUP at 37.6 weeks; pre-eclampsia; failure to descend I identified the patient and participated in the time-out.: Yes Procedure Operation Date: 11/30/21 11:00 Actual Procedures p Section in LD; delivery of live female at 1139 - Jennifer Diaz MD, FACOG Surgeon Jennifer Diaz MD, FACOG Screen Machine Operator Dr. Quiñones Estimated Blood Loss 900 Findings Consistent with Post-Op Diagnosis viable female infant wedged into the pelvis in oa position. nl tubes and ovaries bilaterally. There was a bleeding vessel on the posterior wall of the uterus that was sutured. On putting the whittaker in the bladder, the urine was concentrated , blood tinged and particulate. Fluids 1600cc Specimens none Drains whittaker Anesthesia Type Labor Epidural Complications none Disposition Accompanied Patient To Recovery: Yes Disposition: L&D Indications Patient is a at 37 6/7 weeks who presents with srom and preeclampsia. She progressed and pushed for 2 hours with failure to descend. Delivered an 8+# baby Description of Procedure The patient was taken to the operating room where she was identified verbally and by bracelet. She was seated on the operating table where her epidural anesthetic was dosed by anesthesia. She was then placed in the supine position with a leftward tilt. A Whittaker catheter had been placed sterilely. the patient was prepped and draped in a normal standard fashion. the anesthetic was tested and found to be adequate. A time-out was held, identifying correct patient, procedure, positioning and preoperative antibiotics. There were no concerns. A Pfannenstiel skin incision was made with a knife and taken down to the underlying layer of fascia with the knife and Bovie electrocautery. Bleeding was attended to with the Bovie. The fascia was incised in the midline with the knife and taken out laterally with scissors. The superior edge of the fascial incision was grasped, elevated and the underlying layer of rectus muscle was taken off bluntly and with scissors. In a similar fashion, the inferior edge of the fascial incision was grasped, elevated and the underlying layer of rectus muscle was taken off bluntly and with scissors. The muscles were bluntly in the midline. The peritoneum was entered bluntly. The incision was then stretched. The bladder blade was placed. The vesicouterine peritoneum was identified, entered with scissors and taken out laterally with scissors. The bladder flap was created digitally A hysterotomy incision was scored with a knife and the incision was stretched superiorly and inferiorly with the bullet assembly press operator's fingers. The operators hand was placed into the incision and the head was delivered atraumatically. It was very deep in the pelvis and wedged. No nuchal cord. The nose and mouth were bulb suctioned. the rest of the was then delivered without difficulty. The nose and mouth were again bulb suctioned. The cord was clamped and cut and the was then handed off to the awaiting instructor knitting for drying and attention. Cord blood and segment were obtained. The placenta was Manually extracted. The uterus was exteriorized and cleared of all clot and debris with moistened laparotomy sponges. The hysterotomy incision was repaired in two layers, the first in a running locked layer, the second in an imbricating layer. Hemostasis was noted to be good. Posterior cul-de-sac was irrigated and cleared of all clot and debris. A bleeding vessel was noted on the posterior wall of the uterus. This required 3 [id number] sutures to obtain hemostasis. The hysterotomy incision was again inspected and found to be hemostatic. the uterus was reinteriorized. Hysterotomy incision was again and another suture needed for hemostasis. Elissa was placed in the corner of the uterine incision on the left. Rectus muscles were reapproximated with several interrupted stitches of 0 Vicryl. The fascia was then reapproximated with 0 Vicryl starting at the edges and meeting in the midline. The subcuticular tissues were copiously irrigated and bleeding was attended to with cautery. The skin was then closed with 4-0 Vicryl in a subcuticular fashion. All sponge, lap and needle counts were correct x 2. The patient was then taken back to labor and delivery in stable condition. I attest to the content of the Intraoperative Record and any orders documented therein. Any exceptions are noted below. OB Procedure Charges 41269
[2021-11-30 13:04] LABS: Hematocrit (blood only) 31.5 % (37-47); Hemoglobin 10.7 g/dL (12.0-16.0); Mean Corpuscular Hemoglobin 31.8 pg (25-34); Mean Corpuscular Volume 93.8 fL (80-100); Mean Platelet Volume 12.5 fL (7.4-10.4); Platelet Count 233 K/uL (130-400); RDW Coefficient of Variation 13.3 % (11.5-14.5); RDW Standard Deviation 45.3 fL (36.4-46.3); Red Blood Count 3.36 M/uL (4.2-5.4); White Blood Count 25.32 K/uL (4.8-10.8)
[2021-11-30] MEDS: SIMETHICONE 80 MG CHEW PO SCH ×3 (13:22→21:05)
[2021-11-30] MEDS: OXYTOCIN 20 UNITS in LACTATED RINGER'S 1,000 ML IV SCH (14:10)
--- NOTE | 2021-11-30 14:17 | Anesthesiology Progress Note ---
Date of Service November 30, 2021 Anesthesia Post Procedure Vital Signs Vital Signs: Temp Pulse Resp BP Pulse Ox Pulse Ox 11/30/21 14:13 77 97 11/30/21 14:12 81 133/82 11/30/21 14:08 82 98 11/30/21 14:03 77 98 11/30/21 13:58 83 99 11/30/21 13:53 87 98 11/30/21 13:52 90 144/85 H 11/30/21 13:48 84 99 11/30/21 13:43 80 98 11/30/21 13:42 85 142/85 H 11/30/21 13:38 83 98 11/30/21 13:33 82 97 11/30/21 13:32 86 141/79 H 11/30/21 13:30 85 94 11/30/21 13:28 93 H 95 11/30/21 13:24 90 92 11/30/21 13:23 88 95 11/30/21 13:22 90 130/77 11/30/21 13:18 88 97 11/30/21 13:13 91 H 95 11/30/21 13:12 88 126/72 11/30/21 13:11 91 H 93 11/30/21 13:08 85 97 11/30/21 13:03 91 H 97 11/30/21 13:02 93 H 117/69 11/30/21 12:58 94 H 97 11/30/21 12:53 91 H 97 11/30/21 12:50 85 109/63 11/30/21 12:48 94 H 97 11/30/21 12:43 93 H 96 11/30/21 12:39 87 93 11/30/21 12:38 85 94 11/30/21 12:33 86 18 117/59 L 93 11/30/21 11:14 104 H 151/87 H 11/30/21 11:13 96 H 92 11/30/21 11:11 99 H 146/86 H 11/30/21 11:10 100 H 91 11/30/21 11:08 99 H 153/93 H 95 11/30/21 11:05 100 H 148/94 H 11/30/21 11:03 104 H 149/91 H 96 11/30/21 10:58 104 H 93 11/30/21 10:56 97 H 90 11/30/21 10:53 98 H 94 11/30/21 10:50 100 H 90 11/30/21 10:48 105 H 96 11/30/21 10:43 99 H 95 11/30/21 10:38 104 H 94 11/30/21 10:36 102 H 90 11/30/21 10:33 106 H 94 11/30/21 10:28 118 H 96 11/30/21 10:23 105 H 93 11/30/21 10:18 97 H 92 11/30/21 10:15 100 H 22 158/99 H 11/30/21 10:13 122 H 95 11/30/21 10:08 110 H 93 11/30/21 10:04 36.8 C 18 11/30/21 10:03 104 H 92 11/30/21 10:02 96 H 90 11/30/21 09:58 117 H 95 11/30/21 09:57 104 H 90 11/30/21 09:53 127 H 96 11/30/21 09:48 107 H 96 11/30/21 09:46 123 H 143/78 H 11/30/21 09:43 108 H 95 11/30/21 09:38 115 H 96 11/30/21 09:33 104 H 96 11/30/21 09:31 125 H 119/85 11/30/21 09:28 108 H 95 11/30/21 09:23 114 H 96 11/30/21 09:18 109 H 96 11/30/21 09:17 102 H 148/96 H 11/30/21 09:13 101 H 96 11/30/21 09:08 115 H 94 11/30/21 09:03 106 H 96 11/30/21 09:02 115 H 110/73 11/30/21 08:58 102 H 96 11/30/21 08:53 105 H 96 11/30/21 08:48 117 H 96 11/30/21 08:45 103 H 146/90 H 11/30/21 08:43 94 H 94 11/30/21 08:38 106 H 96 11/30/21 08:37 90 91 11/30/21 08:33 85 96 11/30/21 08:30 88 138/81 11/30/21 08:29 94 H 91 11/30/21 08:28 91 H 95 11/30/21 08:24 99 H 91 11/30/21 08:23 95 H 93 11/30/21 08:19 80 90 11/30/21 08:18 96 H 93 11/30/21 08:16 80 138/81 11/30/21 08:15 16 11/30/21 08:13 89 89 L 11/30/21 08:10 79 88 L 11/30/21 08:08 85 87 L 11/30/21 08:04 78 89 L 11/30/21 08:03 96 H 88 L 11/30/21 08:01 85 134/92 11/30/21 07:59 88 89 L 11/30/21 07:58 85 92 11/30/21 07:53 95 H 97 11/30/21 07:51 91 H 90 11/30/21 07:48 101 H 91 11/30/21 07:45 97 H 143/86 H 11/30/21 07:43 96 H 93 11/30/21 07:40 94 H 91 11/30/21 07:38 98 H 92 11/30/21 07:33 93 H 93 11/30/21 07:32 92 H 136/92 89 L 11/30/21 07:30 18 11/30/21 07:28 89 94 11/30/21 07:23 95 H 97 11/30/21 07:19 92 H 90 11/30/21 07:18 93 H 95 11/30/21 07:16 97 H 159/103 H 11/30/21 07:15 36.9 C 20 11/30/21 07:13 95 H 92 11/30/21 07:08 96 H 97 11/30/21 07:03 100 H 95 11/30/21 07:02 104 H 142/98 H 11/30/21 06:58 94 H 91 11/30/21 06:55 99 H 90 11/30/21 06:53 96 H 94 11/30/21 06:49 100 H 154/102 H 11/30/21 06:48 96 H 96 11/30/21 06:43 95 H 94 11/30/21 06:40 90 90 11/30/21 06:38 94 H 90 11/30/21 06:34 100 H 91 11/30/21 06:33 100 H 94 11/30/21 06:32 90 139/82 11/30/21 06:28 98 H 94 11/30/21 06:23 104 H 95 11/30/21 06:18 101 H 95 11/30/21 06:16 97 H 130/81 11/30/21 06:13 92 H 94 11/30/21 06:08 99 H 133/92 94 11/30/21 06:05 22 11/30/21 06:03 100 H 95 11/30/21 05:58 106 H 96 11/30/21 05:53 103 H 96 11/30/21 05:48 99 H 96 11/30/21 05:45 98 H 141/97 H 11/30/21 05:43 94 H 95 11/30/21 05:38 96 H 95 11/30/21 05:33 90 94 11/30/21 05:30 106 H 144/92 H 11/30/21 05:29 37.3 C 20 11/30/21 05:28 110 H 96 11/30/21 05:23 89 93 11/30/21 05:18 99 H 94 11/30/21 05:15 93 H 146/89 H 11/30/21 05:13 89 93 11/30/21 05:08 89 93 11/30/21 05:03 90 93 11/30/21 05:00 90 20 138/80 11/30/21 04:58 91 H 93 11/30/21 04:53 89 94 11/30/21 04:50 20 11/30/21 04:48 101 H 133/81 96 11/30/21 04:43 90 94 11/30/21 04:38 87 94 11/30/21 04:35 20 11/30/21 04:33 95 H 95 11/30/21 04:31 97 H 132/83 11/30/21 04:28 90 92 11/30/21 04:23 102 H 95 11/30/21 04:18 101 H 97 11/30/21 04:17 87 124/71 11/30/21 04:15 20 11/30/21 04:13 87 92 11/30/21 04:08 96 H 95 11/30/21 04:03 98 H 97 11/30/21 04:00 96 H 20 134/87 11/30/21 03:58 99 H 97 11/30/21 03:53 97 H 94 11/30/21 03:48 96 H 96 11/30/21 03:45 95 H 20 148/88 H 11/30/21 03:43 108 H 97 11/30/21 03:41 99 H 155/90 H 11/30/21 03:38 91 H 93 11/30/21 03:33 96 H 97 11/30/21 03:32 99 H 171/103 H 11/30/21 03:30 37.0 C 20 11/30/21 03:28 100 H 96 11/30/21 03:23 99 H 96 11/30/21 03:18 94 H 95 11/30/21 03:17 96 H 162/101 H 11/30/21 03:13 99 H 97 11/30/21 03:08 96 H 96 11/30/21 03:03 96 H 97 11/30/21 03:01 98 H 162/104 H 11/30/21 02:58 103 H 97 11/30/21 02:53 91 H 96 11/30/21 02:48 99 H 95 11/30/21 02:47 100 H 169/99 H 11/30/21 02:43 94 H 94 11/30/21 02:38 94 H 94 11/30/21 02:33 92 H 95 11/30/21 02:31 94 H 156/94 H 11/30/21 02:30 18 11/30/21 02:28 95 H 95 11/30/21 02:26 97 H 160/90 H 11/30/21 02:23 109 H 97 11/30/21 02:18 100 H 95 11/30/21 02:15 98 H 135/71 11/30/21 02:13 97 H 94 11/30/21 02:08 91 H 92 11/30/21 02:03 107 H 94 11/30/21 02:02 98 H 91 11/30/21 02:00 94 H 20 130/72 11/30/21 01:58 96 H 93 11/30/21 01:53 104 H 94 11/30/21 01:48 93 H 92 11/30/21 01:45 95 H 20 130/74 11/30/21 01:43 98 H 94 11/30/21 01:42 97 H 91 11/30/21 01:38 93 H 92 11/30/21 01:33 97 H 94 11/30/21 01:31 95 H 136/75 11/30/21 01:30 18 11/30/21 01:28 99 H 93 11/30/21 01:23 95 H 94 11/30/21 01:18 37.2 C 101 H 18 94 11/30/21 01:17 96 H 135/80 11/30/21 01:13 100 H 94 11/30/21 01:09 18 11/30/21 01:08 98 H 142/77 H 94 11/30/21 01:03 91 H 94 11/30/21 00:58 91 H 93 11/30/21 00:53 95 H 93 11/30/21 00:48 94 H 94 11/30/21 00:43 109 H 136/82 96 11/30/21 00:38 96 H 132/72 92 11/30/21 00:34 96 H 133/72 11/30/21 00:33 93 H 93 11/30/21 00:28 102 H 133/74 95 11/30/21 00:23 93 H 93 11/30/21 00:22 96 H 138/79 11/30/21 00:18 100 H 95 11/30/21 00:17 100 H 132/78 11/30/21 00:15 18 11/30/21 00:13 91 H 93 11/30/21 00:08 89 94 11/30/21 00:03 87 95 11/30/21 00:00 18 11/29/21 23:58 97 H 95 11/29/21 23:53 92 H 94 11/29/21 23:50 93 H 130/75 11/29/21 23:48 90 94 11/29/21 23:45 93 H 20 132/74 11/29/21 23:43 89 94 11/29/21 23:42 91 H 133/77 11/29/21 23:38 92 H 94 11/29/21 23:35 97 H 139/82 11/29/21 23:33 93 H 93 11/29/21 23:30 93 H 20 133/79 11/29/21 23:28 100 H 95 11/29/21 23:25 91 H 148/89 H 02/06/22 23:23 96 H 95 11/29/21 23:21 89 145/91 H 11/29/21 23:18 96 H 93 11/29/21 23:15 37.0 C 96 H 18 149/90 H 11/29/21 23:13 93 H 93 11/29/21 23:10 100 H 155/95 H 11/29/21 23:08 99 H 95 11/29/21 23:06 90 23 153/96 H 11/29/21 23:03 94 H 93 11/29/21 22:58 96 H 158/94 H 94 11/29/21 22:55 103 H 89 L 11/29/21 22:54 109 H 166/102 H 11/29/21 22:53 119 H 96 11/29/21 22:51 120 H 161/106 H 11/29/21 22:48 107 H 168/108 H 95 11/29/21 22:45 112 H 177/113 H 11/29/21 22:43 107 H 97 11/29/21 22:42 113 H 176/112 H 11/29/21 22:39 110 H 176/115 H 11/29/21 22:38 107 H 94 11/29/21 22:37 115 H 173/111 H 11/29/21 22:33 101 H 165/97 H 96 11/29/21 22:30 111 H 22 169/103 H 11/29/21 22:28 104 H 162/103 H 96 11/29/21 22:25 107 H 177/106 H 11/29/21 22:23 102 H 97 11/29/21 22:21 102 H 169/100 H 11/29/21 22:20 96 11/29/21 22:18 102 H 169/105 H 96 11/29/21 22:16 102 H 169/110 H 11/29/21 22:13 104 H 96 11/29/21 22:12 104 H 174/114 H 11/29/21 22:11 104 H 170/111 H 11/29/21 22:10 103 H 166/111 H 11/29/21 22:08 104 H 96 11/29/21 22:06 100 H 159/96 H 11/29/21 22:05 22 11/29/21 22:04 108 H 158/94 H 11/29/21 22:03 112 H 95 11/29/21 22:00 93 H 164/95 H 11/29/21 21:58 99 H 158/88 H 96 11/29/21 21:54 94 H 164/94 H 11/29/21 21:53 97 H 97 11/29/21 21:52 95 H 171/97 H 11/29/21 21:49 96 H 160/90 H 11/29/21 21:48 98 H 96 11/29/21 21:46 96 H 164/91 H 11/29/21 21:43 94 H 158/91 H 96 11/29/21 21:40 101 H 158/90 H 11/29/21 21:38 100 H 95 11/29/21 21:37 91 H 155/92 H 11/29/21 21:35 22 11/29/21 21:34 97 H 158/95 H 11/29/21 21:33 93 H 94 11/29/21 21:31 105 H 152/94 H 11/29/21 21:28 95 H 154/85 H 93 11/29/21 21:25 86 151/85 H 11/29/21 21:23 92 H 93 11/29/21 21:22 87 152/87 H 11/29/21 21:19 86 150/85 H 11/29/21 21:18 90 93 11/29/21 21:16 85 149/81 H 11/29/21 21:13 82 145/81 H 93 11/29/21 21:10 94 H 138/81 11/29/21 21:08 99 H 96 11/29/21 21:07 85 150/80 H 11/29/21 21:05 37.2 C 22 11/29/21 21:04 82 144/78 H 11/29/21 21:03 85 93 11/29/21 21:01 87 144/76 H 11/29/21 20:58 79 146/81 H 92 11/29/21 20:57 81 90 11/29/21 20:55 104 H 131/76 11/29/21 20:53 99 H 98 11/29/21 20:52 90 147/84 H 11/29/21 20:49 86 142/80 H 11/29/21 20:48 90 93 11/29/21 20:46 78 143/82 H 11/29/21 20:45 82 89 L 02/06/22 20:43 88 131/70 93 11/29/21 20:40 88 135/74 11/29/21 20:39 83 91 11/29/21 20:38 82 91 11/29/21 20:36 94 H 131/67 11/29/21 20:35 20 11/29/21 20:34 85 130/65 89 L 11/29/21 20:33 88 91 11/29/21 20:31 82 124/66 11/29/21 20:29 90 90 11/29/21 20:28 81 22 117/68 95 11/29/21 20:25 91 H 133/65 11/29/21 20:23 94 H 94 11/29/21 20:22 93 H 129/68 90 11/29/21 20:19 97 H 121/65 11/29/21 20:18 103 H 94 11/29/21 20:16 107 H 116/65 11/29/21 20:15 22 11/29/21 20:13 110 H 143/85 H 95 11/29/21 20:10 105 H 153/90 H 11/29/21 20:08 98 H 165/92 H 96 11/29/21 20:07 110 H 134/79 11/29/21 20:05 103 H 135/77 11/29/21 20:04 103 H 136/72 11/29/21 20:03 107 H 97 11/29/21 20:01 116 H 161/97 H 11/29/21 19:58 131 H 176/103 H 96 11/29/21 19:53 122 H 97 11/29/21 19:52 115 H 161/99 H 11/29/21 19:49 123 H 163/94 H 11/29/21 19:48 118 H 97 11/29/21 19:46 115 H 155/89 H 11/29/21 19:43 105 H 158/95 H 96 11/29/21 19:40 111 H 168/95 H 11/29/21 19:38 120 H 97 11/29/21 19:37 125 H 156/94 H 11/29/21 19:34 122 H 161/100 H 11/29/21 19:33 121 H 97 11/29/21 19:31 106 H 155/97 H 11/29/21 19:28 114 H 163/101 H 97 11/29/21 19:25 102 H 158/94 H 11/29/21 19:23 103 H 97 11/29/21 19:22 105 H 154/98 H 11/29/21 19:19 109 H 164/99 H 11/29/21 19:18 103 H 96 11/29/21 19:16 97 H 157/88 H 11/29/21 19:15 20 11/29/21 19:13 99 H 146/86 H 96 11/29/21 19:10 97 H 151/84 H 11/29/21 19:08 100 H 96 11/29/21 19:07 104 H 158/88 H 11/29/21 19:04 105 H 157/89 H 11/29/21 19:03 108 H 96 11/29/21 19:00 36.9 C 11/29/21 18:58 103 H 169/96 H 96 11/29/21 18:55 172/93 H 11/29/21 18:53 100 H 95 11/29/21 18:52 99 H 145/82 H 11/29/21 18:49 97 H 161/89 H 11/29/21 18:48 98 H 96 11/29/21 18:46 96 H 156/85 H 11/29/21 18:43 92 H 146/82 H 95 11/29/21 18:40 98 H 152/91 H 11/29/21 18:38 93 H 93 11/29/21 18:37 93 H 150/78 H 11/29/21 18:34 96 H 152/81 H 11/29/21 18:33 94 H 94 11/29/21 18:31 95 H 149/78 H 11/29/21 18:30 18 11/29/21 18:28 104 H 146/69 H 96 11/29/21 18:25 98 H 145/75 H 11/29/21 18:23 99 H 97 11/29/21 18:22 93 H 146/78 H 11/29/21 18:19 102 H 148/81 H 11/29/21 18:18 104 H 96 11/29/21 18:15 96 H 152/94 H 11/29/21 18:13 103 H 97 11/29/21 18:08 89 95 11/29/21 18:03 103 H 95 11/29/21 18:00 18 11/29/21 17:58 89 95 11/29/21 17:53 85 95 11/29/21 17:48 89 96 11/29/21 17:44 86 156/86 H 11/29/21 17:43 88 97 11/29/21 17:38 83 95 11/29/21 17:33 96 H 95 11/29/21 17:30 18 11/29/21 17:28 87 93 11/29/21 17:23 85 96 11/29/21 17:18 88 96 11/29/21 17:14 77 152/94 H 11/29/21 17:13 86 94 11/29/21 17:11 85 162/94 H 11/29/21 17:08 83 93 11/29/21 17:06 82 170/96 H 11/29/21 17:03 82 94 11/29/21 17:00 78 18 151/89 H 11/29/21 16:58 86 95 11/29/21 16:55 78 149/86 H 11/29/21 16:53 82 94 11/29/21 16:50 79 156/92 H 11/29/21 16:48 76 93 11/29/21 16:45 80 143/91 H 11/29/21 16:43 82 95 11/29/21 16:40 79 141/91 H 11/29/21 16:38 79 95 11/29/21 16:35 86 149/93 H 11/29/21 16:33 81 95 11/29/21 16:31 76 144/88 H 11/29/21 16:28 82 93 11/29/21 16:26 78 93 11/29/21 16:25 86 140/88 11/29/21 16:23 80 95 11/29/21 16:22 78 134/81 11/29/21 16:20 83 93 11/29/21 16:18 87 97 11/29/21 16:17 93 H 136/91 11/29/21 16:15 85 93 11/29/21 16:13 94 H 96 11/29/21 16:11 91 H 141/92 H 11/29/21 16:08 106 H 97 11/29/21 16:03 120 H 97 11/29/21 16:00 20 11/29/21 15:58 128 H 97 11/29/21 15:54 113 H 166/99 H 11/29/21 15:53 108 H 97 11/29/21 15:51 126 H 186/93 H 11/29/21 15:48 118 H 97 11/29/21 15:47 92 H 94 11/29/21 15:43 88 96 11/29/21 15:40 97 H 182/113 H 11/29/21 15:38 109 H 98 11/29/21 15:33 128 H 98 11/29/21 15:30 20 11/29/21 15:28 83 95 11/29/21 15:23 91 H 96 11/29/21 15:21 96 H 92 11/29/21 15:18 108 H 98 11/29/21 15:13 93 H 98 11/29/21 15:11 83 170/105 H 11/29/21 15:08 81 97 11/29/21 15:03 94 H 96 11/29/21 14:58 88 97 11/29/21 14:53 110 H 98 11/29/21 14:48 113 H 97 11/29/21 14:46 104 H 84 L 11/29/21 14:43 84 97 11/29/21 14:40 37.0 C 85 18 160/94 H 11/29/21 14:38 77 95 11/29/21 14:33 77 95 11/29/21 14:29 81 94 11/29/21 14:28 72 95 11/29/21 14:23 82 95 11/29/21 14:18 86 96 Pain Intensity Abdomen: Pain Intensity: 3 Transfer of Care Handoff Completed per policy Notes Mental Status: alert / awake / arousable Patient Amnestic to Procedure: Yes Nausea / Vomiting: adequately controlled Pain: adequately controlled Airway Patency, RR, SpO2: stable & adequate BP & HR: stable & adequate Hydration State: stable & adequate Neuraxial Anesthesia: was administered and sensory block is resolving Anesthetic Complications: no major complications apparent and Pt Satisfied with anesthetic care
[2021-11-30] MEDS: DOCUSATE SODIUM 100 MG CAP PO SCH (22:12)
[2021-12-01] MEDS: MAGNESIUM SULFATE / WTR 40 GM/1,000 ML BAG IV SCH (02:32)
[2021-12-01] MEDS: OXYTOCIN 20 UNITS in LACTATED RINGER'S 1,000 ML IV SCH (02:53)
[2021-12-01] MEDS ORDERED: KETOROLAC 30 MG/ML VIAL IV PRN (05:55)
[2021-12-01] MEDS ORDERED: PROMETHAZINE HCL 25 MG in SODIUM CHLORIDE 0.9% 50 ML IV PRN (05:55)
[2021-12-01] MEDS ORDERED: diphenhydrAMINE Capsule 25 MG CAP PO PRN (05:55)
[2021-12-01] MEDS ORDERED: ONDANSETRON INJ 2 MG/ML 2 ML VIAL IV PRN (05:55)
[2021-12-01] MEDS ORDERED: diphenhydrAMINE 50 MG/ML VIAL IV PRN (05:55)
[2021-12-01] MEDS ORDERED: MEPERIDINE HCL 50 MG/ML CARP IV PRN (05:55)
[2021-12-01] MEDS ORDERED: DC INTRASPINAL MORPHINE SCH (05:55)
[2021-12-01 06:45] LABS: Basophils # (auto) 0.02 K/uL (0-0.2); Basophils % (auto) 0.1 %; Hematocrit (blood only) 28.3 % (37-47); Hemoglobin 9.7 g/dL (12.0-16.0); Immature Granulocytes # (auto) 0.12 K/uL (0.00-0.02); Immature Granulocytes % (auto) 0.6 %; Lymphocytes # (auto) 1.93 K/uL (1.2-3.4); Lymphocytes % (auto) 9.2 %; Mean Corpuscular Hemoglobin 31.7 pg (25-34); Mean Corpuscular Hgb Conc 34.3 g/dL (32-36); Mean Corpuscular Volume 92.5 fL (80-100); Mean Platelet Volume 11.9 fL (7.4-10.4); Monocytes # (auto) 2.08 K/uL (0.11-0.59); Neutrophils # (auto) 16.75 K/uL (1.4-6.5); Neutrophils % (auto) 80.1 %; Platelet Count 197 K/uL (130-400); RDW Coefficient of Variation 13.3 % (11.5-14.5); RDW Standard Deviation 44.5 fL (36.4-46.3); Red Blood Count 3.06 M/uL (4.2-5.4)
--- NOTE | 2021-12-01 07:31 | Obstetrical Progress Note ---
Date of Service <Nila Brennan - Last Filed: 12/01/21 07:51> December 01, 2021 Assessment & Plan <Nila BrennanDO - Last Filed: 12/01/21 07:51> (1) Encounter for care and examination after delivery: (2) Status post section: (3) Preeclampsia: 31 yo post op day1 from c/s with pre-eclampsia on magnesium, doing well. -Continue routine post care. -vital signs reviewed and WNL (Tmax 36.7) -Blood Type A+, GBS+, Rubella immune -Encourage ambulation, monitor and control pain with Motrin, tylenol PRN, resume regular diet, monitor lochia -encourage breast feeding -hemoglobin 9.7 -will remove whittaker and encourage ambulation later today Day #:: 1 <Abelardo Fajardo MD - Last Filed: 12/01/21 09:23> (1) Encounter for care and examination after delivery: (2) Status post section: (3) Preeclampsia: Subjective <Nilalyle Brennan DO - Last Filed: 12/01/21 07:51> Ambulation: limited ambulation (has not tried yet) Voiding: whittaker catheter in place Passing Gas:: Yes Diet Tolerance:: clear liquids Lochia:: Moderate Feeding Type:: breast feeding Current Pain Level(1-10): 2 Review of Systems Dizziness Denies fever, chills, sweats Denies shortness of breath, difficulty breathing, chest pain, palpitations, chest pressure. Denies breast pain. Denies dysuria. Denies headache or changes in vision. Physical Exam <Nilalyle Brennan DO - Last Filed: 12/01/21 07:51> General: Alert, oriented. No acute distress. Cardiac: Regular rate and rhythm, no murmurs/rubs/gallops. Respiratory: Clear to auscultation bilaterally a/p, no wheezes/rales/rhonchi. No increased work of breathing. Symmetrical chest rise. No respiratory distress. Abdomen: Soft, nontender, nondistended. Bowel sounds present. Uterus: Uterine fundus firm, palpable 2 cm below umbilicus. Surgical scar clean and healing well. Lower Extremities: No lower extremity edema or swelling. No deep calf pain. Gloria's negative bilaterally. Results & Data ([facility]) <Nila Mika, DO - Last Filed: 12/01/21 07:51> Vital Signs (Past 12 Hours) Vital Signs Pulse Resp BP Pulse Ox 12/01/21 07:27 80 95 12/01/21 07:22 81 92 12/01/21 07:17 77 91 12/01/21 07:13 76 88 L 12/01/21 07:12 74 91 12/01/21 07:07 80 91 12/01/21 07:02 82 157/100 H 91 12/01/21 06:57 83 91 12/01/21 06:52 90 90 12/01/21 06:47 85 89 L 12/01/21 06:42 75 91 12/01/21 06:37 73 92 12/01/21 06:32 82 93 12/01/21 06:27 81 92 12/01/21 06:22 81 90 12/01/21 06:20 82 89 L 12/01/21 06:17 81 95 12/01/21 06:12 72 95 12/01/21 06:07 79 94 12/01/21 06:06 78 157/83 H 12/01/21 06:05 80 169/91 H 12/01/21 06:02 82 94 12/01/21 06:00 18 94 12/01/21 05:57 87 94 12/01/21 05:52 71 95 12/01/21 05:47 67 94 12/01/21 05:42 71 94 12/01/21 05:37 67 94 12/01/21 05:32 68 95 12/01/21 05:27 79 95 12/01/21 05:22 69 96 12/01/21 05:17 70 94 12/01/21 05:12 68 95 12/01/21 05:07 69 94 12/01/21 05:02 72 94 12/01/21 05:01 73 133/73 12/01/21 05:00 18 94 12/01/21 04:57 75 95 12/01/21 04:52 80 94 12/01/21 04:47 81 94 12/01/21 04:42 78 95 12/01/21 04:37 73 95 12/01/21 04:32 71 95 12/01/21 04:27 75 95 12/01/21 04:22 78 95 12/01/21 04:17 72 94 12/01/21 04:12 72 95 12/01/21 04:07 72 95 12/01/21 04:02 73 95 12/01/21 04:01 73 139/81 12/01/21 04:00 16 95 12/01/21 03:57 71 95 12/01/21 03:52 69 95 12/01/21 03:47 68 95 12/01/21 03:42 71 95 12/01/21 03:37 72 95 12/01/21 03:32 71 95 12/01/21 03:27 67 94 12/01/21 03:25 16 95 12/01/21 03:22 80 95 12/01/21 03:17 77 96 12/01/21 03:12 86 137/78 92 12/01/21 03:06 77 90 12/01/21 03:02 79 89 L 12/01/21 03:01 80 91 12/01/21 03:00 18 12/01/21 02:56 81 90 12/01/21 02:55 80 88 L 12/01/21 02:51 76 92 12/01/21 02:48 88 86 L 12/01/21 02:46 83 93 12/01/21 02:41 75 91 12/01/21 02:40 74 88 L 12/01/21 02:36 80 93 12/01/21 02:31 84 92 12/01/21 02:30 81 89 L 12/01/21 02:26 78 91 12/01/21 02:25 86 89 L 12/01/21 02:21 98 H 91 12/01/21 02:16 87 93 12/01/21 02:11 92 H 93 12/01/21 02:06 97 H 93 12/01/21 02:01 78 142/80 H 93 12/01/21 02:00 16 93 12/01/21 01:56 78 93 12/01/21 01:51 78 93 12/01/21 01:46 80 92 12/01/21 01:41 79 91 12/01/21 01:36 76 93 12/01/21 01:31 90 93 12/01/21 01:26 98 H 94 12/01/21 01:21 82 93 12/01/21 01:16 81 93 12/01/21 01:11 79 93 12/01/21 01:06 78 93 12/01/21 01:01 79 149/82 H 93 12/01/21 01:00 18 93 12/01/21 00:56 80 93 12/01/21 00:51 80 93 12/01/21 00:46 82 94 12/01/21 00:41 80 94 12/01/21 00:36 81 93 12/01/21 00:31 84 94 12/01/21 00:26 76 93 12/01/21 00:21 94 H 91 12/01/21 00:19 92 H 87 L 12/01/21 00:16 75 88 L 12/01/21 00:13 81 88 L 12/01/21 00:11 80 92 12/01/21 00:10 82 133/77 12/01/21 00:06 78 89 L 12/01/21 00:04 80 89 L 12/01/21 00:01 90 91 12/01/21 00:00 18 91 11/30/21 23:59 91 H 88 L 11/30/21 23:56 86 91 11/30/21 23:51 90 92 11/30/21 23:44 77 93 11/30/21 23:39 86 92 11/30/21 23:36 89 89 L 11/30/21 23:34 90 90 11/30/21 23:30 92 H 89 L 11/30/21 23:29 96 H 91 11/30/21 23:24 82 97 11/30/21 23:19 81 97 11/30/21 23:14 83 97 11/30/21 23:09 81 97 11/30/21 23:04 81 96 11/30/21 23:01 92 H 139/77 11/30/21 23:00 18 96 11/30/21 22:59 91 H 88 L 11/30/21 22:54 89 89 L 11/30/21 22:49 82 90 11/30/21 22:44 84 91 11/30/21 22:41 87 89 L 11/30/21 22:39 82 90 11/30/21 22:34 83 90 11/30/21 22:29 86 91 11/30/21 22:24 83 89 L 11/30/21 22:19 82 91 11/30/21 22:14 84 91 11/30/21 22:09 82 91 11/30/21 22:04 83 91 11/30/21 22:01 78 143/80 H 11/30/21 22:00 16 91 11/30/21 21:59 84 91 11/30/21 21:57 81 89 L 11/30/21 21:54 81 91 11/30/21 21:49 80 91 11/30/21 21:46 83 89 L 11/30/21 21:44 82 91 11/30/21 21:39 82 91 11/30/21 21:34 81 92 11/30/21 21:29 77 90 11/30/21 21:28 73 89 L 11/30/21 21:24 82 93 11/30/21 21:19 74 97 11/30/21 21:14 75 97 11/30/21 21:09 77 97 11/30/21 21:04 71 97 11/30/21 21:01 77 158/92 H 11/30/21 21:00 18 97 11/30/21 20:59 75 98 11/30/21 20:54 85 97 11/30/21 20:49 82 98 11/30/21 20:44 85 98 11/30/21 20:39 75 97 11/30/21 20:34 77 96 11/30/21 20:29 77 97 11/30/21 20:24 78 98 11/30/21 20:19 84 98 11/30/21 20:17 75 137/79 11/30/21 20:14 72 97 11/30/21 20:09 78 99 11/30/21 20:04 77 97 11/30/21 20:00 18 98 11/30/21 19:59 77 98 11/30/21 19:54 84 98 11/30/21 19:49 76 97 11/30/21 19:44 76 97 11/30/21 19:39 75 97 11/30/21 19:34 70 98 <Abelardo Fajardo MD - Last Filed: 12/01/21 09:23> Co-Signing Physician Notes Patient was seen and evaluated and agree with the noted findings and plan. BPs have been labile but below treatment level at present. Denies PIH symptoms. Labs normal. O2 sat are in the high 80s low 90s on room air. Denies any breathing difficulty, Lungs clear, COVID negative. This is likely an effect of Mg. If persistent after D/c Mg will consider medicine consult. Resident Activity Tracking <Nila Brennan, DO - Last Filed: 12/01/21 07:51> Resident Involvement: Resident Care Provided Care Provided: Adult Hospital Medicine
[2021-12-01] MEDS: ACETAMINOPHEN 500 MG TAB PO PRN (08:35)
[2021-12-01] MEDS: PRENATAL VITAMIN 1 TAB PO SCH (09:10)
[2021-12-01] MEDS: FERROUS SULFATE 325 MG TAB PO SCH (09:11)
[2021-12-01] MEDS: IBUPROFEN 600 MG TAB PO PRN ×3 (12:33→23:53)
[2021-12-01] MEDS: SIMETHICONE 80 MG CHEW PO SCH ×3 (13:45→20:50)
[2021-12-01] MEDS: oxyCODONE/ACETAMINOPHEN 5mg/325mg TAB PO PRN ×3 (13:45→23:54)
[2021-12-01] MEDS ORDERED: bisacodyL 5 MG TABEC PO SCH (20:00)
[2021-12-01] MEDS: DOCUSATE SODIUM 100 MG CAP PO SCH (20:50)
[2021-12-02] MEDS: SIMETHICONE 80 MG CHEW PO SCH ×5 (02:01→20:11)
[2021-12-02] MEDS: DOCUSATE SODIUM 100 MG CAP PO SCH ×3 (02:01→20:11)
--- NOTE | 2021-12-02 06:14 | Obstetrical Progress Note ---
Date of Service <Nilalyle Brennan DO - Last Filed: 12/02/21 06:41> December 02, 2021 Assessment & Plan <Nilalyle Brennan DO - Last Filed: 12/02/21 06:41> (1) Encounter for care and examination after delivery: (2) Status post section: (3) Preeclampsia: 31 yo post op day2 from c/s with pre-eclampsia on magnesium, doing well. -Continue routine post care. -vital signs reviewed and WNL (Tmax 37.2) -Blood Type A+, GBS+, Rubella immune -Encourage ambulation, monitor and control pain with Motrin, tylenol PRN, resume regular diet, monitor lochia -encourage breast feeding -hemoglobin 9.7 Day #:: 2 <Americo Parks MD, FACOG - Last Filed: 12/02/21 07:26> (1) Encounter for care and examination after delivery: (2) Status post section: (3) Preeclampsia: Subjective <Nila Brennan DO - Last Filed: 12/02/21 06:41> Ambulation: ambulating normally Voiding: no voiding problems Passing Gas:: Yes Diet Tolerance:: regular diet Lochia:: Small Feeding Type:: breast feeding Current Pain Level(1-10): 1 Review of Systems Denies fever, chills, sweats Denies shortness of breath, difficulty breathing, chest pain, palpitations, chest pressure. Denies breast pain. Denies dysuria. Denies headache or changes in vision. Physical Exam <DO Victorino Araiza Last Filed: 12/02/21 06:41> General: Alert, oriented. No acute distress. Cardiac: Regular rate and rhythm, no murmurs/rubs/gallops. Respiratory: Clear to auscultation bilaterally a/p, no wheezes/rales/rhonchi. No increased work of breathing. Symmetrical chest rise. No respiratory distress. Abdomen: Soft, nontender, nondistended. Bowel sounds present. Uterus: Uterine fundus firm, palpable 2 cm below umbilicus. Surgical scar clean and healing well. Lower Extremities: No lower extremity edema or swelling. No deep calf pain. Gloria's negative bilaterally. Results & Data ([facility]) <Nila Brennan DO - Last Filed: 12/02/21 06:41> Vital Signs (Past 12 Hours) Vital Signs Temp Pulse Resp BP Pulse Ox 12/02/21 03:05 70 154/89 H 91 12/01/21 23:40 37.2 C 86 20 152/87 H 95 12/01/21 18:30 37.1 C 74 18 95 <Americo Parks MD, FACOG - Last Filed: 12/02/21 07:26> Co-Signing Physician Notes Resident Physician Supervision Note: I was present with Dr. Brennan during the history and exam. I discussed the case with the resident and agree with the findings and plan as documented in the note. Any exceptions or clarifications are listed here: [None] Documented By: Americo Parks MD, FACOG Resident Activity Tracking <Nila Brennan DO - Last Filed: 12/02/21 06:41> Resident Involvement: Resident Care Provided Care Provided: Adult Hospital Medicine
[2021-12-02 07:07] LABS: Hematocrit (blood only) 25.8 % (37-47); Hemoglobin 8.6 g/dL (12.0-16.0)
[2021-12-02] MEDS: LABETALOL HCL 100 MG TAB PO SCH ×3 (07:56→20:11)
[2021-12-02] MEDS: IBUPROFEN 600 MG TAB PO PRN ×3 (07:57→17:31)
[2021-12-02] MEDS: PRENATAL VITAMIN 1 TAB PO SCH (07:58)
[2021-12-02] MEDS: oxyCODONE/ACETAMINOPHEN 5mg/325mg TAB PO PRN ×3 (07:58→17:30)
[2021-12-02] MEDS: FERROUS SULFATE 325 MG TAB PO SCH (07:59)
[2021-12-02] MEDS ORDERED: bisacodyL 10 MG SUPP PR PRN (12:31)
[2021-12-03] MEDS: oxyCODONE/ACETAMINOPHEN 5mg/325mg TAB PO PRN ×3 (00:34→13:50)
[2021-12-03] MEDS: IBUPROFEN 600 MG TAB PO PRN ×3 (00:34→13:50)
[2021-12-03] MEDS: LABETALOL HCL 100 MG TAB PO SCH ×3 (04:08→12:26)
--- NOTE | 2021-12-03 05:59 | Obstetrical Progress Note ---
Date of Service <Nila Brennan DO - Last Filed: 12/03/21 06:24> December 03, 2021 Assessment & Plan <Nila Brennan DO - Last Filed: 12/03/21 06:24> (1) Encounter for care and examination after delivery: (2) Status post section: (3) Preeclampsia: 31 yo post op day3 from c/s with pre-eclampsia on magnesium, doing well. -Continue routine post care. -vital signs reviewed and WNL (Tmax 37.2), BP occasionally elevated -Blood Type A+, GBS+, Rubella immune -Encourage ambulation, monitor and control pain with Motrin, tylenol PRN, resume regular diet, monitor lochia -encourage breast feeding -hemoglobin 8.6 -patient comfortable going home Day #:: 3 <Kristie Gilliland MD - Last Filed: 12/03/21 07:44> (1) Encounter for care and examination after delivery: (2) Status post section: (3) Preeclampsia: Subjective <Nila Brennan DO - Last Filed: 12/03/21 06:24> Ambulation: ambulating normally Voiding: no voiding problems Passing Gas:: Yes Diet Tolerance:: regular diet Lochia:: Small Feeding Type:: breast feeding Current Pain Level(1-10): 0 Review of Systems Denies fever, chills, sweats Denies shortness of breath, difficulty breathing, chest pain, palpitations, chest pressure. Denies breast pain. Denies dysuria. Denies headache or changes in vision. Physical Exam <DO Victorino Araiza Last Filed: 12/03/21 06:24> General: Alert, oriented. No acute distress. Cardiac: Regular rate and rhythm, no murmurs/rubs/gallops. Respiratory: Clear to auscultation bilaterally a/p, no wheezes/rales/rhonchi. No increased work of breathing. Symmetrical chest rise. No respiratory distress. Abdomen: Soft, nontender, nondistended. Bowel sounds present. Uterus: Uterine fundus firm, palpable 2 cm below umbilicus. Surgical scar clean and healing well. Lower Extremities: No lower extremity edema or swelling. No deep calf pain. Gloria's negative bilaterally. Results & Data ([facility]) <Nila Brennan DO - Last Filed: 12/03/21 06:24> Vital Signs (Past 12 Hours) Vital Signs Temp Pulse Resp BP Pulse Ox 12/03/21 03:36 36.8 C 76 18 152/83 H 97 12/02/21 23:30 36.7 C 67 18 153/83 H 97 12/02/21 20:07 36.7 C 74 18 143/89 H 95 <Kristie Gilliland MD - Last Filed: 12/03/21 07:44> Co-Signing Physician Notes Resident Physician Supervision Note: I interviewed and examined the patient. Discussed with Dr. Brennan and agree with findings and plan as documented in the note. Any exceptions or clarifications are listed here: POD3 s/p pLTCS for arrest of descent, c/b PET w/ SF s/p mag. Started on labetalol 100mg TID, bps yesterday during the day were good, overnight slightly higher but I think related to timing of when labetalol was given. Noted one transient episode of spots that went away, no other s/s pet. Exam benign, incision c/d/i. Will monitor BPs this AM, if stable then will dc home and get 1 wk BP check Documented By: Kristie Gilliland MD Resident Activity Tracking <Nila Brennan DO - Last Filed: 12/03/21 06:24> Resident Involvement: Resident Care Provided Care Provided: Adult Hospital Medicine
[2021-12-03] MEDS: PRENATAL VITAMIN 1 TAB PO SCH (08:31)
[2021-12-03] MEDS: FERROUS SULFATE 325 MG TAB PO SCH (08:31)
[2021-12-03] MEDS: SIMETHICONE 80 MG CHEW PO SCH ×2 (08:31→13:45)
[2021-12-03] MEDS: DOCUSATE SODIUM 100 MG CAP PO SCH (08:31)
--- NOTE | 2021-12-04 13:15 | Discharge Summary (DS) ---
DATE OF ADMISSION: 11/29/2021 DATE OF DISCHARGE: 12/03/2021 PROCEDURES: 1. Magnesium sulfate prophylaxis. 2. Induction of labor. 3. Primary low transverse section. HISTORY: The patient is a 31-year-old 1, para 0, at 37 and 5/7 weeks who presents to labor a nd delivery after rupture of membranes for clear fluid in the morning at her home. She was also cont racting. She noted good movement, no vaginal bleeding. She reports headaches in the morning f or the past few days and no additional symptoms. For the rest of the patient's detailed history and physical, please see her history and physical. ASSESSMENT: This is a 31-year-old 1, para 0, at 37 and 5/7 weeks. She is grossly ruptured. She had some elevated blood pressures, so preeclampsia labs were ordered. HOSPITAL COURSE: The patient was admitted. She had preeclampsia labs ordered, which were all normal , but her pressures reached a severe level and so she needed p.o. nifedipine and then subsequently IV labetalol once she received an IV. She was started on magnesium sulfate prophylaxis for preeclampsi a with severe features and her blood pressures. Urine protein-creatinine ratio was 0.8. Blood pressu re significantly improved with nifedipine and IV labetalol. She progressed under observation to 6, 1 00, -1. Her epidural was redosed multiple times and she had another epidural placed during the cours e of her labor because it just did not work well, it worked well for about 2 hours and then she neede d a reevaluation. After a while, her contractions spaced out and Pitocin needed to be added when she was still 6, 100, -1. She progressed very, very slowly and at 6:51 in the morning, she was in anterior lip, 100% and + 1 station. Eventually, she became complete, complete and +1 and she started pushing after reducing the cervical lip. She pushed with good effort, but over the course of time, the only thing that prog ressed down in the pelvis was the large amount of caput that she had. She pushed for almost 2 hours and had no descent of the head and significant increase in the caput. I discussed this with the patient and thought that this baby was not going to fit out of the pelvis a nd recommended that she proceed with section. She consented to this. Her epidural was dose d and was very good for her . She underwent a primary low transverse section witho ut difficulty to deliver a viable female wedged into the pelvis in OA position. Normal tubes and ovaries were noted bilaterally. There was a bleeding vessel on the posterior wall of the uterus that was sutured. On putting the Manley catheter into the bladder, the urine was quite concentrated, b lood-tinged and particulate. This did clear up eventually with IV hydration. The patient's postoperative course, she remained on magnesium sulfate prophylaxis for approximately 2 4 hours where she was transferred to the floor. She did well there. She tolerated a regular diet, am bulated without difficulty, voided after the removal of her Manley catheter and her diet was advanced. Her discharge hemoglobin was 8.6, hematocrit 25.8. She was discharged home on postoperative day #3 . She will return in short-term for blood pressure monitoring in the office. Job ID: [id number]
== END 2021-12-03 16:20 | disposition home or self-care (01) | DRG 788 ==
LOC: OPB 08:29 → 4S1 08:30 → 4S2 12-01 12:32
DX: Z3A.37 37 weeks gestation of pregnancy; O65.8 Obstructed labor due to other maternal pelvic abnormalities; O99.820 Streptococcus B carrier state complicating pregnancy; Z88.1 Allergy status to other antibiotic agents; O14.94 Unspecified pre-eclampsia, complicating childbirth; O32.4XX0 Maternal care for high head at term, not applicable or unspecified; Z37.0 Single live birth; Z86.16 Personal history of COVID-19

== ENCOUNTER 2023-05-27 21:21 | Inpatient (IN) ==
[2023-05-27] MEDS ORDERED: LACTATED RINGER'S 1,000 ML IV SCH (22:00)
[2023-05-27] MEDS ORDERED: CITRIC ACID/SODIUM CITRATE 15 ML UDC PO STA (22:17)
--- NOTE | 2023-05-27 22:32 | History & Physical Report ---
Date of Service May 27, 2023 Assessment & Plan (1) Supervision of normal intrauterine in multigravida: Plan: Patient is a 33-year-old multiparous female with a prior section for failure to progress now presents in labor at 38-6/7 weeks. We will proceed with repeat section at this time. Please see the orders for further directions. History of Present Illness Primary Care Provider: Li Sullivan DO Patient is a 33-year-old 2 para 1-0-0-1 female EDC of 06/04/2023 who presents at 38-6/7 weeks in active labor. She has had bloody show all day and contractions which have now become more consistent at every 5 to 7 minutes apart lasting a minute. Her last delivery was by section for failure to progress. She was scheduled for repeat section on 05/30/2023 because of short interpregnancy interval. has also been complication by several episodes of flank pain for which etiology could be intermittent cholecystitis as she has gallstones and sludge in her bladder. She has been treated at least once for pyelonephritis as well as a result of the flank pain. Also complicating the , was a pericardial effusion which was mildly elevated. Maternal- medicine consultation and ultrasound at [facility] was reassuring and felt the pericardial effusion was not a concern. GBS is negati ve. Her prior was also complicated by preeclampsia and she has been on low-dose aspirin during this as a result. Blood pressures so far this have been normal. Allergies Allergy/AdvReac Type Severity Reaction Status Date / Time cefaclor [From [facility]] Allergy Unknown Unknown Verified 05/25/23 12:43 Home Medications Medication Instructions Recorded Confirmed Type prenat.vits,iker,lee-[id number] 1 tab PO QAM 11/29/21 05/27/23 History aspirin 81 mg tablet,delayed 81 mg PO QAM 05/20/23 05/27/23 History release doxylamine succinate 25 mg tablet 25 mg PO HS PRN Sleep 05/20/23 05/27/23 History (Unisom (doxylamine)) omeprazole 40 mg capsule,delayed 40 mg PO HS 05/20/23 05/27/23 History release Patient History Medical History Anesthesia complication epidural did not work for last Chlamydia 10 yrs ago Failure of descent in labor, delivered, current hospitalization Gallstones GERD (gastroesophageal reflux disease) Group beta Strep positive History of chicken pox History of COVID-11 May 2022 > not hospitalized Preeclampsia ASA 81mg for this Pyelonephritis affecting resolved Surgical History S/P LASIK surgery S/P tonsillectomy S/P wisdom tooth extraction Status post section x1 Family History Grandfather (Paternal) Myocardial infarction Mother Alcohol abuse Denies family history of Ovarian cancer Prostate cancer Breast cancer Colorectal cancer Social History Smoking Status: Never smoker Second Hand Exposure: No; Do You Dip or Chew Tobacco: No; Hx Alcohol Use: No Hx Substance Use: No Preferred Language: Swedish Communication Ability: Effective Visual Impairment: No Limitations Hearing Ability: Normal Carbonation Equipment Operator Required: No Beliefs That Will Affect Care: None marital status: marital status details: Shraddha Crespo (34) [phone]/ [phone] Current Living Situation: Spouse and Family Current Living Situation Comment: daughter 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[employer] Feels Safe at Home: Yes Physical Activity Frequency: 3-4 Times per Week Assistive Devices: None Review of Systems All systems reviewed & are unremarkable except as noted in HPI & below Physical Exam Constitutional: WD/WN, vitals as above Psychiatric: A+Ox3, euthymic affect Genitourinary: OB Exam Abdomen: + vertex and + regular contractions (Q6-7 minutes) Manual OB Exam: + cervical dilation 5 cm, + cervical effacement 80% and + station high OB Exam Monitor Tracing: + external FHT monitor used, + external uterine monitor used, + category I and + normal FHT variability Results & Data Vital Signs (Past 12 Hours) Vital Signs Pulse BP 05/27/23 21:36 86 126/82 Code Status & VTE Plan VTE Prophylaxis Plan VTE Prophylaxis will be ordered: No Coding Level of Care Code None Diagnoses Supervision of normal intrauterine in multigravida Z34.80
[2023-05-27] MEDS ORDERED: ONDANSETRON INJ 2 MG/ML 2 ML VIAL ONE (22:36)
[2023-05-27] MEDS ORDERED: OXYTOCIN 10 UNITS/ML VIAL ONE (22:36)
[2023-05-27] MEDS ORDERED: PHENYLEPHRINE 100MCG/ML 5ML SYR ONE (22:36)
[2023-05-27] MEDS ORDERED: fentaNYL citrate PF 100 MCG/2 ML VIAL ONE (22:37)
[2023-05-27] MEDS ORDERED: MoRPHine SULFATE PF 1 MG/ML 10 ML AMP/VIAL ONE (22:37)
--- NOTE | 2023-05-27 22:42 | Anesthesiology Consultation ---
Date of Service May 27, 2023 Assessment & Plan (1) Encounter for pre-operative examination: Chart Review Chart Review: Acceptable Risk for Surgery and Patient NOT seen in Pre Admission Testing Consults Requested none History Height/Weight Height: 5 ft 9 in Weight: 103.691 kg Allergies Allergy/AdvReac Type Severity Reaction Status Date / Time [facility] Allergy Unknown Unknown Verified 05/25/23 12:43 Medications Home Medications Medication Instructions Recorded Confirmed Last Taken prenat.vits,iker,zbs-bzpq-qrlec 1 tab PO QAM 11/29/21 05/27/23 05/27/23 09:00 aspirin 81 mg tablet,delayed 81 mg PO QAM 05/20/23 05/27/23 05/27/23 09:00 release doxylamine succinate 25 mg tablet 25 mg PO HS PRN Sleep 05/20/23 05/27/23 05/26/23 21:00 (Unisom (doxylamine)) omeprazole 40 mg capsule,delayed 40 mg PO HS 05/20/23 05/27/23 05/27/23 14:00 release Past Medical History Medical History Anesthesia complication epidural did not work for last Chlamydia 10 yrs ago Failure of descent in labor, delivered, current hospitalization Gallstones GERD (gastroesophageal reflux disease) Group beta Strep positive History of chicken pox History of COVID-11 May 2022 > not hospitalized Preeclampsia ASA 81mg for this Pyelonephritis affecting resolved Exercise / Class Metabolic Activity II 4-5 Yardwork/Stairs/Walk up hill Past Family History Family History Grandfather (Paternal) Myocardial infarction Mother Alcohol abuse Denies family history of Ovarian cancer Prostate cancer Breast cancer Colorectal cancer Past Surgical History Surgical History S/P LASIK surgery S/P tonsillectomy S/P wisdom tooth extraction Status post section x1 Past Anesthesia History No Hx of Anesthesia Complications and No Family Hx of Anesthesia Complications History of PONV No Hx of PONV and No Hx of Motion Sickness Social History Smoking Status: Never smoker Do You Dip or Chew Tobacco: No Hx Alcohol Use: No Alcohol type: beer, wine and hard liquor alcohol intake frequency: holidays/special occasions only Hx Substance Use: No substance use type: does not use Physical Exam Vital Signs Last Vital Signs Temp 36.9 C 05/27/23 21:36 Pulse 86 05/27/23 21:36 Resp 18 05/27/23 21:36 BP 126/82 05/27/23 21:36 Testing Laboratory Results 05/27/23 22:21
[2023-05-27 23:02] LABS: Basophils # (auto) 0.03 K/uL (0-0.2); Basophils % (auto) 0.3 %; Hematocrit (blood only) 36.8 % (37.0-47.0); Hemoglobin 12.5 g/dl (12.0-16.0); Immature Granulocytes # (auto) 0.09 K/uL (0.01-0.20); Immature Granulocytes % (auto) 0.9 %; Lymphocytes # (auto) 2.67 K/uL (1.2-3.4); Lymphocytes % (auto) 27.7 %; Mean Corpuscular Hemoglobin 30.2 pg (25.0-34.0); Mean Corpuscular Volume 88.9 fL (80.0-100.0); Mean Platelet Volume 13.4 fL (9.4-12.4); Monocytes # (auto) 0.81 K/uL (0.11-0.59); Monocytes % (auto) 8.4 %; Neutrophils # (auto) 5.94 K/uL (1.40-6.50); Neutrophils % (auto) 61.7 %; Platelet Count 215 K/uL (130-400); RDW Coefficient of Variation 12.7 % (11.5-14.5); RDW Standard Deviation 41.1 fL (36.4-46.3); Red Blood Count 4.14 M/uL (4.20-5.40); White Blood Count 9.64 K/ul (4.8-10.8)
[2023-05-27] MEDS ORDERED: ePHEDrine sulfate 50 MG/ML AMP IV PRN (23:07)
[2023-05-27] MEDS ORDERED: HYDROmorphone INJ 0.5 MG/0.5 ML SYR IV PRN (23:07)
[2023-05-27] MEDS ORDERED: NALBUPHINE HCL INJ 10 MG/ML AMP IV PRN (23:07)
[2023-05-27] MEDS ORDERED: MoRPHine SULFATE PF 1 MG/ML 10 ML AMP/VIAL INT SPINAL ONE (23:07)
[2023-05-27] MEDS ORDERED: LACTATED RINGER'S 500 ML IV PRN (23:07)
[2023-05-27] MEDS ORDERED: PROMETHAZINE HCL 12.5 MG in SODIUM CHLORIDE 0.9% 50 ML IV PRN (23:07)
[2023-05-27] MEDS ORDERED: diphenhydrAMINE 50 MG/ML VIAL IV PRN (23:07)
[2023-05-27] MEDS ORDERED: NALOXONE HCL 0.4 MG/1 ML VIAL/CARP IV PRN (23:07)
[2023-05-27] MEDS ORDERED: ONDANSETRON INJ 2 MG/ML 2 ML VIAL IV PRN (23:07)
[2023-05-27] MEDS ORDERED: NALOXONE HCL 0.08 MG in SYRINGE 1.8 ML IV PRN (23:07)
[2023-05-27] MEDS ORDERED: NALOXONE HCL 1 MG in SODIUM CHLORIDE 0.9% 1000ML 1,000 ML IV PRN (23:07)
[2023-05-27] MEDS ORDERED: SODIUM CHLORIDE 0.9% 1000ML 1,000 ML IV SCH (23:15)
[2023-05-27] MEDS ORDERED: NO NARCOTICS OR SEDATIVES SCH (23:15)
[2023-05-27] MEDS ORDERED: DC INTRASPINAL MORPHINE SCH (23:15)
--- NOTE | 2023-05-28 00:24 | Post Operative Brief Note ---
PG Immediate Post Op with CF Date of Surgery May 28, 2023 Pre & Post Diagnosis PRe-op Operation Date: 05/27/23 23:15 <No data on this case meets the specified criteria> Pre-op Dx- IUP at term in labor prior LTCS with short inter- interval Post-op Dx- same plus delivery of viable male @ 15 on 05/28/23 I identified the patient and participated in the time-out.: Yes Procedure Repeat low transverse section Operation Date: 05/27/23 23:15 <No data on this case meets the specified criteria> Surgeon Faviola Barth MD, FACOG Systems Auditor Americo Parks MD Estimated Blood Loss 500 Findings Consistent with Post-Op Diagnosis gravid uterus - bilateral ovaries and tubes are grossly normal Specimens Specimen Description: Placenta to hold Drains Manley Catheter Anesthesia Type Spinal Complications none Disposition Accompanied Patient To Recovery: Yes Disposition: L&D
--- NOTE | 2023-05-28 00:41 | Anesthesiology Progress Note ---
Date of Service May 28, 2023 Anesthesia Post Procedure Vital Signs Vital Signs: Temp Pulse Resp BP Pulse Ox 05/28/23 00:35 95 05/28/23 00:35 89 05/28/23 00:35 81 117/59 L 90 05/28/23 00:30 107 H 100 05/28/23 00:29 100 H 112/60 05/27/23 21:36 86 126/82 05/27/23 21:36 36.9 C 86 18 126/82 Transfer of Care Handoff Completed per policy Notes Mental Status: alert / awake / arousable and participated in evaluation Patient Amnestic to Procedure: No Nausea / Vomiting: adequately controlled Pain: adequately controlled Airway Patency, RR, SpO2: stable & adequate BP & HR: stable & adequate Hydration State: stable & adequate Neuraxial Anesthesia: was administered and sensory block is resolving Anesthetic Complications: no major complications apparent and Pt Satisfied with anesthetic care
[2023-05-28] MEDS: KETOROLAC 30 MG/ML VIAL IV PRN ×3 (00:50→14:02)
[2023-05-28] MEDS ORDERED: HYDROCORTISONE ACETATE 25 MG SUPP PR PRN (00:50)
[2023-05-28] MEDS ORDERED: MAGNESIUM HYDROXIDE SUSP 30 ML UDC PO PRN (00:50)
[2023-05-28] MEDS ORDERED: SENNA 8.6 MG TAB PO PRN (00:50)
[2023-05-28] MEDS ORDERED: DIPHTHERIA/TETANUS/PERTUSSIS Vaccine (Tdap, Age 7+yrs) 0.5mL SYR/VL IM ONE (00:50)
[2023-05-28] MEDS ORDERED: BENZOCAINE 20% SPRY 85 APPLN/85 GM CAN EXT PRN (00:50)
[2023-05-28] MEDS ORDERED: LACTATED RINGER'S 1,000 ML IV SCH (01:00)
--- NOTE | 2023-05-28 01:11 | Operative Report ---
PG Post Operative Report Pre & Post Diagnosis Operation Date: 05/27/23 23:15 <No data on this case meets the specified criteria> Pre-op diagnosis; intrauterine at term in active labor with prior low transverse section and short interpregnancy interval. Postop diagnosis: Same plus delivery of a viable male , 10 pounds 4 ounces, at 00 15 on 05/28/2023 I identified the patient and participated in the time-out.: Yes Procedure Operation Date: 05/27/23 23:15 Repeat low-transverse section Surgeon Faviola Barth MD, FACOG Inside Account Representative Americo Parks MD Estimated Blood Loss 500 Findings Consistent with Post-Op Diagnosis Specimens placenta to hold Drains Manley catheter to straight drainage- clear urine at the end of the case. Anesthesia Type Spinal Complications none Disposition Accompanied Patient To Recovery: Yes Disposition: L&D Indications Patient is a 33-year-old 2 para 1-0-0-1 female with an EDC of 06/04/2023 who presented in active labor. She was originally scheduled for a repeat section on 05/30/2023 because of prior section for failure to progress and short interpregnancy interval. Because she was found to be 5 cm on admission in labor and delivery, we proceeded with section at this time. Description of Procedure After the patient received adequate subarachnoid block she was prepped and draped in usual sterile fashion. A low transverse skin incision was made through her prior scar and carried to the fascia with the same scalpel. The fascial incision was then extended with Andujar scissors and then the edges were grasped with Mayte clamps. The underlying rectus muscles were bluntly sharply docked to the after the overlying fascia. The rectus muscles were with hemostat and the peritoneum was entered bluntly. The rectus muscles were then divided with a scalpel inferiorly. The bladder was then taken down off the anterior surface of the uterus and placed behind the bladder blade. The lower uterine segment was entered with a scalpel and extended in a cephalad and caudad direction. The male was delivered from the vertex presentation with moderate fundal pressure and the assistance of the vacuum. The shoulders were unable to be delivered until the rectus muscle was divided on the right side. After this small incision in the muscle,the rest of the delivered easily. The infant was vigorous, crying,and moving all 4 limbs. After the cord was clamped and cut the was handed off to Dr. Santana who was in attendance as director automotive along with the nursery team. After cord blood was obtained the placenta was manually removed. The uterus was then exteriorized and covered with a clean lap sponge. Uterine cavity was then explored and retained membranes were removed. After assuring that the uterine cavity was cleared of any other placental tissue or membranes, the uterus was closed in 2 layers in a running locking imbricating fashion with 0 Monocryl. Hemostasis noted to be excellent on the uterine incision. The posterior cul-de-sac was suctioned for a very small amount of fluid. The uterus was then placed back inside the peritoneal cavity. The gutters were noted to be free of any clot or fluid. The uterine incision continued to have excellent hemostasis. The rectus muscles were then brought together on the midline with individual stitches of 0 Monocryl. The fascia was closed in a running fashion with 0 Vicryl. Skin edges reapproximated with 4-0 Vicryl in a subcuticular fashion. Urine was clear at the end of the case. Mother and were doing well postdelivery. I attest to the content of the Intraoperative Record and any orders documented therein. Any exceptions are noted below. OB Procedure Charges 91397
[2023-05-28] MEDS: OXYTOCIN 20 UNITS in LACTATED RINGER'S 1,000 ML IV SCH ×2 (03:23→09:11)
[2023-05-28] MEDS ORDERED: SODIUM CHLORIDE 0.9% 250 ML IV PRN (03:59)
--- NOTE | 2023-05-28 06:34 | Obstetrical Progress Note ---
Date of Service <Jacquie Scruggs MD - Last Filed: 05/28/23 07:49> May 28, 2023 Assessment & Plan <Jacquie Scruggs MD - Last Filed: 05/28/23 07:49> (1) delivery delivered: Patient with the above mentioned history and findings was evaluated at bedside and found awake, alert, oriented in all spheres, afebrile, and in no acute distress. Will continue Indwelling Manley. Will also progress to regular diet and monitor tolerance. Will continue monitoring pain levels and management with current regimen. Will continue routine care. Patient is encouraged to breastfeed and to notify changes in her bleeding or incision. All questions were answered. <Faviola Barth MD, FACOG - Last Filed: 05/28/23 08:46> (1) delivery delivered: Subjective <Jacquie Scruggs MD - Last Filed: 05/28/23 07:49> Hortencia is a 33 y/o female who is POD #1 following repeat delivery at 38 6/7 weeks. She reports feeling well overall this morning. She refers moderate abdominal cramping & 5-6/10 pain prior to analgesics. Voiding through Manley which contains dark urine without blood or sediment in the bag or line. Currently on liquid diet and tolerating meals overnight. She has not been able to ambulate yet. She has not passed gas or had a bowel movement yet. Has some persistent lochia with some improvement this morning. Currently breas tfeeding. She is blood type A positive, GBS negative, and rubella immune. Constitutional: no fever, no chills or no sweats Denies shortness of breath or difficulty breathing. Cardiovascular: no chest pain or no palpitations Breast: no breast pain Genitourinary (female): no dysuria Neurologic: no headache(s) Denies changes in vision. Physical Exam <Jacquie Scruggs MD - Last Filed: 05/28/23 07:49> General: Alert. Oriented to person, time, and place. Afebrile. No acute distress. Eyes: pupils equal and reactive to light bilaterally, extraocular movements intact. Cardiac: Regular rate and rhythm, no murmurs/rubs/gallops. Respiratory: Clear to auscultation bilaterally a/p, no wheezes/rales/rhonchi. No increased work of breathing. Symmetrical chest rise. No respiratory distress. Abdomen: Soft, nontender, nondistended. Bowel sounds present. Low transverse surgical scar clean, dry, and without surrounding erythema or suppuration. Uterus: Uterine fundus firm, mildly tender, and palpable below umbilicus. Lower Extremities: No lower extremity edema or swelling. No deep calf pain. Gloria's negative bilaterally. Psych: Euthymic affect. Mood and affect congruence. Regular speech rate and content. Results & Data <Jacquie Scruggs MD - Last Filed: 05/28/23 07:49> Vital Signs (Past 12 Hours) Vital Signs Temp Pulse Resp BP Pulse Ox Pulse Ox O2 Del Method 05/28/23 03:43 18 95 05/28/23 03:43 95 Room Air 05/28/23 02:35 37.1 C 18 05/28/23 02:05 18 05/28/23 01:35 18 05/28/23 01:35 18 05/28/23 01:25 18 05/28/23 01:15 18 05/28/23 01:05 18 05/28/23 00:55 18 05/28/23 00:45 18 05/28/23 00:35 36.9 C 18 05/28/23 03:25 98 05/28/23 03:25 81 05/28/23 03:20 97 05/28/23 03:20 81 05/28/23 03:15 97 05/28/23 03:15 75 05/28/23 03:10 95 05/28/23 03:10 69 05/28/23 03:10 75 91 05/28/23 03:05 76 97 05/28/23 03:00 97 05/28/23 03:00 70 05/28/23 03:00 82 91 05/28/23 02:55 79 97 05/28/23 02:50 83 99 05/28/23 02:45 77 97 05/28/23 02:40 75 98 05/28/23 02:39 75 105/61 05/28/23 02:35 78 96 05/28/23 02:30 73 96 05/28/23 02:25 75 96 05/28/23 02:20 75 97 05/28/23 02:15 77 97 05/28/23 02:10 70 98 05/28/23 02:07 78 118/65 05/28/23 02:05 73 97 05/28/23 02:00 75 96 05/28/23 01:56 88 107/63 05/28/23 01:55 93 H 98 05/28/23 01:50 82 98 05/28/23 01:48 84 93 05/28/23 01:45 96 H 96 05/28/23 01:46 91 H 117/56 L 05/28/23 01:40 79 98 05/28/23 01:39 84 91 05/28/23 01:35 94 H 91 05/28/23 01:36 96 H 111/64 05/28/23 01:33 109 H 92 05/28/23 01:30 84 97 05/28/23 01:26 92 05/28/23 01:26 82 05/28/23 01:25 97 H 98 05/28/23 01:26 92 H 113/65 05/28/23 01:20 83 97 05/28/23 01:16 93 H 112/63 05/28/23 01:15 87 97 05/28/23 01:10 92 H 97 05/28/23 01:11 101 H 116/64 05/28/23 01:07 98 H 161/97 H 05/28/23 01:05 85 100 05/28/23 01:00 97 H 75 L 05/28/23 00:59 90 89 L 05/28/23 00:58 93 H 124/66 05/28/23 00:55 109 H 77 L 05/28/23 00:52 98 H 94 05/28/23 00:50 84 100 05/28/23 00:45 96 05/28/23 00:45 85 05/28/23 00:46 95 H 114/57 L 05/28/23 00:45 82 92 05/28/23 00:40 85 100 05/28/23 00:35 95 05/28/23 00:35 89 05/28/23 00:35 81 117/59 L 90 05/28/23 00:30 107 H 100 05/28/23 00:29 100 H 112/60 05/27/23 21:36 86 126/82 05/27/23 21:36 36.9 C 86 18 126/82 <Faviola Barth MD, FACOG - Last Filed: 05/28/23 08:46> Co-Signing Physician Notes Resident Physician Supervision Note: I interviewed and examined the patient. Discussed with Dr. Scruggs and agree with findings and plan as documented in the note. Any exceptions or clarifications are listed here: [None] Documented By: Faviola Barth MD, FACOG Resident Activity Tracking <Jacquie Scruggs MD - Last Filed: 05/28/23 07:49> Resident Involvement: Resident Care Provided Care Provided: OB Delivery
[2023-05-28] MEDS: FERROUS SULFATE 325 MG TAB PO SCH (08:00)
[2023-05-28] MEDS: PRENATAL VITAMIN 1 TAB PO SCH (08:01)
[2023-05-28] MEDS: SIMETHICONE 80 MG CHEW PO SCH ×4 (08:01→20:47)
[2023-05-28] MEDS: DOCUSATE SODIUM 100 MG CAP PO SCH ×2 (08:01→20:47)
[2023-05-28] MEDS ORDERED: MEPERIDINE HCL 50 MG/ML CARP IV PRN (17:07)
[2023-05-28] MEDS ORDERED: PROMETHAZINE HCL 25 MG in SODIUM CHLORIDE 0.9% 50 ML IV PRN (17:07)
[2023-05-28] MEDS ORDERED: KETOROLAC 30 MG/ML VIAL IV PRN (17:07)
[2023-05-28] MEDS ORDERED: diphenhydrAMINE Capsule 25 MG CAP PO PRN (17:07)
[2023-05-28] MEDS ORDERED: diphenhydrAMINE 50 MG/ML VIAL IV PRN (17:07)
[2023-05-28] MEDS ORDERED: ONDANSETRON INJ 2 MG/ML 2 ML VIAL IV PRN (17:07)
[2023-05-28] MEDS: oxyCODONE/ACETAMINOPHEN 5mg/325mg TAB PO PRN ×2 (18:47→23:37)
[2023-05-28] MEDS: IBUPROFEN 600 MG TAB PO PRN ×2 (18:47→23:36)
[2023-05-28] MEDS: HYDROCORTISONE 1% CRM 30 GM TUBE EXT PRN (20:09)
[2023-05-29] MEDS: HYDROCORTISONE 1% CRM 30 GM TUBE EXT PRN (03:39)
[2023-05-29] MEDS: IBUPROFEN 600 MG TAB PO PRN ×5 (05:51→22:22)
[2023-05-29] MEDS: oxyCODONE/ACETAMINOPHEN 5mg/325mg TAB PO PRN ×5 (05:51→22:22)
[2023-05-29 07:25] LABS: Basophils # (auto) 0.04 K/uL (0-0.2); Basophils % (auto) 0.4 %; Eosinophils # (auto) 0.25 K/uL (0-0.50); Eosinophils % (auto) 2.5 %; Hematocrit (blood only) 24.5 % (37.0-47.0); Hemoglobin 8.1 g/dl (12.0-16.0); Immature Granulocytes # (auto) 0.15 K/uL (0.01-0.20); Immature Granulocytes % (auto) 1.5 %; Lymphocytes # (auto) 2.22 K/uL (1.2-3.4); Lymphocytes % (auto) 22.2 %; Mean Corpuscular Hemoglobin 30.7 pg (25.0-34.0); Mean Corpuscular Hgb Conc 33.1 g/dL (32.0-36.0); Mean Corpuscular Volume 92.8 fL (80.0-100.0); Mean Platelet Volume 12.5 fL (9.4-12.4); Monocytes # (auto) 1.03 K/uL (0.11-0.59); Monocytes % (auto) 10.3 %; Neutrophils # (auto) 6.32 K/uL (1.40-6.50); Neutrophils % (auto) 63.1 %; Platelet Count 137 K/uL (130-400); RDW Standard Deviation 43.2 fL (36.4-46.3); Red Blood Count 2.64 M/uL (4.20-5.40); White Blood Count 10.01 K/ul (4.8-10.8)
--- NOTE | 2023-05-29 07:36 | Obstetrical Progress Note ---
Date of Service May 29, 2023 Assessment & Plan (1) delivery delivered: Postoperative day #2 from section patient is not ready for discharge today she will work on ambulating pain control plan discharge tomorrow Subjective Ambulation: ambulating normally Voiding: no voiding problems Passing Gas:: Yes Diet Tolerance:: regular diet Lochia:: Small Results & Data Vital Signs (Past 12 Hours) Vital Signs Temp Pulse Resp BP Pulse Ox O2 Del Method 05/29/23 00:19 97.7 F 87 16 121/73 Room Air 05/28/23 20:00 98.4 F 81 20 102/63 95 Room Air
[2023-05-29] MEDS: PRENATAL VITAMIN 1 TAB PO SCH (09:05)
[2023-05-29] MEDS: FERROUS SULFATE 325 MG TAB PO SCH (09:05)
[2023-05-29] MEDS: DOCUSATE SODIUM 100 MG CAP PO SCH ×2 (09:05→21:32)
[2023-05-29] MEDS: SIMETHICONE 80 MG CHEW PO SCH ×4 (09:05→21:32)
[2023-05-29] MEDS ORDERED: bisacodyL 5 MG TABEC PO SCH (20:00)
[2023-05-30] MEDS ORDERED: bisacodyL 10 MG SUPP PR PRN (00:50)
[2023-05-30] MEDS: IBUPROFEN 600 MG TAB PO PRN ×3 (03:37→14:24)
[2023-05-30] MEDS: oxyCODONE/ACETAMINOPHEN 5mg/325mg TAB PO PRN ×3 (03:37→14:24)
--- NOTE | 2023-05-30 05:20 | Obstetrical Progress Note ---
Date of Service <Reddy Tuttle MD - Last Filed: 05/30/23 11:10> May 30, 2023 Assessment & Plan <Reddy Tuttle MD - Last Filed: 05/30/23 11:10> (1) delivery delivered: Plan Vital Signs reviewed and WNL. (Tmax at 37.1) Hemoglobin Reviewed. 8.1 (05/29/23) 8.3 (today). - Blood Type: A+, GBS-, Rubella Immune. - Pt is doing well clinically. - Encourage Ambulation, Monitor and Control pain with Motrin PRN, Resume regular diet, Monitor Lochia Encourage Breast Feeding. Pt counselled on discharge instructions (only if they are going home that day). <Americo Parks MD, FACOG - Last Filed: 05/30/23 14:22> (1) delivery delivered: Subjective <Reddy Tuttle MD - Last Filed: 05/30/23 11:10> Ambulation: ambulating normally (a little hunched over) Voiding: no voiding problems and no incontinence Passing Gas:: Yes Diet Tolerance:: regular diet Lochia:: Small Feeding Type:: breast feeding Current Pain Level(1-10): 4 (when moving (0 or 1 otherwise)) 33 yo F s/p C/S day 3 presents with [id number] pain only when moving with pain well-controlled on pain meds. Review of Systems All systems reviewed & are unremarkable except as noted in HPI & below Constitutional: no fever, no chills or no sweats vitals within normal limits Cardiovascular: no chest pain or no palpitations Breast: no breast pain Genitourinary (female): no dysuria Neurologic: + headache(s) (pain meds and sleep have helped; none this morning) Psychiatric: no abnormal sleep pattern, no change in appetite or no anxiety Physical Exam <Reddy Tuttle MD - Last Filed: 05/30/23 11:10> Constitutional WD/WN, vitals as above Respiratory normal respiratory effort, lungs clear to auscultation Cardiovascular RRR, no murmur, no edema Gastrointestinal (Abdomen) Inspection/Auscultation: + abdominal surgical incision minor swelling on left side of incision, but non-erythematous Skin + rash (on r. ankle, r. thigh most like a PUPPP (pruritic, urticarial, plaque preg) Results & Data <Reddy Tuttle MD - Last Filed: 05/30/23 11:10> Vital Signs (Past 12 Hours) Vital Signs Temp Pulse Resp BP Pulse Ox O2 Del Method 05/30/23 03:33 36.5 C 82 18 111/68 97 Room Air 05/29/23 21:27 36.9 C 82 18 110/72 98 Room Air <Americo Parks MD, FACOG - Last Filed: 05/30/23 14:22> Co-Signing Physician Notes Resident Physician Supervision Note: I was present with [rosalinda] during the history and exam. I discussed the case with the resident and agree with the findings and plan as documented in the note. Any exceptions or clarifications are listed here: [None] Documented By: Americo Parks MD, FACOG
[2023-05-30 06:11] LABS: Hematocrit (blood only) 25.2 % (37.0-47.0); Hemoglobin 8.3 g/dl (12.0-16.0)
[2023-05-30] MEDS: DOCUSATE SODIUM 100 MG CAP PO SCH (08:02)
[2023-05-30] MEDS: SIMETHICONE 80 MG CHEW PO SCH (08:03)
[2023-05-30] MEDS: PRENATAL VITAMIN 1 TAB PO SCH (08:03)
[2023-05-30] MEDS: FERROUS SULFATE 325 MG TAB PO SCH (08:03)
[2023-05-30] MEDS ORDERED: hydrOXYzine HCl 10 MG TAB PO PRN (09:58)
--- NOTE | 2023-05-31 15:11 | Discharge Summary ---
Date of Service May 31, 2023 Admission HPI Per Admitting Provider Patient is a 33-year-old 2 para 1-0-0-1 female EDC of 06/04/2023 who presents at 38-6/7 weeks in active labor. She has had bloody show all day and contractions which have now become more consistent at every 5 to 7 minutes apart lasting a minute. Her last delivery was by section for failure to progress. She was scheduled for repeat section on 05/30/2023 because of short interpregnancy interval. has also been complication by several episodes of flank pain for which etiology could be intermittent cholecystitis as she has gallstones and sludge in her bladder. She has been treated at least once for pyelonephritis as well as a result of the flank pain. Also complicating the , was a pericardial effusion which was mildly elevated. Maternal- medicine consultation and ultrasound at [facility] was reassuring and felt the pericardial effusion was not a concern. GBS is negative. Her prior was also complicated by preeclampsia and she has been on low-dose aspirin during this as a result. Blood pressures so far this have been normal. Admission Exam (Per Admitting) Constitutional WD/WN, vitals as above Psychiatric A+Ox3, euthymic affect Genitourinary OB Exam Abdomen: + vertex and + regular contractions (Q6-7 minutes) Manual OB Exam: + cervical dilation + 5 cm, + cervical effacement + 80% and + station + high OB Exam Monitor Tracing: + external FHT monitor used, + external uterine monitor used, + category I and + normal FHT variability Discharge Data Consultations 05/27/23 21:59 Consult Anesthesiology Stat Procedures Performed Operation Date: 05/27/23 23:15 Actual Procedures p Section in LD for [facility] @ 2342(Bilateral) - Faviola Barth MD, [facility] Course (1) delivery delivered: Patient had an uncomplicated postop course. She is ambulating voiding and eating regular diet on her postop day. She did eventually have good pain relief with oral medications after some adjustments in frequency of these meds. She remained afebrile throughout her hospital course and she was sent home in good condition.. She was given the usual and postop instructions. She will be seen in 6 weeks for follow-up visit Discharge Plan Discharge Items Patient Disposition: Home - Self-Care Reason For Visit: SECTION Discharge Diagnosis: cs Activity: Per Instructions section Non-emergency contact: Dental Appliance Repairer Call non-emergency contact if: your pain is not controlled Follow-up/Referrals: Li Sullivan DO [Primary Care Provider] - Diet: Regular OB Addtl Attending Provider Instructions: ACTIVITY RECOMMENDATIONS: * Gradual return to full activity over the next 2-3 weeks. * No lifting - nothing heavier than baby over the next 2-3 weeks. * Do not engage in vigorous exercise, sexual activity or sports until cleared by your physician. * Do not drive or operate any motorized equipment until cleared by your physician. * You may shower/bathe daily. MEDICATIONS: For discomfort or pain, you may use Acetaminophen (Tylenol), Ibuprofen (Advil), or Naproxen (Aleve) following the package directions. For constipation you may use Colace following the package directions. BREAST CARE: If you are not breast feeding: * Wear a supportive bra 24 hours a day for one to two weeks. * Avoid stimulating your breasts and nipples as much as possible during the first few weeks after delivery. * When taking a shower, have the warm water hit your back, not breasts. * When your breasts feel full, apply ice packs. Usually three to four times a day helps ease the discomfort. * Take a mild pain medication (Tylenol / Motrin) when you are uncomfortable. If breast feeding: * Use breast milk to lubricate nipples. Lansinoh cream may be used for sore nipples. You do not need to remove cream prior to breast feeding. If using a different brand of cream, check the label for directions regarding removal of cream prior to nursing. * Wear a supportive bra. * If having problems with breasts or breast feeding, call a marketing sales consultant or your health care provider. SPECIAL CARE INSTRUCTIONS: When you are discharged from the hospital, it is important for you to follow the instructions listed below: * During the first week at home, you should be able to care for yourself and your baby. In addition, the usual light household activities are encouraged. * Limit your activities to the way you feel. Do not try to clean the house or move furniture. Be sensible. * If you actively engage in sports and have done so up until the time of your delivery, you may resume these activities as soon as you feel able. This may take up to one month or even longer. Use good judgment. * Continue to take your vitamins for at least six weeks after the of your baby. * Your diet need not be limited unless you were on a special diet before your delivery. Breast-feeding mothers need around 2500 calories per day and at least 64-80 ounces of fluid per day (8 to 10 glasses). * You should eat foods from the four major food groups. Crash diets or fad diets are to be avoided. Eating lean meats, fresh fruits and vegetables, low-fat dairy products, high fiber foods and a regular exercise program, will help you get back to your pre- weight without putting your health at risk. * Constipation is sometimes a problem after delivery. Take a mild laxative as needed. If breast feeding, Milk of Magnesia is acceptable to use. You may use a suppository or Fleets enema. * A daily shower or tub bath is suggested. Wash incision daily with warm soapy water and pat dry. It doesn't need to be covered unless drainage is present. * A bloody vaginal discharge will usually continue until around four weeks . A small amount of bleeding may continue for as long as six weeks. Vaginal discharge changes from the bright red bleeding after delivery to pink then brownish and finally yellowish-pink before becoming white and disappearing. * Bleeding may increase with activity. Your first period may come in 4-8 wee ks. If you are breast feeding, your period may be delayed even longer. * [place] (sex) can begin whenever both you and your partner feel comfortable and do not have any form of genital infection. It is recommended that you wait at least six weeks for internal and external healing to occur. If you have questions, please talk to your health care practitioner. A condom should be used to prevent infection and . * Foreplay, gentle intercourse and lubrication is very important the first several times to prevent pain. A water-based lubricant such as K-Y jelly or Astroglide may be used. * If you have RH negative blood and your baby is RH positive, you will receive RHOGAM by injection prior to discharge. The nurse will give you a card to keep w ith you that has the date and place that you received RHOGAM after delivery. * During your care, you had a Rubella screen done to check for the presence of rubella antibodies in your blood. If your test was negative, you will receive a Rubella vaccine prior to discharge. This vaccine may cause a fever, soreness at the injection site and flu-like symptoms. If these symptoms persist, notify your health care practitioner. is not advised for one month after a Rubella vaccine. * Verbalizes understanding of car seat law as reviewed with patient nursing. * Car Seat hand-out given and reviewed with patient by nursing. * Shaken baby information reviewed with patient by nursing. Call you doctor if: * Heavy bleeding (saturating several pads an hour) or passing clots the size of your fist. * A fever >101 degrees F (38.3 degrees C) on two occasions four hours apart and/or chills. * Unusual pain in the pelvic or vaginal areas. * Call the doctor for any increased redness, drainage or swelling around the incision and any pain unrelieved by prescribed pain medication. * "Baby Blues" lasting longer than two weeks. If you have any questions or concerns, call your health care practitioner at . FOLLOW UP VISIT: * Please call the office at to schedule a 6 week examination. It is important you keep this appointment. It is important for you to make arrangements for either yearly or twice yearly check-ups thereafter. Pending Studies at Discharge: No Stand-Alone Forms: My [facility], Smoking Cessation Medications and DC Order Prescriptions: New oxycodone-acetaminophen [Percocet] 5-325 mg tablet 1 tab PO Q6H PRN (Reason: pain) Qty: 20 0RF ibuprofen 600 mg tablet 600 mg PO Q8H PRN (Reason: pain) Qty: 20 0RF hydroxyzine HCl 10 mg tablet 10 mg PO Q6H PRN (Reason: itching) Qty: 20 0RF Continued prenat.vits,iker,vik-ewxy-tghcd Tablet 1 tab PO QAM Unisom (doxylamine) 25 mg Tablet 25 mg PO HS PRN (Reason: Sleep) omeprazole 40 mg capsule,delayed release(DR/EC) 40 mg PO HS PRN (Reason: Acid Reflux) Discontinued aspirin [Aspir-81] 81 mg Tablet,Delayed Release (Dr/Ec) 81 mg PO QAM No Action cephalexin 500 mg capsule 500 mg PO BID 7 Days Qty: 14 0RF Discharge Orders: Discharge Order (Routine); Ordered 05/30/23 Ordered By: Americo Smith/Other Patient Handouts: Depression, DVT in Admission Data Admit Date/Time: 05/27/23 21:59 Attending Provider: Faviola Barth Admit Provider: Faviola Barth Primary Care Provider: Li Sullivan Other Providers: Brian Remy Other Interventions: Discharge Summary Assessment (RN) Last Done: 05/30/23 12:32 Coding Level of Care Code 41074 IN/OBS DISCH 30 MIN/LESS Diagnoses delivery delivered O82
== END 2023-05-30 14:40 | disposition home or self-care (01) | DRG 788 ==
LOC: OPB 21:21 → 4S1 21:23 → 4E2 05-28 04:42
DX: Z37.0 Single live birth; O26.893 Other specified pregnancy related conditions, third trimester; O34.211 Maternal care for low transverse scar from previous cesarean delivery; Z3A.39 39 weeks gestation of pregnancy; Z88.1 Allergy status to other antibiotic agents

== ENCOUNTER 2023-06-06 10:33 | Observation (INO) ==
[~2023-06-06 10:33] MED LIST: 300mg Preop IV SCH; 600mg Preop IV SCH; CLINDAMYCIN/D5W 900 MG/50 ML BAG IV SCH
[2023-06-06] MEDS ORDERED: SODIUM CHLORIDE 0.9% 1000ML 1,000 ML IV SCH (10:45)
--- NOTE | 2023-06-06 10:45 | Emergency Department Note ---
Impression & Plan hemorrhage, Anemia ED Provider Note NAME: CHUY FOLEY AGE: 33 SEX: F : 1990 ARRIVES VIA: Ambulance INFORMANT: Patient, EMS ED PROVIDER(S): Madhav Hargrove DO CHIEF COMPLAINT: Vaginal bleeding HPI: The patient is a 33-year-old female who presented to the emergency department for vaginal bleeding. The patient is 10 days status post . The patient has a history of previous and this is why she had a C-s ection although she states that she did have some abnormal LFTs as well as some rashes towards the end of the . She states the rashes on her lower extremities but this is improving. She denies having any nausea or vomiting. She denies having any chest pain. She was very diaphoretic was placed directly in room B1 upon arrival. She started bleeding at approximately 930. ROS: See above HPI for pertinent positives & negatives. A total of 10 systems reviewed and were otherwise negative. PAST MEDICAL HISTORY: See Below PAST SURGICAL HISTORY: See Below FAMILY HISTORY: See Below SOCIAL HISTORY: See Below HOME MEDICATIONS: See Below ALLERGIES: See Below VITALS: See Below PHYSICAL EXAMINATION: GENERAL: The patient is awake and alert. She is very anxious appearing. EYES: The conjunctivae are clear. The pupils are round and reactive. EARS, NOSE, MOUTH AND THROAT: The nose is without any evidence of any deformity. NECK: The neck is nontender and supple. RESPIRATORY: Normal respiratory effort is noted there is no evidence of wheezing rhonchi or rales CARDIOVASCULAR: Regular rate and rhythm noted there no murmurs rubs or gallops normal S1 normal S2. GASTROINTESTINAL: the abdomen is mildly distended. There is suprapubic tenderness to palpation but no guarding rigidity. MUSCULOSKELETAL/EXTREMITIES: There is no evidence of gross deformity full range of motion is noted in the hips and shoulders. SKIN: Skin is warm and dry. Trace pedal edema was noted bilaterally. There is a slight erythematous rash noted on the medial aspect of both lower extremities. Skin was diaphoretic NEUROLOGIC: Patient is awake alert and oriented x3 MEDICAL DECISION MAKING: The patient is a 33-year-old female who presented to the emergency department for an evaluation of bleeding. The patient had very heavy bleeding. I contacted the clark Salesy [employer]ICIAN physician after my initial evaluation. Hemoglobin was stable. The patient was treated with IV fluids. She was also treated with TXA in the emergency department. After evaluation by STAGE ELECTRICIAN she was further treated with Pitocin. I discussed the patient's laboratory results with her. She was evaluated in the emergency department by STAGE ELECTRICIAN. Some clots were evacuated from the vaginal vault and she did have some improvement of her symptoms but the bleeding then continued. She was felt to be a better candidate for intraoperative management. She was taken to the OR by Clark Ferreira [employer] ELECTRICIAN. Triage Nursing notes reviewed. Prior medical records reviewed Vital Signs: reviewed and remarkable for no significant abnormalities Differential diagnosis: Etiologies such as threatened AB, miscarriage, ectopic , dysfunction uterine bleeding, bleeding dyscrasia, trauma, infection, as well as others were entertained. ER treatment provided: See below Diagnostics interpreted by me: ECG: EKG was obtained in the emergency department. My interpretation is normal sinus rhythm at 82 bpm. There was no ectopy. There is no acute ST segment abnormalities noted. Cardiac Monitoring: An order was placed for continuous cardiac monitoring. The monitor shows a rate of 92 bpm with sinus rhythm. Laboratory studies: As stated above and show below. Imaging studies: See below. Consultation(s): I discussed this case with Dr. Lopez who is on-call for Clark Ferreira [employer]IC[facility]. I have personally spent greater than 35 minutes of critical care time in the direct management of this patient. This includes bedside care, interpretation of diagnostic studies, and testing, discussion with consultants, patient, and family members, and other required patient management activities. This 35 minutes is in excess of all separately billable procedures. Past Med/Surg History Medical History Anesthesia complication epidural did not work for last Chlamydia 10 yrs ago Failure of descent in labor, delivered, current hospitalization Gallstones GERD (gastroesophageal reflux disease) Group beta Strep positive History of chicken pox History of COVID-11 May 2022 > not hospitalized Preeclampsia ASA 81mg for this Pyelonephritis affecting resolved Surgical History S/P LASIK surgery S/P tonsillectomy S/P wisdom tooth extraction Status post section x1 Family History Grandfather (Paternal) Myocardial infarction Mother Alcohol abuse Denies family history of Ovarian cancer Prostate cancer Breast cancer Colorectal cancer Social History Smoking Status: Never smoker Second Hand Exposure: No; Do You Dip or Chew Tobacco: No; Hx Alcohol Use: No Hx Substance Use: No Preferred Language: Polish Communication Ability: Effective Visual Impairment: No Limitations Hearing Ability: Normal Silviculture Teacher Required: No Beliefs That Will Affect Care: None marital status: marital status details: Shraddha Crespo (34) [phone]/ [phone] Current Living Situation: Spouse and Family Current Living Situation Comment: daughter 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[employer] Feels Safe at Home: Yes Physical Activity Frequency: 3-4 Times per Week Assistive Devices: None Allergies Allergies Allergy/AdvReac Type Severity Reaction Status Date / Time cefaclor [From Ceclor] Allergy Unknown Unknown Verified 06/01/23 14:07 Home Meds Home Medications Medication Instructions Recorded Confirmed prenat.vits,iker,[id number] 1 tab PO QAM 11/29/21 06/01/23 doxylamine succinate 25 mg tablet 25 mg PO HS PRN Sleep 05/20/23 06/01/23 (Unisom (doxylamine)) omeprazole 40 mg capsule,delayed 40 mg PO HS PRN Acid Reflux 05/20/23 06/01/23 release Previous Rx's Medication Instructions Recorded hydroxyzine HCl 10 mg tablet 10 mg PO Q6H PRN itching #20 tabs 05/30/23 ibuprofen 600 mg tablet 600 mg PO Q8H PRN pain #20 tabs 05/30/23 oxycodone-acetaminophen 5 mg-325 1 tab PO Q6H PRN pain #20 tabs 05/30/23 mg tablet (Percocet) cephalexin 500 mg capsule 500 mg PO BID 7 days #14 caps 05/31/23 betamethasone dipropionate 0.05 % 1 applic topical BID #45 grams 06/01/23 topical cream Results & Data (ED) Vital Signs Vital Signs - 24 hr 06/06/23 10:42 06/06/23 10:45 06/06/23 10:38 Temperature 37.2 C Temperature Source Oral Pulse Rate 77 78 Pulse Rate [Apical] Pulse Rate [Finger] Pulse Rate from SpO2 Sensor Pulse Rhythm Regular Pulse Rhythm [Apical] Pulse Rhythm [Finger] Pulse Strength Normal Pulse Strength [Apical] Pulse Strength [Finger] Respiratory Rate 18 Respiratory Effort / Characteristics Non-Labored Spontaneous Respiratory Depth Normal Respiratory Pattern Regular Blood Pressure Blood Pressure [Left Arm] Blood Pressure Mean Blood Pressure Mean [Left Arm] Blood Pressure Position [Left Arm] Pulse Oximetry 100 100 Oxygen Delivery Method Room Air Room Air Oxygen Flow Rate Sepsis Recent Fever Within 48 Hours No Sepsis New/Unexplained Change in Mental Status No Sepsis Action Taken by Nursing No Action Required 06/06/23 10:43 06/06/23 10:55 06/06/23 10:56 Temperature Temperature Source Pulse Rate 80 100 H 101 H Pulse Rate [Apical] Pulse Rate [Finger] Pulse Rate from SpO2 Sensor 81 98 H 100 H Pulse Rhythm Pulse Rhythm [Apical] Pulse Rhythm [Finger] Pulse Strength Pulse Strength [Apical] Pulse Strength [Finger] Respiratory Rate 17 23 20 Respiratory Effort / Characteristics Respiratory Depth Respiratory Pattern Blood Pressure 118/74 115/76 101/82 Blood Pressure [Left Arm] Blood Pressure Mean 88 89 88 Blood Pressure Mean [Left Arm] Blood Pressure Position [Left Arm] Pulse Oximetry 99 100 100 Oxygen Delivery Method Oxygen Flow Rate Sepsis Recent Fever Within 48 Hours Sepsis New/Unexplained Change in Mental Status Sepsis Action Taken by Nursing 06/06/23 11:00 06/06/23 11:05 06/06/23 11:10 Temperature Temperature Source Pulse Rate 91 H 89 106 H Pulse Rate [Apical] Pulse Rate [Finger] Pulse Rate from SpO2 Sensor 88 93 H 105 H Pulse Rhythm Pulse Rhythm [Apical] Pulse Rhythm [Finger] Pulse Strength Pulse Strength [Apical] Pulse Strength [Finger] Respiratory Rate 24 19 20 Respiratory Effort / Characteristics Respiratory Depth Respiratory Pattern Blood Pressure 128/72 125/86 Blood Pressure [Left Arm] Blood Pressure Mean 90 99 Blood Pressure Mean [Left Arm] Blood Pressure Position [Left Arm] Pulse Oximetry 99 100 100 Oxygen Delivery Method Oxygen Flow Rate Sepsis Recent Fever Within 48 Hours Sepsis New/Unexplained Change in Mental Status Sepsis Action Taken by Nursing 06/06/23 11:10 06/06/23 11:15 06/06/23 11:20 Temperature Temperature Source Pulse Rate 99 H 106 H Pulse Rate [Apical] Pulse Rate [Finger] Pulse Rate from SpO2 Sensor 101 H 110 H Pulse Rhythm Pulse Rhythm [Apical] Pulse Rhythm [Finger] Pulse Strength Pulse Strength [Apical] Pulse Strength [Finger] Respiratory Rate 14 20 Respiratory Effort / Characteristics Respiratory Depth Respiratory Pattern Blood Pressure 96/83 L 151/88 H 123/89 Blood Pressure [Left Arm] Blood Pressure Mean 87 109 100 Blood Pressure Mean [Left Arm] Blood Pressure Position [Left Arm] Pulse Oximetry 100 100 Oxygen Delivery Method Oxygen Flow Rate Sepsis Recent Fever Within 48 Hours Sepsis New/Unexplained Change in Mental Status Sepsis Action Taken by Nursing 06/06/23 11:25 06/06/23 11:30 06/06/23 11:35 Temperature Temperature Source Pulse Rate 92 H 97 H 90 Pulse Rate [Apical] Pulse Rate [Finger] Pulse Rate from SpO2 Sensor 95 H 97 H 93 H Pulse Rhythm Pulse Rhythm [Apical] Pulse Rhythm [Finger] Pulse Strength Pulse Strength [Apical] Pulse Strength [Finger] Respiratory Rate 14 20 26 H Respiratory Effort / Characteristics Respiratory Depth Respiratory Pattern Blood Pressure 130/85 127/85 Blood Pressure [Left Arm] Blood Pressure Mean 100 99 Blood Pressure Mean [Left Arm] Blood Pressure Position [Left Arm] Pulse Oximetry 100 100 100 Oxygen Delivery Method Oxygen Flow Rate Sepsis Recent Fever Within 48 Hours Sepsis New/Unexplained Change in Mental Status Sepsis Action Taken by Nursing 06/06/23 11:37 06/06/23 11:37 06/06/23 11:40 Temperature Temperature Source Pulse Rate 97 H 90 Pulse Rate [Apical] Pulse Rate [Finger] Pulse Rate from SpO2 Sensor 95 H 90 Pulse Rhythm Pulse Rhythm [Apical] Pulse Rhythm [Finger] Pulse Strength Pulse Strength [Apical] Pulse Strength [Finger] Respiratory Rate 17 19 Respiratory Effort / Characteristics Respiratory Depth Respiratory Pattern Blood Pressure 135/88 142/81 H 128/80 Blood Pressure [Left Arm] Blood Pressure Mean 103 101 96 Blood Pressure Mean [Left Arm] Blood Pressure Position [Left Arm] Pulse Oximetry 100 100 Oxygen Delivery Method Oxygen Flow Rate Sepsis Recent Fever Within 48 Hours Sepsis New/Unexplained Change in Mental Status Sepsis Action Taken by Nursing 06/06/23 11:45 06/06/23 12:00 06/06/23 12:15 Temperature Temperature Source Pulse Rate 82 93 H 104 H Pulse Rate [Apical] Pulse Rate [Finger] Pulse Rate from SpO2 Sensor 84 95 H 102 H Pulse Rhythm Pulse Rhythm [Apical] Pulse Rhythm [Finger] Pulse Strength Pulse Strength [Apical] Pulse Strength [Finger] Respiratory Rate 19 19 15 Respiratory Effort / Characteristics Respiratory Depth Respiratory Pattern Blood Pressure 134/77 127/75 131/80 Blood Pressure [Left Arm] Blood Pressure Mean 96 92 97 Blood Pressure Mean [Left Arm] Blood Pressure Position [Left Arm] Pulse Oximetry 99 98 99 Oxygen Delivery Method Oxygen Flow Rate Sepsis Recent Fever Within 48 Hours Sepsis New/Unexplained Change in Mental Status Sepsis Action Taken by Nursing 06/06/23 12:30 06/06/23 12:32 06/06/23 12:54 Temperature 36.9 C Temperature Source Oral Pulse Rate 96 H Pulse Rate [Apical] Pulse Rate [Finger] 104 H Pulse Rate from SpO2 Sensor 95 H Pulse Rhythm Pulse Rhythm [Apical] Pulse Rhythm [Finger] Regular Pulse Strength Pulse Strength [Apical] Pulse Strength [Finger] Normal Respiratory Rate 20 18 Respiratory Effort / Characteristics Non-Labored Spontaneous Respiratory Depth Normal Respiratory Pattern Regular Blood Pressure Blood Pressure [Left Arm] 130/81 Blood Pressure Mean Blood Pressure Mean [Left Arm] 97 Blood Pressure Position [Left Arm] Sitting Pulse Oximetry 97 97 Oxygen Delivery Method Room Air Room Air Oxygen Flow Rate Sepsis Recent Fever Within 48 Hours Sepsis New/Unexplained Change in Mental Status Sepsis Action Taken by Nursing 06/06/23 13:55 06/06/23 14:05 Temperature 36.5 C Temperature Source Temporal Artery Scan Pulse Rate Pulse Rate [Apical] 108 H 92 H Pulse Rate [Finger] Pulse Rate from SpO2 Sensor Pulse Rhythm Pulse Rhythm [Apical] Regular Regular Pulse Rhythm [Finger] Pulse Strength Pulse Strength [Apical] Normal Normal Pulse Strength [Finger] Respiratory Rate 18 18 Respiratory Effort / Characteristics Non-Labored Spontaneous Non-Labored Spontaneous Respiratory Depth Normal Normal Respiratory Pattern Regular Regular Blood Pressure Blood Pressure [Left Arm] 121/80 118/76 Blood Pressure Mean Blood Pressure Mean [Left Arm] 93 90 Blood Pressure Position [Left Arm] Lying Lying Pulse Oximetry 100 100 Oxygen Delivery Method Oxymask Oxymask Oxygen Flow Rate 6 4 Sepsis Recent Fever Within 48 Hours Sepsis New/Unexplained Change in Mental Status Sepsis Action Taken by [facility] Medications Current Medication List: was personally reviewed by me Laboratory Data Attestation: I reviewed the patient's lab results. 06/06/23 10:41 06/06/23 10:41 Lab Results 06/06/23 06/06/23 06/06/23 Range/Units 10:41 10:41 10:41 WBC 11.85 H (4.8-10.8) K/ul RBC 3.37 L (4.20-5.40) M/uL Hgb 10.1 L (12.0-16.0) g/dl POC Hgb (12.0-16.0) g/dl Hct 30.3 L (37.0-47.0) % POC Hct (37-47) % MCV 89.9 (80.0-100.0) fL MCH 30.0 (25.0-34.0) pg MCHC 33.3 (32.0-36.0) g/dL RDW Std Deviation 43.3 (36.4-46.3) fL RDW Coeff of Ezekiel 13.3 (11.5-14.5) % Plt Count 408 H (130-400) K/uL MPV 10.0 (9.4-12.4) fL Immature Gran % (Auto) 1.9 % Neut % (Auto) 62.9 % Lymph % (Auto) 23.8 % [place] % (Auto) 7.8 % Eos % (Auto) 2.9 % Baso % (Auto) 0.7 % Neut # (Auto) 7.46 H (1.40-6.50) K/uL Lymph # (Auto) 2.82 (1.2-3.4) K/uL [place] # (Auto) 0.92 H (0.11-0.59) K/uL Eos # (Auto) 0.34 (0-0.50) K/uL Baso # (Auto) 0.08 (0-0.2) K/uL Immature Gran # (Auto) 0.23 H (0.01-0.20) K/uL PT 11.3 (9.0-12.0) Seconds INR 1.0 (0.9-1.1) APTT 27.6 (21.0-31.0) Seconds PTT Ratio 1.0 POC Sodium (135-144) mmol/L Sodium (136-145) mmol/L POC Potassium (3.3-5.0) mmol/L Potassium (3.5-5.1) mmol/L POC Chloride (101-112) mmol/L Chloride (98-107) mmol/L Carbon Dioxide (21-32) mmol/L POC Total CO2 (24-31) mmol/L Anion Gap (3-11) POC Anion Gap (16-25) mmol/L POC BUN (7-18) mg/dl BUN (6-23) mg/dl Creatinine (0.6-1.2) mg/dl POC Creatinine (0.6-1.3) mg/dl Est Cr Clr Drug Dosing ml/min Est GFR ( Amer) ml/min Est GFR (Non-Af Amer) ml/min BUN/Creatinine Ratio (10-20) Glucose (70-99(Fasting)) mg/dl POC Glucose (other) (70-99) mg/dl Calcium (8.6-10.3) mg/dl POC Ioniz Calcium Curly (1.12-1.32) mmol/l Total Bilirubin (0.2-1.0) mg/dl AST (13-39) U/L ALT (7-52) U/L Alkaline Phosphatase (34-104) U/L Total Protein (6.0-8.3) gm/dl Albumin (3.4-5.0) gm/dl Globulin (2.5-4.0) gm/dl Albumin/Globulin Ratio (0.9-2) HCG, Quant mIU/ml Blood Type A Positive Antibody Screen NEGATIVE 06/06/23 06/06/23 06/06/23 Range/Units 10:41 10:41 10:45 WBC (4.8-10.8) K/ul RBC (4.20-5.40) M/uL Hgb (12.0-16.0) g/dl POC Hgb 9.2 L (12.0-16.0) g/dl Hct (37.0-47.0) % POC Hct 27 L (37-47) % MCV (80.0-100.0) fL MCH (25.0-34.0) pg MCHC (32.0-36.0) g/dL RDW Std Deviation (36.4-46.3) fL RDW Coeff of Ezekiel (11.5-14.5) % Plt Count (130-400) K/uL MPV (9.4-12.4) fL Immature Gran % (Auto) % Neut % (Auto) % Lymph % (Auto) % [place] % (Auto) % Eos % (Auto) % Baso % (Auto) % Neut # (Auto) (1.40-6.50) K/uL Lymph # (Auto) (1.2-3.4) K/uL [place] # (Auto) (0.11-0.59) K/uL Eos # (Auto) (0-0.50) K/uL Baso # (Auto) (0-0.2) K/uL Immature Gran # (Auto) (0.01-0.20) K/uL PT (9.0-12.0) Seconds INR (0.9-1.1) APTT (21.0-31.0) Seconds PTT Ratio POC Sodium 140 (135-144) mmol/L Sodium 139 (136-145) mmol/L POC Potassium 3.5 (3.3-5.0) mmol/L Potassium 4.3 (3.5-5.1) mmol/L POC Chloride 106 (101-112) mmol/L Chloride 109 H (98-107) mmol/L Carbon Dioxide 21 (21-32) mmol/L POC Total CO2 19 L (24-31) mmol/L Anion Gap 9 (3-11) POC Anion Gap 20.0 (16-25) mmol/L POC BUN 9 (7-18) mg/dl BUN 10 (6-23) mg/dl Creatinine 0.68 (0.6-1.2) mg/dl POC Creatinine 0.7 (0.6-1.3) mg/dl Est Cr Clr Drug Dosing 142.1 ml/min Est GFR ( Amer) 133.2 ml/min Est GFR (Non-Af Amer) 114.9 ml/min BUN/Creatinine Ratio 14.7 (10-20) Glucose 95 (70-99(Fasting)) mg/dl POC Glucose (other) 106 H (70-99) mg/dl Calcium 9.2 (8.6-10.3) mg/dl POC Ioniz Calcium Curly 1.17 (1.12-1.32) mmol/l Total Bilirubin 0.6 (0.2-1.0) mg/dl AST 19 (13-39) U/L ALT 19 (7-52) U/L Alkaline Phosphatase 120 H (34-104) U/L Total Protein 7.0 (6.0-8.3) gm/dl Albumin 3.6 (3.4-5.0) gm/dl Globulin 3.4 (2.5-4.0) gm/dl Albumin/Globulin Ratio 1.1 (0.9-2) HCG, Quant 17 mIU/ml Blood Type Antibody Screen Administered Medications Fentanyl Citrate (Fentanyl Citrate Pf 100 Mcg/2 Ml Vial) 50 mcg IV Q15M PRN PRN Reason: Pain Stop: 06/20/23 11:34 Last Admin: 06/06/23 11:38 Dose: 50 mcg Documented By: ALEXSANDRA Oxytocin 20 units/ Lactated (Ringer's) 1,002 mls @ 125 mls/hr IV .Q8H1M STA Stop: 06/06/23 19:21 Last Admin: 06/06/23 11:31 Dose: 125 mls/hr Documented By: ALEXSANDRA Co-signed By: AMT Discontinued Medications Carboprost Tromethamine (Carboprost Tromethamine 250 Mcg/Ml Ampul) 250 mcg IM ONE STA Stop: 06/06/23 11:24 Last Admin: 06/06/23 11:29 Dose: 250 mcg Documented By: ALEXSANDRA Sodium Chloride (Nss 1000ml) 1,000 mls @ 999 mls/hr IV .Q1H1M EMILIO Stop: 06/06/23 11:45 Last Admin: 06/06/23 10:51 Dose: 999 mls/hr Documented By: CLIVE Tranexamic Acid (Tranexamic Acid / 0.7% Nacl) 1,000 mg in 100 mls @ 600 mls/hr IV NOW ONE Stop: 06/06/23 11:24 Last Admin: 06/06/23 11:09 Dose: 600 mls/hr Documented By: ALEXSANDRA Gentamicin Sulfate 460 mg/ (Dextrose) 111.5 mls @ 100 mls/hr IV ONCE STA Stop: 06/06/23 14:05 Last Admin: 06/06/23 13:25 Dose: 100 mls/hr Documented By: TIERA Ondansetron HCl (Ondansetron Inj 2 Mg/Ml 2 Ml Vial) 4 mg IV NOW STA Stop: 06/06/23 11:36 Last Admin: 06/06/23 11:38 Dose: 4 mg Documented By: ALEXSANDRA Imaging Data Radiologist's Impression: Pelvis Ultrasound 06/06/23 11:21 US pelvic complete HISTORY: 33 years-old Female postgravid uterus. acute pelvic pain with vaginal bleeding COMPARISON: 04/19/2023 TECHNIQUE: Multiple real-time sonographic images of the pelvic structures were obtained transabdominally assessing grayscale appearance and color flow FINDINGS: The transvaginal component of the study was not obtained secondary to patient currently on pelvic rest. The ovaries are obscured by bowel gas. This measures 20 x 8 x 11 cm. Heterogeneous echogenic material within the endometrial canal measures up to 11 x 5 x 8 cm. No color flow identified. Endometrium is thickened measuring up to 6 cm. IMPRESSION: Post gravid uterus with probable blood products within the endometrial cavity. No definite retained products of conception identified on this study. Close follow-up recommended. ACT 112: Negative or not required by law. The above report was generated using voice recognition software. It may contain grammatical, syntax or spelling errors. Electronically signed by: Abelardo Alves M.D. 06/06/2023 11:57 AM Discharge Plan Visit Data Chief Complaint: Vaginal Bleeding Stated Complaint: VAGINAL BLEEDING S/P CSECTION 10 DAYS ED Provider: Madhav Hargrove Discharge Problem: hemorrhage, Anemia Patient Disposition: Admitted As Inpatient Discharge Instructions Interventions: ED Discharge Assessment Last Done: 06/06/23 12:32 Forms Stand Alone Forms: Practice Management e-Tools Prescriptions Prescriptions: No Action betamethasone dipropionate 0.05 % cream 1 applic topical BID Qty: 45 0RF prenat.vits,iker,[id number] Tablet 1 tab PO QAM oxycodone-acetaminophen [Percocet] 5-325 mg tablet 1 tab PO Q6H PRN (Reason: pain) Qty: 20 0RF ibuprofen 600 mg tablet 600 mg PO Q8H PRN (Reason: pain) Qty: 20 0RF hydroxyzine HCl 10 mg tablet 10 mg PO Q6H PRN (Reason: itching) Qty: 20 0RF cephalexin 500 mg capsule 500 mg PO BID 7 Days Qty: 14 0RF Unisom (doxylamine) 25 mg Tablet 25 mg PO HS PRN (Reason: Sleep) omeprazole 40 mg capsule,delayed release(DR/EC) 40 mg PO HS PRN (Reason: Acid Reflux) Referrals Referrals: Li Sullivan DO [Primary Care Provider] -
[2023-06-06 10:49] LABS: Basophils # (auto) 0.08 K/uL (0-0.2); Basophils % (auto) 0.7 %; Eosinophils # (auto) 0.34 K/uL (0-0.50); Eosinophils % (auto) 2.9 %; Hematocrit (blood only) 30.3 % (37.0-47.0); Hemoglobin 10.1 g/dl (12.0-16.0); Immature Granulocytes # (auto) 0.23 K/uL (0.01-0.20); Immature Granulocytes % (auto) 1.9 %; Lymphocytes # (auto) 2.82 K/uL (1.2-3.4); Lymphocytes % (auto) 23.8 %; Mean Corpuscular Hgb Conc 33.3 g/dL (32.0-36.0); Mean Corpuscular Volume 89.9 fL (80.0-100.0); Monocytes # (auto) 0.92 K/uL (0.11-0.59); Monocytes % (auto) 7.8 %; Neutrophils # (auto) 7.46 K/uL (1.40-6.50); Neutrophils % (auto) 62.9 %; Platelet Count 408 K/uL (130-400); RDW Coefficient of Variation 13.3 % (11.5-14.5); RDW Standard Deviation 43.3 fL (36.4-46.3); Red Blood Count 3.37 M/uL (4.20-5.40); White Blood Count 11.85 K/ul (4.8-10.8)
[2023-06-06 10:58] LABS: iSTAT Creatinine 0.7 mg/dl (0.6-1.3); iSTAT Hemoglobin 9.2 g/dl (12.0-16.0); iSTAT Ionized Calcium 1.17 mmol/l (1.12-1.32); iSTAT Potassium 3.5 mmol/L (3.3-5.0)
[2023-06-06 11:13] LABS: Partial Thromboplastin Time 27.6 Seconds (21.0-31.0); Prothrombin Time 11.3 Seconds (9.0-12.0)
[2023-06-06] MEDS ORDERED: TRANEXAMIC ACID / 0.7% NACL 1,000 MG/100 ML BAG IV ONE (11:15)
[2023-06-06 11:16] LABS: Albumin Globulin Ratio 1.1 (0.9-2); Albumin Level 3.6 gm/dl (3.4-5.0); BUN Creatinine Ratio 14.7 (10-20); Bilirubin,Total 0.6 mg/dl (0.2-1.0); Calcium 9.2 mg/dl (8.6-10.3); Creatinine Clr Calc Pharmacy 142.1 ml/min; Est GFR (African American) 133.2 ml/min; Est GFR (Non-African American) 114.9 ml/min; Globulin 3.4 gm/dl (2.5-4.0); Potassium 4.3 mmol/L (3.5-5.1)
[2023-06-06] MEDS ORDERED: OXYTOCIN 20 UNITS in LACTATED RINGER'S 1,000 ML IV STA (11:21)
[2023-06-06] MEDS ORDERED: CARBOPROST TROMETHAMINE 250 MCG/ML AMPUL IM STA (11:23)
[2023-06-06] MEDS ORDERED: ONDANSETRON INJ 2 MG/ML 2 ML VIAL IV STA (11:35)
[2023-06-06] MEDS ORDERED: fentaNYL citrate PF 100 MCG/2 ML VIAL IV PRN ×2 (11:35→13:01)
--- NOTE | 2023-06-06 11:58 | Ultrasound Report ---
US pelvic complete HISTORY: 33 years-old Female postgravid uterus. acute pelvic pain with vaginal bleeding COMPARISON: 04/19/2023 TECHNIQUE: Multiple real-time sonographic images of the pelvic structures were obtained transabdomina lly assessing grayscale appearance and color flow FINDINGS: The transvaginal component of the study was not obtained secondary to patient currently on pelvic res t. The ovaries are obscured by bowel gas. This measures 20 x 8 x 11 cm. Heterogeneous echogenic mater ial within the endometrial canal measures up to 11 x 5 x 8 cm. No color flow identified. Endometrium is thickened measuring up to 6 cm. IMPRESSION: Post gravid uterus with probable blood products within the endometrial cavity. No definit e retained products of conception identified on this study. Close follow-up recommended. ACT 112: Negative or not required by law. The above report was generated using voice recognition software. It may contain grammatical, syntax o r spelling errors. Electronically signed by: Abelardo Alves M.D. 06/06/2023 11:57 AM
--- NOTE | 2023-06-06 12:16 | History & Physical Report ---
Date of Service June 06, 2023 Assessment & Plan (1) hemorrhage: (2) History of section, low transverse: Plan Discussed with patient and partner, and father in room, regarding her presentation and findings. Unclear if etiology of bleeding is endometritis, wbc not that high, hard to tell by PE and she is currently taking abx. We do know there is likely clot and maybe devascularized tissue in fundus, large amount and with her continued bleeding, likely best to evacuate surgically. May need balloon tamponade, other uterotonics and monitoring of vs and labs. Patient aware bad complications can occur, like perforation of uterus, need of exploratory surgery, removal of uterus and injury to major structures. This will be guided by U/S. She is aware that myself and Dr. Parks may be involved. She is aware of all of this and consent reviewed and signed. NPO overnight. Agrees to OR and denies questions. Discussed risks, alternatives and complications to include but not limited to bleeding, infection, anesthesia, perforation of uterus requiring laparoscopy, injury to bowel, bladder, vessels, nerves, ureters, delayed complications, additional procedures or hospitalizations needed, deep venous thrombosis or pulmonary embolism. She desires to proceed and consent form signed. History of Present Illness Chief Complaint: heavy vaginal bleeding Primary Care Provider: Li Sullivan, DO 33yo now pod # 10 from repeat c/s with cc of heavy vaginal bleeding presenting to ER who I am asked to see on consult by Dr. Hargrove. She notes was in usual state of health and then this morning about 930am began to feel gushing of blood. Did not stop. Had passed a clot before but had not had this much bleeding and came to ER. ER Md called with patient with ok vital signs initial hgb of 10 but continued heavy bleeding. On my arrival, she was laying flat, shaking. Denied pain. Noted no fevers recently but did say about pod#4 presented to ER with fever and was treated with iv abx and then outpt course of abx that she is still taking for presumed endometritis. She is baby. Allergies Allergy/AdvReac Type Severity Reaction Status Date / Time cefaclor [From [facility]] Allergy Unknown Unknown Verified 06/01/23 14:07 Home Medications Medication Instructions Recorded Confirmed Type prenat.vits,iker,asi-[id number] 1 tab PO QAM 11/29/21 06/01/23 History doxylamine succinate 25 mg tablet 25 mg PO HS PRN Sleep 05/20/23 06/01/23 History (Unisom (doxylamine)) omeprazole 40 mg capsule,delayed 40 mg PO HS PRN Acid Reflux 05/20/23 06/01/23 History release hydroxyzine HCl 10 mg tablet 10 mg PO Q6H PRN itching #20 tabs 05/30/23 06/01/23 Rx ibuprofen 600 mg tablet 600 mg PO Q8H PRN pain #20 tabs 05/30/23 06/01/23 Rx oxycodone-acetaminophen 5 mg-325 1 tab PO Q6H PRN pain #20 tabs 05/30/23 06/01/23 Rx mg tablet (Percocet) cephalexin 500 mg capsule 500 mg PO BID 7 days #14 caps 05/31/23 06/01/23 Rx betamethasone dipropionate 0.05 % 1 applic topical BID #45 grams 06/01/23 06/01/23 Rx topical cream Patient History Medical History Anesthesia complication epidural did not work for last Chlamydia 10 yrs ago Failure of descent in labor, delivered, current hospitalization Gallstones GERD (gastroesophageal reflux disease) Group beta Strep positive History of chicken pox History of COVID-11 May 2022 > not hospitalized Preeclampsia ASA 81mg for this Pyelonephritis affecting resolved Surgical History S/P LASIK surgery S/P tonsillectomy S/P wisdom tooth extraction Status post section x1 Family History Grandfather (Paternal) Myocardial infarction Mother Alcohol abuse Denies family history of Ovarian cancer Prostate cancer Breast cancer Colorectal cancer Social History Smoking Status: Never smoker Second Hand Exposure: No; Do You Dip or Chew Tobacco: No; Hx Alcohol Use: No Hx Substance Use: No Preferred Language: Slovak Communication Ability: Effective Visual Impairment: No Limitations Hearing Ability: Normal Birth Attendant Required: No Beliefs That Will Affect Care: None marital status: marital status details: Shraddha Crespo (34) [phone]/ [phone] Current Living Situation: Spouse and Family Current Living Situation Comment: daughter 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 Spec placed and large clot about 250cc removed. cx difficult to palpate, no clot at os. US done and result in computer but essentially 10x 7 x4cm clot, non vascular at fundus. watched bleeding over about 30min and continues with bright red gushing of blood. Results & Data Vital Signs (Past 12 Hours) Vital Signs Temp Pulse Resp BP Pulse Ox O2 Del Method 06/06/23 12:00 93 H 19 127/75 98 06/06/23 11:45 82 19 134/77 99 06/06/23 11:40 90 19 128/80 100 06/06/23 11:37 142/81 H 06/06/23 11:37 97 H 17 135/88 100 06/06/23 11:35 90 26 H 100 06/06/23 11:30 97 H 20 127/85 100 06/06/23 11:25 92 H 14 130/85 100 06/06/23 11:20 106 H 20 123/89 100 06/06/23 11:15 99 H 14 151/88 H 100 06/06/23 11:10 96/83 L 06/06/23 11:10 106 H 20 100 06/06/23 11:05 89 19 125/86 100 06/06/23 11:00 91 H 24 128/72 99 06/06/23 10:56 101 H 20 101/82 100 06/06/23 10:55 100 H 23 115/76 100 06/06/23 10:43 80 17 118/74 99 06/06/23 10:38 100 Room Air 06/06/23 10:45 78 06/06/23 10:42 99.0 F 77 18 100 Room Air Coding Level of Care Code 37586 ER DEPT VISIT HIGH LVL 5 (57 - DECISION FOR SURGERY) Diagnoses hemorrhage O72.1 hemorrhage type: unspecified History of section, low transverse Z98.891 (1) hemorrhage hemorrhage type: unspecified Qualified Code(s): O72.1 - Other immediate hemorrhage
[2023-06-06] MEDS ORDERED: OXYTOCIN 10 UNITS/ML VIAL ONE (12:36)
[2023-06-06] MEDS ORDERED: MIDAZOLAM HCL 1 MG/ML 2ML VIAL ONE (12:39)
[2023-06-06] MEDS ORDERED: SUCCINYLCHOLINE CHLORIDE 20 MG/ML 10 ML VIAL IV ONE (12:39)
[2023-06-06] MEDS ORDERED: LIDOCAINE 2% 2 ML VIAL/AMP(20MG/ML) INFIL ONE (12:39)
[2023-06-06] MEDS ORDERED: ONDANSETRON INJ 2 MG/ML 2 ML VIAL ONE (12:39)
[2023-06-06] MEDS ORDERED: fentaNYL citrate PF 100 MCG/2 ML VIAL ONE (12:39)
[2023-06-06] MEDS ORDERED: PROPOFOL IV EMULSION 10 MG/ML 20 ML VIAL IV ONE (12:39)
[2023-06-06] MEDS ORDERED: DEXAMETHASONE SOD INJ 4 MG/ML VIAL ONE (12:39)
[2023-06-06] MEDS ORDERED: ROCURONIUM BROMIDE 10 MG/ML 5 ML VIAL IV ONE (12:39)
[2023-06-06] MEDS ORDERED: ceFAZolin 2000MG 2,000 MG/15 ML SYR IV ONE (12:54)
[2023-06-06] MEDS ORDERED: GENTAMICIN CONSULT ACTIVE PRN (12:59)
--- NOTE | 2023-06-06 13:00 | Anesthesiology Consultation ---
Date of Service June 06, 2023 Assessment & Plan Chart Review Chart Review: Acceptable Risk for Surgery and Patient NOT seen in Pre Admission Testing History Surgery Operation Date: 06/06/23 09:10 Proposed Procedures p Dilation and Evacuation, Curettage with Ultrasound Guidance - Josie Lopez MD, FACOG Height/Weight Height: 5 ft 9 in Weight: 92 kg Allergies Allergy/AdvReac Type Severity Reaction Status Date / Time [facility] [From [facility]] Allergy Unknown Unknown Verified 06/01/23 14:07 Medications Home Medications Medication Instructions Recorded Confirmed Last Taken prenat.vits,iker,xsd-[id number] 1 tab PO QAM 11/29/21 06/01/23 05/30/23 08:00 doxylamine succinate 25 mg tablet 25 mg PO HS PRN Sleep 05/20/23 06/01/23 05/26/23 21:00 (Unisom (doxylamine)) omeprazole 40 mg capsule,delayed 40 mg PO HS PRN Acid Reflux 05/20/23 06/01/23 05/27/23 14:00 release hydroxyzine HCl 10 mg tablet 10 mg PO Q6H PRN itching #20 tabs 05/30/23 06/01/23 05/31/23 07:00 ibuprofen 600 mg tablet 600 mg PO Q8H PRN pain #20 tabs 05/30/23 06/01/23 05/30/23 19:00 oxycodone-acetaminophen 5 mg-325 1 tab PO Q6H PRN pain #20 tabs 05/30/23 06/01/23 05/31/23 00:00 mg tablet (Percocet) cephalexin 500 mg capsule 500 mg PO BID 7 days #14 caps 05/31/23 06/01/23 Unknown betamethasone dipropionate 0.05 % 1 applic topical BID #45 grams 06/01/23 06/01/23 Unknown topical cream Active Medications Generic Name Dose Route Start Last Admin Trade Name Freq PRN Reason Stop Dose Admin Fentanyl Citrate 50 mcg 06/06/23 11:35 06/06/23 11:38 Fentanyl Citrate Pf 100 Mcg/2 Ml Vial IV 06/20/23 11:34 50 mcg Q15M PRN Administration Pain Oxytocin 20 units/ Lactated 1,002 mls @ 125 mls/hr 06/06/23 11:21 06/06/23 11:31 Ringer's IV 06/06/23 19:21 125 mls/hr .Q8H1M STA Administration Past Medical History Medical History Anesthesia complication epidural did not work for last Chlamydia 10 yrs ago Failure of descent in labor, delivered, current hospitalization Gallstones GERD (gastroesophageal reflux disease) Group beta Strep positive History of chicken pox History of COVID-11 May 2022 > not hospitalized Preeclampsia ASA 81mg for this Pyelonephritis affecting resolved Past Family History Family History Grandfather (Paternal) Myocardial infarction Mother Alcohol abuse Denies family history of Ovarian cancer Prostate cancer Breast cancer Colorectal cancer Past Surgical History Surgical History S/P LASIK surgery S/P tonsillectomy S/P wisdom tooth extraction Status post section x1 Social History Smoking Status: Never smoker Do You Dip or Chew Tobacco: No Hx Alcohol Use: No Alcohol type: beer, wine and hard liquor alcohol intake frequency: holidays/special occasions only Hx Substance Use: No substance use type: does not use Physical Exam Vital Signs Last Vital Signs Temp 37.2 C 06/06/23 10:42 Pulse 96 H 06/06/23 12:30 Resp 20 06/06/23 12:30 BP 131/80 06/06/23 12:15 Pulse Ox 97 06/06/23 12:30 O2 Del Method Room Air 06/06/23 12:32 Testing Laboratory Results 06/06/23 10:41 06/06/23 10:41 PT 11.3 Seconds (9.0-12.0) 06/06/23 10:41 INR 1.0 (0.9-1.1) 06/06/23 10:41 APTT 27.6 Seconds (21.0-31.0) 06/06/23 10:41 HCG, Quant 17 mIU/ml 06/06/23 10:41 Blood Type A Positive 06/06/23 10:41 Antibody Screen NEGATIVE 06/06/23 10:41 06/06/23 10:45 POC Glucose (other) 106 H 06/06/23 10:41 HCG, Quant 17
[2023-06-06] MEDS ORDERED: ONDANSETRON INJ 2 MG/ML 2 ML VIAL IV PRN ×2 (13:01→15:06)
[2023-06-06] MEDS ORDERED: ATROPINE SULFATE 0.1 MG/ML 10ML SYR IV PRN (13:01)
[2023-06-06] MEDS ORDERED: ePHEDrine sulfate 50 MG/ML AMP IV PRN (13:01)
[2023-06-06] MEDS ORDERED: HYDROmorphone INJ 2 MG/ML SYR/VIAL IV PRN (13:01)
[2023-06-06] MEDS: GENTAMICIN SULFATE 460 MG in DEXTROSE 5% 100 ML IV STA ×2 (13:14→13:25)
--- NOTE | 2023-06-06 13:43 | Post Operative Brief Note ---
PG Immediate Post Op with CF Date of Surgery June 06, 2023 Pre & Post Diagnosis Operation Date: 06/06/23 09:10 Pre-Op Diagnosis: Delayed Hemorrhage Status post section I identified the patient and participated in the time-out.: Yes Procedure Operation Date: 06/06/23 09:10 Actual Procedures p Dilation and Evacuation, Curettage with Ultrasound Guidance(Not Applicable) - Josie Lopez MD, FACOG Surgeon Josie Lopez MD, FACOG Quality Controller Kasey Estimated Blood Loss 50 Findings Consistent with Post-Op Diagnosis (uterus enlarged with clot, tissue, palpable firm and about 15wk postprocedure. large evacuation of clot and tissue) Fluids 600cc Specimens Specimen Description: A. products of conception Anesthesia Type General Complications none Disposition Accompanied Patient To Recovery: No Disposition: Recovery Room
--- NOTE | 2023-06-06 13:58 | Anesthesiology Progress Note ---
Date of Service June 06, 2023 Anesthesia Post Procedure Vital Signs Vital Signs: Temp Pulse Pulse Resp BP BP Pulse Ox 06/06/23 12:54 36.9 C 104 H 18 130/81 97 06/06/23 12:32 06/06/23 12:30 96 H 20 97 06/06/23 12:15 104 H 15 131/80 99 06/06/23 12:00 93 H 19 127/75 98 06/06/23 11:45 82 19 134/77 99 06/06/23 11:40 90 19 128/80 100 06/06/23 11:37 142/81 H 06/06/23 11:37 97 H 17 135/88 100 06/06/23 11:35 90 26 H 100 06/06/23 11:30 97 H 20 127/85 100 06/06/23 11:25 92 H 14 130/85 100 06/06/23 11:20 106 H 20 123/89 100 06/06/23 11:15 99 H 14 151/88 H 100 06/06/23 11:10 96/83 L 06/06/23 11:10 106 H 20 100 06/06/23 11:05 89 19 125/86 100 06/06/23 11:00 91 H 24 128/72 99 06/06/23 10:56 101 H 20 101/82 100 06/06/23 10:55 100 H 23 115/76 100 06/06/23 10:43 80 17 118/74 99 06/06/23 10:38 100 06/06/23 10:45 78 06/06/23 10:42 37.2 C 77 18 100 O2 Del Method 06/06/23 12:54 Room Air 06/06/23 12:32 Room Air 06/06/23 12:30 06/06/23 12:15 06/06/23 12:00 06/06/23 11:45 06/06/23 11:40 06/06/23 11:37 06/06/23 11:37 06/06/23 11:35 06/06/23 11:30 06/06/23 11:25 06/06/23 11:20 06/06/23 11:15 06/06/23 11:10 06/06/23 11:10 06/06/23 11:05 06/06/23 11:00 06/06/23 10:56 06/06/23 10:55 06/06/23 10:43 06/06/23 10:38 Room Air 06/06/23 10:45 06/06/23 10:42 Room Air Transfer of Care Handoff Completed per policy Notes Mental Status: alert / awake / arousable Patient Amnestic to Procedure: Yes Nausea / Vomiting: adequately controlled Pain: adequately controlled Airway Patency, RR, SpO2: stable & adequate BP & HR: stable & adequate Hydration State: stable & adequate Anesthetic Complications: no major complications apparent and Pt Satisfied with anesthetic care
--- NOTE | 2023-06-06 14:21 | Electrocardiogram Report ---
Test Reason : Blood Pressure : / mmHG Vent. Rate : 082 BPM Atrial Rate : 082 BPM P-R Int : 132 ms QRS Dur : 084 ms QT Int : 374 ms P-R-T Axes : 059 027 053 degrees QTc Int : 436 ms Normal sinus rhythm Normal ECG No previous ECGs available Confirmed by Madhav Bales ([id number]) on 06/06/2023 2:21:04 PM Referred By: Josie Lopez Confirmed By:Madhav Bales
--- NOTE | 2023-06-06 14:50 | Anesthesiology Progress Note ---
Date of Service June 06, 2023 Anesthesia Post Procedure Vital Signs Vital Signs: Temp Pulse Pulse Pulse Resp BP BP 06/06/23 14:45 37.6 C H 79 16 120/75 06/06/23 14:35 84 16 125/85 06/06/23 14:25 91 H 20 130/77 06/06/23 14:15 80 17 117/70 06/06/23 14:05 92 H 18 118/76 06/06/23 13:55 36.5 C 108 H 18 121/80 06/06/23 12:54 36.9 C 104 H 18 130/81 06/06/23 12:32 06/06/23 12:30 96 H 20 06/06/23 12:15 104 H 15 131/80 06/06/23 12:00 93 H 19 127/75 06/06/23 11:45 82 19 134/77 06/06/23 11:40 90 19 128/80 06/06/23 11:37 142/81 H 06/06/23 11:37 97 H 17 135/88 06/06/23 11:35 90 26 H 06/06/23 11:30 97 H 20 127/85 06/06/23 11:25 92 H 14 130/85 06/06/23 11:20 106 H 20 123/89 06/06/23 11:15 99 H 14 151/88 H 06/06/23 11:10 96/83 L 06/06/23 11:10 106 H 20 06/06/23 11:05 89 19 125/86 06/06/23 11:00 91 H 24 128/72 06/06/23 10:56 101 H 20 101/82 06/06/23 10:55 100 H 23 115/76 06/06/23 10:43 80 17 118/74 06/06/23 10:38 06/06/23 10:45 78 06/06/23 10:42 37.2 C 77 18 Pulse Ox O2 Del Method O2 Flow Rate 06/06/23 14:45 97 Room Air 06/06/23 14:35 96 Room Air 06/06/23 14:25 98 Room Air 06/06/23 14:15 100 Oxymask 4 06/06/23 14:05 100 Oxymask 4 06/06/23 13:55 100 Oxymask 6 06/06/23 12:54 97 Room Air 06/06/23 12:32 Room Air 06/06/23 12:30 97 06/06/23 12:15 99 06/06/23 12:00 98 06/06/23 11:45 99 06/06/23 11:40 100 06/06/23 11:37 06/06/23 11:37 100 06/06/23 11:35 100 06/06/23 11:30 100 06/06/23 11:25 100 06/06/23 11:20 100 06/06/23 11:15 100 06/06/23 11:10 06/06/23 11:10 100 06/06/23 11:05 100 06/06/23 11:00 99 06/06/23 10:56 100 06/06/23 10:55 100 06/06/23 10:43 99 06/06/23 10:38 100 Room Air 06/06/23 10:45 06/06/23 10:42 100 Room Air Transfer of Care Handoff Completed per policy Notes Mental Status: alert / awake / arousable and participated in evaluation Patient Amnestic to Procedure: Yes Nausea / Vomiting: adequately controlled Pain: adequately controlled Airway Patency, RR, SpO2: stable & adequate BP & HR: stable & adequate Hydration State: stable & adequate Anesthetic Complications: no major complications apparent
[2023-06-06] MEDS ORDERED: OXYTOCIN 20 UNITS in LACTATED RINGER'S 1,000 ML IV SCH (15:06)
[2023-06-06] MEDS ORDERED: ACETAMINOPHEN 325 MG TAB PO PRN (15:06)
[2023-06-06] MEDS: oxyCODONE/ACETAMINOPHEN 5mg/325mg TAB PO PRN ×2 (17:07→22:30)
--- NOTE | 2023-06-06 19:11 | Operative Report ---
PG Post Operative Report Pre & Post Diagnosis Operation Date: 06/06/23 09:10 Pre-Op Diagnosis: Delayed Post hemorrhage History of section Post-Op Diagnosis: Delayed Post hemorrhage History of section I identified the patient and participated in the time-out.: Yes Procedure Operation Date: 06/06/23 09:10 Actual Procedures p Dilation and Evacuation, Curettage with Ultrasound Guidance(Not Applicable) - Josie Lopez MD, FACOG Surgeon Josie Lopez MD, FACOG Dairy Frozen Manager Kasey Estimated Blood Loss 50 Findings Consistent with Post-Op Diagnosis (uterus enlarged about 20wk size preprocedure, palpable and firm and about 15wk postprocedure. large evacuation of clot and tissue that was seen via u/s. ) Specimens products of conception. ? placental fragment Drains none Anesthesia Type General Complications none Disposition Accompanied Patient To Recovery: No Disposition: Recovery Room Indications 33yo pod #10 from repeat section with hemorrhage and u/s findings consistent with retained clot or tissue avascular for recommended procedure. Uterotonic agents were trialed in ER but continued to trickle bright red blood. Consent reviewed and pt agreed. Description of Procedure The patient was taken to the operating room and identified. After adequate general anesthesia was obtained, the patient was placed in the dorsolithotomy position and prepped and draped in usual sterile fashion. An exam under anesthesia was performed with the findings noted above. The cervix was visualized and grasped on the anterior lip with allis clamp. The cervix was already dilated to Hegar dilators 21. The suction curette was gently placed through the cervical os into the uterine cavity while watching advancement of device on u/s. The uterus was cleared of its contents in multiple passes and large amount of clot and possible tissue removed. Via u/s area at fundus that was thickened remained and banjo curette gently advance into cavity and gentle curettage took place and with suction curette in final pass large piece of organized clot vs. placental tissue was removed. IV pitocin had been infusing. At this point the procedure was terminated. All instruments were removed. Bleeding was reasonable. The patient was returned to the supine position and awoken from her anesthesia and transferred to the recovery room in stable condition. I attest to the content of the Intraoperative Record and any orders documented therein. Any exceptions are noted below. OB Procedure Charges 50965 PP Curettage (D&E)
--- NOTE | 2023-06-06 19:29 | Communication Note ---
Date of Service: June 06, 2023 visited pt to review finding at surgery and check on her. she was eating, sitting upright and feels well. she notes min bleeding ff 3down nt. will cont with iv abx. check hgb now and compare with cbc in am. monitor for bleeding. risk of scarring in uterus, vs. cont retained tissue and subsequent bleeding reviewed. overall seems stable currently. answered ?s to the best of my ability.
[2023-06-06 19:38] LABS: Hematocrit (blood only) 24.4 % (37.0-47.0); Hemoglobin 8.1 g/dl (12.0-16.0)
[2023-06-06] MEDS ORDERED: BETAMETHASONE DIP AUG (DIPROLENE) 0.05% CR 15 GM TUBE EXT SCH (21:00)
[2023-06-06] MEDS: 300mg Q8H IV SCH (21:33)
[2023-06-06] MEDS: 600mg Q8H IV SCH (21:52)
[2023-06-06] MEDS ORDERED: CLINDAMYCIN/D5W 600 MG/50 ML BAG IV SCH (22:00)
[2023-06-06] MEDS ORDERED: CLINDAMYCIN/D5W 900 MG/50 ML BAG IV SCH (22:00)
[2023-06-07] MEDS: 300mg Q8H IV SCH (05:45)
[2023-06-07] MEDS: oxyCODONE/ACETAMINOPHEN 5mg/325mg TAB PO PRN ×2 (05:45→12:58)
[2023-06-07] MEDS: 600mg Q8H IV SCH (06:08)
[2023-06-07 07:53] LABS: BUN Creatinine Ratio 12.5 (10-20); Calcium 8.4 mg/dl (8.6-10.3); Creatinine Clr Calc Pharmacy 134.2 ml/min; Est GFR (African American) 127.5 ml/min; Potassium 3.9 mmol/L (3.5-5.1)
--- NOTE | 2023-06-07 07:57 | Gynecologic Progress Note ---
Date of Service June 07, 2023 Assessment & Plan (1) hemorrhage: (2) History of section, low transverse: Plan Doing well postop. no evidence of ongoing bleeding. iv abx are completed. will plan course of po outpt abx but will first monitor fever curve until 24hr postsurgery and if stable, plan dc home. pt appropriately nervous, reviewed parameters to call and we can see if office more regularly. cbc pending this am. aware of hgb last pm, which does reflect her losses as I saw them in ER and during ER exam and just prior to surgery. She is aware that Dr. Rico is coming in and will check on her this afternoon and make further decisions. Admission and Anticipated Discharge Date Admission Date: June 06, 2023 Subjective pt doing well this am. no bleeding. eating, voiding, ambulating without issue. no fever or chills. appropriately anxious about events and them recurring. Review of Systems Constitutional: as per Subjective / HPI Physical Exam Constitutional: WD/WN, vitals as above Respiratory: normal respiratory effort, lungs clear to auscultation Cardiovascular: Rate/Rhythm: regular rate and regular rhythm Gastrointestinal (Abdomen): soft ff 3down nt Musculoskeletal: no edema nontender calves Neurologic: grossly normal Psychiatric: A+Ox3, euthymic affect Results & Data Vital Signs (Past 12 Hours) Vital Signs Temp Pulse Resp BP Pulse Ox O2 Del Method 06/07/23 01:51 98.4 F 64 18 102/62 97 Room Air 06/06/23 22:05 98.6 F 77 18 104/65 95 Room Air PG Care Time/CCT Total # of Minutes Spent Total Time Spent with Patient: Total time spent is greater than 50% in coordination of care (as documented) at patient's floor/unit and/or counseling patient: Coding Level of Care Code 36513 INT INP/OBS CARE 1/40MIN Diagnoses hemorrhage O72.1 hemorrhage type: unspecified History of section, low transverse Z98.891 (1) hemorrhage hemorrhage type: unspecified Qualified Code(s): O72.1 - Other immediate hemorrhage
[2023-06-07 08:00] LABS: Basophils # (auto) 0.02 K/uL (0-0.2); Basophils % (auto) 0.1 %; Eosinophils # (auto) 0.02 K/uL (0-0.50); Eosinophils % (auto) 0.1 %; Hematocrit (blood only) 22.5 % (37.0-47.0); Hemoglobin 7.5 g/dl (12.0-16.0); Immature Granulocytes % (auto) 1.4 %; Lymphocytes # (auto) 2.49 K/uL (1.2-3.4); Mean Corpuscular Hemoglobin 29.9 pg (25.0-34.0); Mean Corpuscular Hgb Conc 33.3 g/dL (32.0-36.0); Mean Corpuscular Volume 89.6 fL (80.0-100.0); Mean Platelet Volume 10.2 fL (9.4-12.4); Monocytes # (auto) 1.15 K/uL (0.11-0.59); Monocytes % (auto) 8.3 %; Neutrophils # (auto) 9.92 K/uL (1.40-6.50); Neutrophils % (auto) 72.1 %; Platelet Count 325 K/uL (130-400); RDW Coefficient of Variation 13.4 % (11.5-14.5); RDW Standard Deviation 44.1 fL (36.4-46.3); Red Blood Count 2.51 M/uL (4.20-5.40)
[2023-06-07 08:33] LABS: RBC Morphology Unremarkable
[2023-06-07] MEDS ORDERED: PRENATAL VITAMIN 1 TAB PO SCH (09:00)
[2023-06-07] MEDS ORDERED: AMOXICILLIN/CLAVULANATE 875 MG TAB PO SCH (17:00)
--- NOTE | 2023-06-08 19:01 | Discharge Summary ---
Date of Service Date of admission: June 06, 2023 Date of discharge: June 07, 2023 Admission HPI Per Admitting Provider 33yo now pod # 10 from repeat c/s with cc of heavy vaginal bleeding presenting to ER who I am asked to see on consult by Dr. Hargrove. She notes was in usual state of health and then this morning about 930am began to feel gushing of blood. Did not stop. Had passed a clot before but had not had this much bleeding and came to ER. ER Md called with patient with ok vital signs initial hgb of 10 but continued heavy bleeding. On my arrival, she was laying flat, shaking. Denied pain. Noted no fevers recently but did say about pod#4 presented to ER with fever and was treated with iv abx and then outpt course of abx that she is still taking for presumed endometritis. She is baby. Discharge Data Consultations 06/06/23 11:08 Consult Obstetrics Stat Procedures Performed Operation Date: 06/06/23 09:10 Actual Procedures p Dilation and Evacuation, Curettage with Ultrasound Guidance(Not Applicable) - Josie Lopez MD, [facility] Course (1) hemorrhage: (2) History of section, low transverse: (3) Anemia: Plan Evaluation in ER including exams and bedside u/s concerning for signficant clot with ongoing bleeding requring surgery for evacuation. Patient taken to OR for above procedure. Postop hgb 7.5. Given iv pitocin postop and bleeding markedly decreased, fundus palpably firm. Given iv and then po antibiotics course due to possible risk that infection was contributing to her delayed hemorrhage. She remained afebrile and was deemed stable for discharge by doctor educational technologist on pod #1. Pathology pending. Course of po antibiotics sent to her pharmacy, outpatient instructions given, followup in one week recommended. Coding Level of Care Code None Diagnoses hemorrhage O72.1 hemorrhage type: unspecified History of section, low transverse Z98.891 Anemia D64.9 Anemia type: unspecified type
== END 2023-06-07 18:54 | disposition home or self-care (01) ==
LOC: ED 10:33 → ASU 12:32 → 4E1 12:32

== ENCOUNTER 2023-08-29 00:16 | Observation (INO) ==
[2023-08-29] MEDS ORDERED: FAMOTIDINE 20MG IV PUSH 20 MG/5 ML SYR IV STA (00:32)
[2023-08-29] MEDS ORDERED: ACETAMINOPHEN 1,000 MG/100 ML VIAL IV STA (00:32)
[2023-08-29] MEDS ORDERED: SODIUM CHLORIDE 0.9% 1,000 ML IV ONE (00:32)
[2023-08-29] MEDS ORDERED: ONDANSETRON INJ 2 MG/ML 2 ML VIAL IV STA (00:32)
--- NOTE | 2023-08-29 00:38 | Emergency Department Note ---
History of Present Illness General Chief complaint: Abdominal Pain Stated complaint: SEVERE ABDOMINAL PAIN FOR 24HRS Time Seen by Provider: 08/29/23 00:26 History of Present Illness Maximum Pain Intensity: 8 This 33-year-old female presents to the ER complaining of epigastric right upper quadrant pain for the past day. She has known gallstones. She complains of nausea and a headache. She gave 3 months ago. Patient denies fever, chills, cough, congestion, diarrhea, urinary symptoms, chest pain. She states is hard to take a deep breath secondary to the pain. Home Medications Medication Instructions Recorded Confirmed Type prenat.vits,iker,drr-rlps-ectog 1 tab PO QAM 11/29/21 07/14/23 History cetirizine 10 mg tablet (Zyrtec) 10 mg PO DAILY PRN 07/14/23 07/14/23 History Allergies Allergy/AdvReac Type Severity Reaction Status Date / Time c[facility]lor [[facility]] Allergy Unknown Unknown Verified 07/14/23 10:35 Past Med/Surg History Medical History Encounter for pre-operative examination Anesthesia complication epidural did not work for last Gallstones GERD (gastroesophageal reflux disease) History of COVID-11 May 2022 > not hospitalized Supervision of normal intrauterine in multigravida Preeclampsia ASA 81mg for this Failure of descent in labor, delivered, current hospitalization Group beta Strep positive Pyelonephritis affecting resolved History of chicken pox Chlamydia 10 yrs ago Surgical History Status post section x1 S/P LASIK surgery S/P wisdom tooth extraction S/P tonsillectomy Family History Grandfather (Paternal) Myocardial infarction Mother Alcohol abuse Denies family history of Ovarian cancer Prostate cancer Breast cancer Colorectal cancer Social History Smoking Status: Never smoker Second Hand Exposure: No; Do You Dip or Chew Tobacco: No; Hx Alcohol Use: No Hx Substance Use: No Preferred Language: Italian Communication Ability: Effective Visual Impairment: No Limitations Hearing Ability: Normal Broach Operator Required: No Beliefs That Will Affect Care: None marital status: marital status details: Shraddha Crespo (34) [phone]/ [phone] Current Living Situation: Spouse Current Living Situation Comment: daughter 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[employer] 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 Safe at Home: Yes Physical Activity Frequency: 3-4 Times per Week Assistive Devices: None Review of Systems A total of 10 systems reviewed and were otherwise negative Physical Exam Vital Signs Vital Signs - 24 hr 08/29/23 00:19 08/29/23 02:16 Temperature 36.5 C Temperature Source Temporal Artery Scan Pulse Rate 74 Pulse Rate [Finger] 73 Respiratory Rate 20 16 Respiratory Effort / Characteristics Non-Labored Spontaneous Respiratory Depth Normal Blood Pressure 121/75 Blood Pressure [Right Arm] 115/82 Blood Pressure Mean 90 Blood Pressure Mean [Right Arm] 93 Pulse Oximetry 97 99 Oxygen Delivery Method Room Air Sepsis New/Unexplained Change in Mental Status N/A Sepsis Action Taken by Nursing No Action Required VITALS: Vitals are noted on the nurse's note and reviewed by myself. Vital signs stable. GENERAL: Pleasant patient, in no acute distress, nondiaphoretic, well-developed well-nourished. SKIN: The skin was without rashes, erythema, edema, or bruising. There is no tenting of the skin. Capillary reflex less than 2 seconds. HEAD: Normocephalic atraumatic. EARS: External auditory canals clear, EYES: Pupils equal round and reactive to light and accommodation. Conjunctivae without injection, sclerae without icterus. Extraocular movements intact. NOSE: Patent, turbinates without inflammation or discharge. MOUTH: Mucous membranes moist. Pharynx without erythema or exudate. Uvula midline. Airway patent. Tongue does not deviate. NECK: Supple without nuchal rigidity. No lymphadenopathy. No thyromegaly. Cervical spine is nontender. No JVD. HEART: Regular rate and rhythm LUNGS: Clear to auscultation bilaterally without wheezes, rales or rhonchi. No retractions or accessory muscle use. ABDOMEN: Positive bowel sounds x 4. Normal tympanic percussion. Soft, tender epigastric right upper quadrant, without masses or organomegaly. No guarding or rebound tenderness. No CVA tenderness MUSCULOSKELETAL: No muscle atrophy, erythema, or edema noted. NEURO: Patient was alert and oriented to person place and time. Normal sensation to light and sharp touch. No focal neurological deficits. Course Administered Medications Piperacillin Sod/Tazobactam Sod (Zosyn) 4.5 gm in 100 mls @ 200 mls/hr IV NOW ONE Stop: 08/29/23 02:27 Last Admin: 08/29/23 02:11 Dose: 200 mls/hr Documented By: VALERIANO Discontinued Medications Sodium Chloride (Nss) 1,000 mls @ 999 mls/hr IV .Q1H1M ONE Stop: 08/29/23 01:32 Last Infusion: 08/29/23 01:56 Dose: Infused Documented By: Admin: 08/29/23 00:51 Dose: 999 mls/hr Documented By: VALERIANO Acetaminophen (Ofirmev) 1,000 mg in 100 mls @ 400 mls/hr IV NOW STA Stop: 08/29/23 00:46 Last Infusion: 08/29/23 01:50 Dose: Infused Documented By: Admin: 08/29/23 00:51 Dose: 400 mls/hr Documented By: VALERIANO Famotidine (Pepcid 20mg Iv Push) 20 mg in 5 mls @ 2.5 mls/min IV NOW STA Stop: 08/29/23 00:33 Last Admin: 08/29/23 00:51 Dose: 2.5 mls/min Documented By: VALERIANO Ondansetron HCl (Ondansetron Inj 2 Mg/Ml 2 Ml Vial) 4 mg IV NOW STA Stop: 08/29/23 00:33 Last Admin: 08/29/23 00:51 Dose: 4 mg Documented By: VALERIANO Medical Decision Making Medical Records Attestation: I reviewed the patient's medical records. Home Medications Current Medication List: was personally reviewed by in Laboratory Data Attestation: I reviewed the patient's lab results. 08/29/23 00:27 08/29/23 00:27 Lab Results 08/29/23 08/29/23 Range/Units 00:27 00:47 WBC 6.86 (4.8-10.8) K/ul RBC 5.32 (4.20-5.40) M/uL Hgb 13.2 (12.0-16.0) g/dl Hct 41.6 (37.0-47.0) % MCV 78.2 L (80.0-100.0) fL MCH 24.8 L (25.0-34.0) pg MCHC 31.7 L (32.0-36.0) g/dL RDW Std Deviation 45.3 (36.4-46.3) fL RDW Coeff of Ezekiel 16.2 H (11.5-14.5) % Plt Count 287 (130-400) K/uL MPV 11.3 (9.4-12.4) fL Immature Gran % (Auto) 0.1 % Neut % (Auto) 50.5 % Lymph % (Auto) 31.3 % [place] % (Auto) 15.9 % Eos % (Auto) 1.2 % Baso % (Auto) 1.0 % Neut # (Auto) 3.46 (1.40-6.50) K/uL Lymph # (Auto) 2.15 (1.20-3.40) K/uL [place] # (Auto) 1.09 H (0.11-0.59) K/uL Eos # (Auto) 0.08 (0.00-0.50) K/uL Baso # (Auto) 0.07 (0.00-0.20) K/uL Immature Gran # (Auto) 0.01 (0.01-0.20) K/uL Sodium 139 (136-145) mmol/L Potassium 3.6 (3.5-5.1) mmol/L Chloride 104 (98-107) mmol/L Carbon Dioxide 27 (21-32) mmol/L Anion Gap 8 (3-11) BUN 11 (6-23) mg/dl Creatinine 0.83 (0.6-1.2) mg/dl Est Cr Clr Drug Dosing 112.3 ml/min Est GFR ( Amer) 107.4 ml/min Est GFR (Non-Af Amer) 92.7 ml/min BUN/Creatinine Ratio 13.3 (10-20) Glucose 107 H (70-99(Fasting)) mg/dl Calcium 9.5 (8.6-10.3) mg/dl Total Bilirubin 2.9 H (0.2-1.0) mg/dl AST 592 H (13-39) U/L ALT 553 H (7-52) U/L Alkaline Phosphatase 201 H (34-104) U/L Total Protein 8.0 (6.0-8.3) gm/dl Albumin 4.6 (3.4-5.0) gm/dl Globulin 3.4 (2.5-4.0) gm/dl Albumin/Globulin Ratio 1.4 (0.9-2) Lipase 29 (11-82) U/L HCG, Qual Negative (Negative) Urine Color Dark Yellow Urine Appearance Cloudy A (Clear) Urine pH 6.0 (4.5-7.5) Ur Specific [place] 1.026 (1.000-1.030) Urine Protein Negative (Negative) Urine Glucose (UA) Negative (Negative) Urine Ketones Trace H (Negative) Urine Blood Negative (Negative) Urine Nitrite Negative (Negative) Urine Bilirubin 2+ H (Negative) Urine Urobilinogen Negative (Negative) Ur Leukocyte Esterase 2+ H (Negative) Urine WBC (Auto) >30 H (0-5) /hpf Urine RBC (Auto) 0-4 (0-4) /hpf U Hyaline Cast (Auto) 0 (0-5) /lpf U Epithel Cells (Auto) >30 H (0-5) /lpf Urine Bacteria (Auto) 1+ H (Negative) Urine Crystals Not Reportable Calcium Oxalate Crystal Present A (None Prsent) Imaging Data Attestation: I personally reviewed and interpreted this imaging study as follows: Radiologist's Impression: Gallbladder Ultrasound 08/29/23 00:27 US gallbladder CLINICAL HISTORY: ruq pain TECHNIQUE: Multiple real-time sonographic images of the right upper quadrant were obtained. Comparison: Comparison is made to gallbladder ultrasound 05/11/2023 FINDINGS: The liver is diffusely echogenic in appearance with poor ultrasound penetration, with normal contour, which is consistent with fatty infiltration. There is suggestion of dilated intrahepatic bile ducts. Gallbladder wall is variable in thickness measuring between 2 and 5 mm of thickening adjacent pericholecystic fluid. Numerous layering stones are seen. Staples's sign cannot be assessed as the patient received pain medication. The common duct measures 10.3 cm in diameter at the level of the hepatic artery. There is a probable stone within the common bile duct measuring 6 mm in diameter at the level of the pancreatic head. The visualized portions of the pancreas appear normal. The right kidney shows normal echogenicity, cortical thickness and renal contour. The right kidney shows no evidence of hydronephrosis or mass. No ascites or free fluid is seen in Landrum's pouch. IMPRESSION: Choledocholithiasis with common bile duct dilation. Cholelithiasis with questionable focal gallbladder wall thickening, cholecystitis cannot be entirely excluded. ACT 112: Negative or not required by law. Electronically signed by: Lowell Mcqueen M.D. 08/29/2023 2:03 AM MDM Narrative Prior records/ancillary studies reviewed. Triage Nursing notes reviewed. Additional history obtained from nursing. The patient's history was concerning for abdominal pain. Differential diagnosis: Etiologies such as appendicitis, diverticulitis, PUD, biliary pathology, UTI, pancreatitis, obstruction, mesenteric ischemia, aortic pathology, infections, inflammatory bowel disease, renal colic, as well as others were entertained. Physical examination findings: As above. ER treatment provided: An order was placed for continuous cardiac monitoring. The monitor shows a rate of 60-100 with a sinus rhythm per my Independent interpretation. IV fluids, Zofran, Tylenol, Pepcid were ordered Zosyn and morphine were ordered On reassessment the patient felt better. Diagnostics interpreted by me: ECG: Ordered for upper abdominal pain EKG: Normal sinus, normal intervals, no acute ST-T wave changes. Impression normal sinus rhythm independently interpreted by myself I think arrhythmia is unlikely. EKG shows normal sinus rhythm with no interval abnormalities such as QT prolongation or WPW. There are no findings to suggest Brugada syndrome. Cardiac monitoring in the emergency department reveals no tachycardic or bradycardic dysrhythmia. Hypertrophic cardiomyopathy was considered but there are no clear historical elements pointing toward this. EKG is not suggestive. The QRS voltage is not extremely large and there are no suggestive Q waves. The labs Independently Interpreted by myself revealed elevated LFTs and bilirubin. No worrisome leukocytosis Imaging studies: Chest x-ray with no acute consolidation, pneumothorax or free air per my independent interpretation Ultrasound concerning for cholelithiasis with choledocholithiasis HEART SCORE: Hx: high/mod/low suspicion: 0 ECG: ST depression/nonspecific changes/normal: 0 Age: Greater than 65/45-64/less than 45: 0 Risk factors: (Hypertension, hyperlipidemia, diabetes, coronary disease, tobacco use, cocaine use): 0 Troponin: Greater than 2 times normal limits/1-2 times normal limits/normal: 0 Total: 0 Consultation: A consultation was placed with the hospitalist. The case was discussed and diagnostics were reviewed. The patient was evaluated in the ER for further treatment. Exam and history seem consistent with cholelithiasis with choledocholithiasis. Patient was started on antibiotics. Medicine was consulted and case was discussed. Patient is agreeable to treatment plan of admission. Patient was afebrile nontoxic. No white count. Pain was improved with medication as above. By the evaluation outlined above emergent etiologies such as appendicitis, diverticulitis, PUD, UTI, pancreatitis, obstruction, mesenteric ischemia, aortic pathology, inflammatory bowel disease, renal colic, as well as others were deemed relatively unlikely. The pt informed about the findings as listed above. All questions were answered and pleased with the treatment. The chart was completed utilizing [employer] voice recognition software. Grammatical errors, random word insertions, pronoun errors, and incomplete sentences are an occassional consequence of this system due to software limitations, ambient noise, and hardware issues. Any formal questions or concerns about the content, text, or information contained within the body of this dictation should be directly addressed to the physician assistant business manager for clarification. Impression & Plan Cholelithiasis with choledocholithiasis Discharge Plan Visit Data Chief Complaint: Abdominal Pain Stated Complaint: SEVERE ABDOMINAL PAIN FOR 24HRS ED Provider: Verna Disla ED Midlevel Provider: Peyton Randolph Discharge Problem: Cholelithiasis with choledocholithiasis Patient Disposition: Admitted As Inpatient Condition: Good Forms Stand Alone Forms: [place] Pel[employer] Prescriptions Prescriptions: No Action cetirizine [Zyrtec] 10 mg tablet 10 mg PO DAILY PRN prenat.vits,iker,ugb-ured-hgehu Tablet 1 tab PO QAM Referrals Referrals: Li Sullivan DO [Primary Care Provider] -
[2023-08-29 01:09] LABS: Basophils # (auto) 0.07 K/uL (0.00-0.20); Eosinophils # (auto) 0.08 K/uL (0.00-0.50); Eosinophils % (auto) 1.2 %; Hematocrit (blood only) 41.6 % (37.0-47.0); Hemoglobin 13.2 g/dl (12.0-16.0); Immature Granulocytes # (auto) 0.01 K/uL (0.01-0.20); Immature Granulocytes % (auto) 0.1 %; Lymphocytes # (auto) 2.15 K/uL (1.20-3.40); Lymphocytes % (auto) 31.3 %; Mean Corpuscular Hemoglobin 24.8 pg (25.0-34.0); Mean Corpuscular Hgb Conc 31.7 g/dL (32.0-36.0); Mean Corpuscular Volume 78.2 fL (80.0-100.0); Mean Platelet Volume 11.3 fL (9.4-12.4); Monocytes # (auto) 1.09 K/uL (0.11-0.59); Monocytes % (auto) 15.9 %; Neutrophils # (auto) 3.46 K/uL (1.40-6.50); Neutrophils % (auto) 50.5 %; Platelet Count 287 K/uL (130-400); RDW Coefficient of Variation 16.2 % (11.5-14.5); RDW Standard Deviation 45.3 fL (36.4-46.3); Red Blood Count 5.32 M/uL (4.20-5.40); White Blood Count 6.86 K/ul (4.8-10.8)
[2023-08-29 01:10] LABS: Appearance Urine Cloudy (Clear); Bacteria Urine Automated 1+ (Negative); Blood Urine Negative (Negative); Color Urine Dark Yellow; Epithelial Cell Urine Auto >30 /lpf (0-5); Glucose Urine UA Negative (Negative); Ketones Urine Trace (Negative); Leukocyte Esterase Urine 2+ (Negative); Nitrite Urine Negative (Negative); Protein Urine Negative (Negative); RBC Urine Automated 0-4 /hpf (0-4); Specific Gravity Urine 1.026 (1.000-1.030); Urobilinogen Urine Negative (Negative); WBC Urine Automated >30 /hpf (0-5)
[2023-08-29 01:21] LABS: BUN Creatinine Ratio 13.3 (10-20); Calcium 9.5 mg/dl (8.6-10.3); Creatinine Clr Calc Pharmacy 112.3 ml/min; Est GFR (African American) 107.4 ml/min; Est GFR (Non-African American) 92.7 ml/min; Potassium 3.6 mmol/L (3.5-5.1)
[2023-08-29 01:22] LABS: Bilirubin Urine 2+ (Negative)
[2023-08-29 01:33] LABS: Pregnancy Test, Serum Negative (Negative)
[2023-08-29 01:35] LABS: Calcium Oxalate Crystals Urine Present (None Prsent); Cast Urine Automated 0 /lpf (0-5)
[2023-08-29 01:38] LABS: Albumin Globulin Ratio 1.4 (0.9-2); Albumin Level 4.6 gm/dl (3.4-5.0); Bilirubin,Total 2.9 mg/dl (0.2-1.0); Globulin 3.4 gm/dl (2.5-4.0)
[2023-08-29] MEDS ORDERED: PIPERACILLIN/TAZOBACTAM 4.5 GM/100 ML BAG IV ONE (01:58)
--- NOTE | 2023-08-29 02:05 | Ultrasound Report ---
US gallbladder CLINICAL HISTORY: ruq pain TECHNIQUE: Multiple real-time sonographic images of the right upper quadrant were obtained. Comparison: Comparison is made to gallbladder ultrasound 05/11/2023 FINDINGS: The liver is diffusely echogenic in appearance with poor ultrasound penetration, with normal contour, which is consistent with fatty infiltration. There is suggestion of dilated intrahepatic bile ducts. Gallbladder wall is variable in thickness measuring between 2 and 5 mm of thickening adjacent peric holecystic fluid. Numerous layering stones are seen. Staples's sign cannot be assessed as the patient received pain medication. The common duct measures 10.3 cm in diameter at the level of the hepatic ar urvashi. There is a probable stone within the common bile duct measuring 6 mm in diameter at the level o f the pancreatic head. The visualized portions of the pancreas appear normal. The right kidney shows normal echogenicity, cortical thickness and renal contour. The right kidney sh ows no evidence of hydronephrosis or mass. No ascites or free fluid is seen in Landrum's pouch. IMPRESSION: Choledocholithiasis with common bile duct dilation. Cholelithiasis with questionable focal gallbladde r wall thickening, cholecystitis cannot be entirely excluded. ACT 112: Negative or not required by law. Electronically signed by: Lowell Mcqueen M.D. 08/29/2023 2:03 AM
[2023-08-29] MEDS ORDERED: MoRPHine SULFATE 4 MG/ML 1 ML CARP\\VIAL IV STA (02:23)
--- NOTE | 2023-08-29 02:46 | History & Physical Report ---
Date of Service August 29, 2023 Assessment & Plan (1) Cholelithiasis with choledocholithiasis: Plan: Possible cholecystitis on imaging No sepsis for now GMF GI consult re: choledocholithiasis General surgery consult Re: Possible cholecystitis Hold off on additional antibiotics until further evaluation by specialists. N.p.o. in anticipation of procedure. DVT prophylaxis. SCDs Re: Possible procedure Full code Text document was generated using [employer] voice recognition software. It may contain grammatical or spelling errors. Kindly contact undersigned for clarification of any documentation item in question. History of Present Illness Chief Complaint: Abdominal pain Primary Care Provider: Li Sullivan, History obtained from patient and records. Medical history significant for preeclampsia, gallstones. Last confinement May 2023 under OB service for hemorrhage status post evacuation. Patient woke up with achy right upper quadrant pain yesterday morning. Pain radiating to the shoulder and chest. Similar to gallstone attack in the past as per patient but not as bad. No fever, no chills, no shortness of breath. Some nausea without emesis. Patient consulted ER. IV Zosyn administered at the ER. 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 Allergies Allergy/AdvReac Type Severity Reaction Status Date / Time cefaclor [From [facility]] Allergy Unknown Unknown Verified 07/14/23 10:35 Home Medications Medication Instructions Recorded Confirmed Type prenat.vits,iker,jjf-nqbs-puatu 1 tab PO QAM 11/29/21 07/14/23 History cetirizine 10 mg tablet (Zyrtec) 10 mg PO DAILY PRN 07/14/23 07/14/23 History Past Med/Surg History Medical History Encounter for pre-operative examination Anesthesia complication epidural did not work for last Gallstones GERD (gastroesophageal reflux disease) History of COVID-11 May 2022 > not hospitalized Supervision of normal intrauterine in multigravida Preeclampsia ASA 81mg for this Failure of descent in labor, delivered, current hospitalization Group beta Strep positive Pyelonephritis affecting resolved History of chicken pox Chlamydia 10 yrs ago Surgical History Status post section x1 S/P LASIK surgery S/P wisdom tooth extraction S/P tonsillectomy Family History Grandfather (Paternal) Myocardial infarction Mother Alcohol abuse Denies family history of Ovarian cancer Prostate cancer Breast cancer Colorectal cancer Social History Smoking Status: Never smoker Second Hand Exposure: No; Do You Dip or Chew Tobacco: No; Hx Alcohol Use: No Hx Substance Use: No Preferred Language: Luxembourgish Communication Ability: Effective Visual Impairment: No Limitations Hearing Ability: Normal Support Manager Required: No Beliefs That Will Affect Care: None marital status: marital status details: Shraddha Crespo (34) [phone]/ [phone] Current Living Situation: Spouse Current Living Situation Comment: daughter 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[employer] 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 Safe at Home: Yes Physical Activity Frequency: 3-4 Times per Week Assistive Devices: None Review of Systems Review of Systems: As per HPI, all other systems reviewed and negative Physical Exam Physical Exam: GENERAL: Comfortable, slightly anxious, no respiratory distress SKIN: Normal color, warm HEENT: [place] palpebral conjunctivae, no ptosis, dry buccal mucosa NECK : Supple, no tenderness CHEST : CTA, no tenderness HEART : RRR, no obvious murmurs ABDOMEN: Some distention, right upper quadrant tenderness EXTREMITIES : No LE swelling/tenderness, no other conspicuous deformities noted NEUROLOGIC : Coherent, no facial asymmetry, no other gross focality Results & Data Results & Data Vital Signs (Past 12 Hours) Vital Signs Temp Pulse Pulse Resp BP BP Pulse Ox 08/29/23 02:16 73 16 115/82 99 08/29/23 00:19 36.5 C 74 20 121/75 97 O2 Del Method 08/29/23 02:16 08/29/23 00:19 Room Air Laboratory Results Laboratory Results WBC 6.86 K/ul (4.8-10.8) 08/29/23 00:27 RBC 5.32 M/uL (4.20-5.40) 08/29/23 00:27 Hgb 13.2 g/dl (12.0-16.0) 08/29/23: Hct 41.6 % (37.0-47.0) 08/29/23: MCV 78.2 fL (80.0-100.0) L 08/29/23: MCH 24.8 pg (25.0-34.0) L 08/29/23: MCHC 31.7 g/dL (32.0-36.0) L 08/29/23: RDW Std Deviation 45.3 fL (36.4-46.3) 08/29/23: RDW Coeff of Ezekiel 16.2 % (11.5-14.5) H 08/29/23: Plt Count 287 K/uL (130-400) 08/29/23: MPV 11.3 fL (9.4-12.4) 08/29/23: Immature Gran % (Auto) 0.1 % 08/29/23: Neut % (Auto) 50.5 % 08/29/23: Lymph % (Auto) 31.3 % 08/29/23: [place] % (Auto) 15.9 % 08/29/23: Eos % (Auto) 1.2 % 08/29/23: Baso % (Auto) 1.0 % 08/29/23: Neut # (Auto) 3.46 K/uL (1.40-6.50) 08/29/23 00: Lymph # (Auto) 2.15 K/uL (1.20-3.40) 08/29/23 00: [place] # (Auto) 1.09 K/uL (0.11-0.59) H 08/29/23 00: Eos # (Auto) 0.08 K/uL (0.00-0.50) 08/29/23 00: Baso # (Auto) 0.07 K/uL (0.00-0.20) 08/29/23 00: Immature Gran # (Auto) 0.01 K/uL (0.01-0.20) 08/29/23 00: Sodium 139 mmol/L (136-145) 08/29/23 00: Potassium 3.6 mmol/L (3.5-5.1) 08/29/23 00: Chloride 104 mmol/L (98-107) 08/29/23 00: Carbon Dioxide 27 mmol/L (21-32) 08/29/23 00: Anion Gap 8 (3-11) 08/29/23 00:27 BUN 11 mg/dl (6-23) 08/29/23 00: Creatinine 0.83 mg/dl (0.6-1.2) 08/29/23 00: Est Cr Clr Drug Dosing 112.3 ml/min 08/29/23 00:27 Est GFR ( Amer) 107.4 ml/min 08/29/23 00: Est GFR (Non-Af Amer) 92.7 ml/min 08/29/23 00: BUN/Creatinine Ratio 13.3 (10-20) 08/29/23 00: Glucose 107 mg/dl (70-99(Fasting)) H 08/29/23 00: Calcium 9.5 mg/dl (8.6-10.3) 08/29/23: Total Bilirubin 2.9 mg/dl (0.2-1.0) H 08/29/23 00:27 AST 592 U/L (13-39) H 08/29/23 00:27 ALT 553 U/L (7-52) H 08/29/23 00: Alkaline Phosphatase 201 U/L (34-104) H 08/29/23 00: Total Protein 8.0 gm/dl (6.0-8.3) 08/29/23 00: Albumin 4.6 gm/dl (3.4-5.0) 08/29/23 00:27 Globulin 3.4 gm/dl (2.5-4.0) 08/29/23 00: Albumin/Globulin Ratio 1.4 (0.9-2) 08/29/23: Lipase 29 U/L (11-82) 08/29/23 00: HCG, Qual Negative (Negative) 08/29/23 00: Urine Color Dark Yellow 08/29/23 00:47 Urine Appearance Cloudy (Clear) A 08/29/23 00:47 Urine pH 6.0 (4.5-7.5) 08/29/23 00:47 Ur Specific [place] 1.026 (1.000-1.030) 08/29/23 00:47 Urine Protein Negative (Negative) 08/29/23 00:47 Urine Glucose (UA) Negative (Negative) 08/29/23 00:47 Urine Ketones Trace (Negative) H 08/29/23 00:47 Urine Blood Negative (Negative) 08/29/23 00:47 Urine Nitrite Negative (Negative) 08/29/23 00:47 Urine Bilirubin 2+ (Negative) H 08/29/23 00:47 Urine Urobilinogen Negative (Negative) 08/29/23 00:47 Ur Leukocyte Esterase 2+ (Negative) H 08/29/23 00:47 Urine WBC (Auto) >30 /hpf (0-5) H 08/29/23 00:47 Urine RBC (Auto) 0-4 /hpf (0-4) 08/29/23 00:47 U Hyaline Cast (Auto) 0 /lpf (0-5) 08/29/23 00:47 U Epithel Cells (Auto) >30 /lpf (0-5) H 08/29/23 00:47 Urine Bacteria (Auto) 1+ (Negative) H 08/29/23 00:47 Urine Crystals Not Reportable 08/29/23 00:47 Calcium Oxalate Crystal Present (None Prsent) A 08/29/23 00:47 Impressions Gallbladder Ultrasound 08/29/23 00:27 US gallbladder CLINICAL HISTORY: ruq pain TECHNIQUE: Multiple real-time sonographic images of the right upper quadrant were obtained. Comparison: Comparison is made to gallbladder ultrasound 05/11/2023 FINDINGS: The liver is diffusely echogenic in appearance with poor ultrasound penetration, with normal contour, which is consistent with fatty infiltration. There is suggestion of dilated intrahepatic bile ducts. Gallbladder wall is variable in thickness measuring between 2 and 5 mm of thickening adjacent pericholecystic fluid. Numerous layering stones are seen. Staples's sign cannot be assessed as the patient received pain medication. The common duct measures 10.3 cm in diameter at the level of the hepatic artery. There is a probable stone within the common bile duct measuring 6 mm in diameter at the level of the pancreatic head. The visualized portions of the pancreas appear normal. The right kidney shows normal echogenicity, cortical thickness and renal contour. The right kidney shows no evidence of hydronephrosis or mass. No ascites or free fluid is seen in Landrum's pouch. IMPRESSION: Choledocholithiasis with common bile duct dilation. Cholelithiasis with questionable focal gallbladder wall thickening, cholecystitis cannot be entirely excluded. ACT 112: Negative or not required by law. Electronically signed by: Lowell Mcqueen M.D. 08/29/2023 2:03 AM Diagnostic Findings Chest x-ray as per my interpretation no congestion, borderline cardiomegaly EKG as per my interpretation : Rate 70, NSR, normal axis, septal infarct, T wave abnormalities septal leads
[2023-08-29] MEDS ORDERED: LORazepam 0.5 MG TAB PO PRN (02:50)
[2023-08-29] MEDS ORDERED: NSS + 20MEQ KCL 20 MEQ/1,000 ML BAG IV ONE (03:00)
--- NOTE | 2023-08-29 07:22 | XRay Report ---
XR chest 1V portable HISTORY: 33 years-old Female upper abd pain acute chest and abdominal pain COMPARISON: 05/31/2023 TECHNIQUE: AP view of the chest FINDINGS: Cardiomediastinal and hilar silhouettes are within normal limits. No pneumothorax, pleural effusion o r airspace consolidation. Bones appear grossly intact. IMPRESSION: No acute process. ACT 112: Negative or not required by law. The above report was generated using voice recognition software. It may contain grammatical, syntax o r spelling errors. Electronically signed by: Abelardo Alves M.D. 08/29/2023 7:20 AM
[2023-08-29] MEDS ORDERED: CIPROFLOXACIN / D5W 400 MG/200 ML BAG IV SCH (08:15)
[2023-08-29] MEDS ORDERED: metroNIDAZOLE 500 MG/100 ML BAG IV SCH (08:15)
--- NOTE | 2023-08-29 08:15 | Gastrointestinal Consultation ---
Date of Consultation August 29, 2023 Assessment & Plan (1) Cholelithiasis with choledocholithiasis: (2) Elevated LFTs: Plan 33 y/o female (recently gave 3 months ago) with h/o gallstones, admitted w/ RUQ pain, elevated LFTs and US ABD w/ choledocholithiasis with CBD dilation, cholelithiasis w/ possible cholecystitis. We are consulted for concern for choledocholithiasis. Abd currently soft, nontender, she's afebrile w/ no tachycardia. - IVF hydration - Antiemetics PRN - Analgesia PRN - ABX per primary/surgical service - NPO after midnight - Trend LFTs, CBC - Will plan ERCP tomorrow to tx suspected choledocholithiasis - Consult surgery for cholecystectomy Prior to endoscopic evaluation, we appreciate assistance in the management and correction of [place] laboratory elements including the following: Please optimize pt's hemoglobin >7, INR <2, platelets >50,000, potassium levels >3.5 but <5.3, and sodium levels within 5 points of the reference range. Thank you for allowing us to participate in the care of this patient. Please call with any acute changes, questions or concerns. Please see addendum below with additional recommendation from my supervising physician. Supervising Physician Co-Signing Physician Notes I performed a history and physical examination of the patient today, including specifically on physical exam - soft abdomen. I have discussed the patient's ma nagement with the advanced practitioner. Please refer to the nurse practitioner's note for the documented findings and plan of care. Choledocholithiasis, no signs of cholangitis. Plan for ERCP tomorrow. Patient was explained in detail regarding risks, benefits, limitations and alternatives of the above endoscopic procedure. Risks of intravenous sedation used for procedure were also explained. Risks include, but not limited to perforation, bleeding, infection, respiratory distress, cardiac arrest and . Patient is also aware about the possibility of missed lesion. Patient's questions were answered. The patient verbalized understanding the information and agreed to undergo the procedure. History of Present Illness Reason for Consultation: choledocholithiasis Requesting Physician: Dr. Dang Attending Physician: Bhupinder Beach MD History of Present Illness This is a 33 y/o female s/p recent delivery of her second child 3 months ago, who has known gallstones and h/o intermittent RUQ pain. She developed episode of severe RUQ pain on Tuesday around 2 AM. Pain was radiating to the back and the shoulders; had episode of nonbloody emesis. She came to the ER last evening w/ continued pain. Upon arrival LFTs elevated w/ AST 59, ALT 553, ALP 201, Tbili 2.9. Normal WBC, HGB, PLT, renal fxn. US ABD w/ choledocholithiasis with CBD dilation, cholelithiasis w/ possible cholecystitis. She was tx w/ IV analgesia and currently resting; feels her pain is resolved for the moment. She's afebrile. At home was in her usual state of health until Tuesday. No fever, chills, CP, SOB but it hurts to take a deep breath d/t pain. No jaundice, icterus, dark urine, melena, hematochezia, hematemesis. Last BM was yesterday. She is passing flatus. No tobacco. Occasional ETOH. Ibuprofen/Tylenol for headaches. No AC H/o x2 Never had endoscopy Allergies Allergy/AdvReac Type Severity Reaction Status Date / Time cefaclor [From [facility]] Allergy Unknown Unknown Verified 07/14/23 10:35 Home Medications Medication Instructions Recorded Confirmed Type prenat.vits,iker,clo-nkdl-mglay 1 tab PO QAM 11/29/21 07/14/23 History Patient History Medical History Encounter for pre-operative examination Anesthesia complication epidural did not work for last Gallstones GERD (gastroesophageal reflux disease) History of COVID-11 May 2022 > not hospitalized Supervision of normal intrauterine in multigravida Preeclampsia ASA 81mg for this Failure of descent in labor, delivered, current hospitalization Group beta Strep positive Pyelonephritis affecting resolved History of chicken pox Chlamydia 10 yrs ago Surgical History Status post section x1 S/P LASIK surgery S/P wisdom tooth extraction S/P tonsillectomy Family History Grandfather (Paternal) Myocardial infarction Mother Alcohol abuse Denies family history of Ovarian cancer Prostate cancer Breast cancer Colorectal cancer Social History Smoking Status: Never smoker Second Hand Exposure: No; Do You Dip or Chew Tobacco: No; Tobacco Cessation Education Requested by Patient: No Hx Alcohol Use: Yes Alcohol type: beer, wine and hard liquor Hx Substance Use: No Preferred Language: Trinidadian Communication Ability: Effective Visual Impairment: No Limitations Hearing Ability: Normal Machine Heel Seat Fitter Required: No Beliefs That Will Affect Care: None marital status: marital status details: Shraddha Crespo (34) [phone]/ [phone] Current Living Situation: Spouse Current Living Situation Comment: Spouse, 3 mo child, 20 mo child 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[employer] Other Information That Helps Us Care for You: No Feels Safe at Home: Yes Safety Concerns: Feels Safe At This Time Physical Activity Frequency: 3-4 Times per Week Assistive Devices: None Review of Systems Review of Systems: All systems reviewed & are unremarkable except as noted in HPI & below Physical Exam Constitutional: well developed, well nourished and comfortable; no acute distress Eyes: Sclera anicteric ENMT: no pallor Neck: trachea midline supple Respiratory: normal respiratory effort; no cough and not tachypneic Cardiovascular: Rate/Rhythm: regular rate and regular rhythm Gastrointestinal (Abdomen): normal bowel sounds, soft, nontender, no hepatosplenomegaly Inspection/Auscultation: abdomen not distended Skin: no rashes, warm and dry Neurologic: alert and oriented x 3, no obvious focal neuro deficit Psychiatric: normal mood and affect Results & Data Vital Signs (Past 12 Hours) Vital Signs Temp Pulse Pulse Resp BP BP Pulse Ox 08/29/23 06:51 08/29/23 05:48 75 16 110/71 98 08/29/23 05:27 99 08/29/23 02:16 73 16 115/82 99 08/29/23 00:19 36.5 C 74 20 121/75 97 O2 Del Method 08/29/23 06:51 Room Air 08/29/23 05:48 Room Air 08/29/23 05:27 Room Air 08/29/23 02:16 08/29/23 00:19 Room Air Laboratory Results 08/29/23 08/29/23 Range/Units 00:47 00:27 WBC 6.86 (4.8-10.8) K/ul RBC 5.32 (4.20-5.40) M/uL Hgb 13.2 (12.0-16.0) g/dl Hct 41.6 (37.0-47.0) % MCV 78.2 L (80.0-100.0) fL MCH 24.8 L (25.0-34.0) pg MCHC 31.7 L (32.0-36.0) g/dL RDW Std Deviation 45.3 (36.4-46.3) fL RDW Coeff of Ezekiel 16.2 H (11.5-14.5) % Plt Count 287 (130-400) K/uL MPV 11.3 (9.4-12.4) fL Immature Gran % (Auto) 0.1 % Neut % (Auto) 50.5 % Lymph % (Auto) 31.3 % [place] % (Auto) 15.9 % Eos % (Auto) 1.2 % Baso % (Auto) 1.0 % Neut # (Auto) 3.46 (1.40-6.50) K/uL Lymph # (Auto) 2.15 (1.20-3.40) K/uL [place] # (Auto) 1.09 H (0.11-0.59) K/uL Eos # (Auto) 0.08 (0.00-0.50) K/uL Baso # (Auto) 0.07 (0.00-0.20) K/uL Immature Gran # (Auto) 0.01 (0.01-0.20) K/uL Sodium 139 (136-145) mmol/L Potassium 3.6 (3.5-5.1) mmol/L Chloride 104 (98-107) mmol/L Carbon Dioxide 27 (21-32) mmol/L Anion Gap 8 (3-11) BUN 11 (6-23) mg/dl Creatinine 0.83 (0.6-1.2) mg/dl Est Cr Clr Drug Dosing 112.3 ml/min Est GFR ( Amer) 107.4 ml/min Est GFR (Non-Af Amer) 92.7 ml/min BUN/Creatinine Ratio 13.3 (10-20) Glucose 107 H (70-99(Fasting)) mg/dl Calcium 9.5 (8.6-10.3) mg/dl Total Bilirubin 2.9 H (0.2-1.0) mg/dl AST 592 H (13-39) U/L ALT 553 H (7-52) U/L Alkaline Phosphatase 201 H (34-104) U/L Total Protein 8.0 (6.0-8.3) gm/dl Albumin 4.6 (3.4-5.0) gm/dl Globulin 3.4 (2.5-4.0) gm/dl Albumin/Globulin Ratio 1.4 (0.9-2) Lipase 29 (11-82) U/L HCG, Qual Negative (Negative) Urine Color Dark Yellow Urine Appearance Cloudy A (Clear) Urine pH 6.0 (4.5-7.5) Ur Specific [place] 1.026 (1.000-1.030) Urine Protein Negative (Negative) Urine Glucose (UA) Negative (Negative) Urine Ketones Trace H (Negative) Urine Blood Negative (Negative) Urine Nitrite Negative (Negative) Urine Bilirubin 2+ H (Negative) Urine Urobilinogen Negative (Negative) Ur Leukocyte Esterase 2+ H (Negative) Urine WBC (Auto) >30 H (0-5) /hpf Urine RBC (Auto) 0-4 (0-4) /hpf U Hyaline Cast (Auto) 0 (0-5) /lpf U Epithel Cells (Auto) >30 H (0-5) /lpf Urine Bacteria (Auto) 1+ H (Negative) Urine Crystals Not Reportable Calcium Oxalate Crystal Present A (None Prsent) Diagnostic Findings US ABD: The liver is diffusely echogenic in appearance with poor ultrasound penetration, with normal contour, which is consistent with fatty infiltration. There is suggestion of dilated intrahepatic bile ducts. Gallbladder wall is variable in thickness measuring between 2 and 5 mm of thickening adjacent pericholecystic fluid. Numerous layering stones are seen. Staples's sign cannot be assessed as the patient received pain medication. The common duct measures 10.3 cm in diameter at the level of the hepatic artery. There is a probable stone within the common bile duct measuring 6 mm in diameter at the level of the pancreatic head. The visualized portions of the pancreas appear normal. The right kidney shows normal echogenicity, cortical thickness and renal contour. The right kidney shows no evidence of hydronephrosis or mass. No ascites or free fluid is seen in Landrum's pouch. IMPRESSION: Choledocholithiasis with common bile duct dilation. Cholelithiasis with questionable focal gallbladder wall thickening, cholecystitis cannot be entirely excluded.
--- NOTE | 2023-08-29 11:18 | Surgery Consultation ---
<Statement entered by Rene Gordon MD - 08/30/23 09:58> Patient seen and examined. Surgical consent obtained. ERCP and lap oliva today. Date of Consultation August 29, 2023 Assessment & Plan (1) Elevated LFTs: (2) Cholelithiasis with choledocholithiasis: Plan 33 year-old female with 1 day history of ruq/epigastric abdominal pain with nausea and vomiting x 1 with elevated t. bili and lfts and ultrasound showing cholelithiasis with possible cholecystitis and choledocholithiasis. Hemodynamically stable. No leukocytosis. Plan: GI planning for ERCP on 08/30/2023. Will try to attempt combined case with lap oliva however may not be able to due to OR timing/availability. Discussed with patient either lap oliva this admission or close outpatient follow-up. Okay from surgery standpoint today for clear liquids npo after midnight pain management as needed IV fluids antiemetics as needed consider continuing IV antibiotics given concern for possible cholecystitis Discussed with Dr. Gordon who agrees with above and will evaluate patient later today. History of Present Illness Reason for Consultation: Choledocholithiasis possible cholecystitis Requesting Physician: Dr. Sadia MD Attending Physician: Bhupinder Beach MD History of Present Illness Hortencia is a 33 year-old female with history of anemia and hemorrhage in May 2023 and cholelithiasis who presented to ED with complaint of severe epigastric pain with nausea and one episode of vomiting that started at 2 am on Tuesday morning. States the pain was severe and had some difficulty taking a deep breath due to pain but no chest pain or shortness of breath. Known history of gallstones since having her child 3 months ago and some intermittent pain but not this severe. Denies fever, chills, persistent vomiting, changes in bowel habits, diarrhea, constipation, blood in stools, black/tarry stools, acholic stools, jaundice. History of two c sections no other abdominal surgeries. No history of blood clots. ER work-up included labs which showed no leukocytosis, elevated. t. bili and lfts. Ultrasound with dilated CBD at level of hepatic artery and 6 mm stone in CBD with some mild wall thickening possible for acute cholecystitis. Currently states she is feeling much better, pain minimal at this time after Morphine was given at 5 am. No further nausea or vomiting. Allergies Allergy/AdvReac Type Severity Reaction Status Date / Time cefaclor [From [facility]] Allergy Unknown Unknown Verified 07/14/23 10:35 Home Medications Medication Instructions Recorded Confirmed Type prenat.vits,iker,oit-kynd-wfuqd 1 tab PO QAM 11/29/21 08/29/23 History Patient History Medical History Encounter for pre-operative examination Anesthesia complication epidural did not work for last Gallstones GERD (gastroesophageal reflux disease) History of COVID-11 May 2022 > not hospitalized Supervision of normal intrauterine in multigravida Preeclampsia ASA 81mg for this Failure of descent in labor, delivered, current hospitalization Group beta Strep positive Pyelonephritis affecting resolved History of chicken pox Chlamydia 10 yrs ago Surgical History Status post section x1 S/P LASIK surgery S/P wisdom tooth extraction S/P tonsillectomy Family History Grandfather (Paternal) Myocardial infarction Mother Alcohol abuse Denies family history of Ovarian cancer Prostate cancer Breast cancer Colorectal cancer Social History Smoking Status: Never smoker Second Hand Exposure: No; Do You Dip or Chew Tobacco: No; Tobacco Cessation Education Requested by Patient: No Hx Alcohol Use: Yes Alcohol type: beer, wine and hard liquor Hx Substance Use: No Preferred Language: [place] Communication Ability: Effective Visual Impairment: No Limitations Hearing Ability: Normal Dogman/Woman Required: No Beliefs That Will Affect Care: None marital status: marital status details: Shraddha Crespo (34) [phone]/ [phone] Current Living Situation: Spouse Current Living Situation Comment: Spouse, 3 mo child, 20 mo child 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[employer] Other Information That Helps Us Care for You: No Feels Safe at Home: Yes Safety Concerns: Feels Safe At This Time Physical Activity Frequency: 3-4 Times per Week Assistive Devices: None Review of Systems Review of Systems: All systems reviewed & are unremarkable except as noted in HPI & below Physical Exam Constitutional: WD/WN, vitals as above no acute distress and not ill appe aring Respiratory: normal respiratory effort; no respiratory distress, no labored breathing and no retractions Cardiovascular: RRR, no murmur, no edema Gastrointestinal (Abdomen): Inspection/Auscultation: abdomen normal to inspection; abdomen not distended Percussion/Palpation: + abdomen tender (RUQ on deep palpation and epigastrium) and abdomen soft; no guarding, abdomen not rigid and abdomen not firm Skin: no rashes, warm and dry Psychiatric: A+Ox3, euthymic affect Results & Data Vital Signs (Past 12 Hours) Vital Signs Temp Pulse Pulse Resp BP BP Pulse Ox 08/29/23 09:54 84 18 111/80 99 08/29/23 06:51 08/29/23 05:48 75 16 110/71 98 08/29/23 05:27 99 08/29/23 02:16 73 16 115/82 99 08/29/23 00:19 36.5 C 74 20 121/75 97 O2 Del Method 08/29/23 09:54 Room Air 08/29/23 06:51 Room Air 08/29/23 05:48 Room Air 08/29/23 05:27 Room Air 08/29/23 02:16 08/29/23 00:19 Room Air Laboratory Results 08/29/23 08/29/23 08/29/23 Range/Units 09:50 00:47 00:27 WBC 6.86 (4.8-10.8) K/ul RBC 5.32 (4.20-5.40) M/uL Hgb 13.2 (12.0-16.0) g/dl Hct 41.6 (37.0-47.0) % MCV 78.2 L (80.0-100.0) fL MCH 24.8 L (25.0-34.0) pg MCHC 31.7 L (32.0-36.0) g/dL RDW Std Deviation 45.3 (36.4-46.3) fL RDW Coeff of Ezekiel 16.2 H (11.5-14.5) % Plt Count 287 (130-400) K/uL MPV 11.3 (9.4-12.4) fL Immature Gran % (Auto) 0.1 % Neut % (Auto) 50.5 % Lymph % (Auto) 31.3 % [place] % (Auto) 15.9 % Eos % (Auto) 1.2 % Baso % (Auto) 1.0 % Neut # (Auto) 3.46 (1.40-6.50) K/uL Lymph # (Auto) 2.15 (1.20-3.40) K/uL [place] # (Auto) 1.09 H (0.11-0.59) K/uL Eos # (Auto) 0.08 (0.00-0.50) K/uL Baso # (Auto) 0.07 (0.00-0.20) K/uL Immature Gran # (Auto) 0.01 (0.01-0.20) K/uL Sodium 139 (136-145) mmol/L Potassium 3.6 (3.5-5.1) mmol/L Chloride 104 (98-107) mmol/L Carbon Dioxide 27 (21-32) mmol/L Anion Gap 8 (3-11) BUN 11 (6-23) mg/dl Creatinine 0.83 (0.6-1.2) mg/dl Est Cr Clr Drug Dosing 112.3 ml/min Est GFR ( Amer) 107.4 ml/min Est GFR (Non-Af Amer) 92.7 ml/min BUN/Creatinine Ratio 13.3 (10-20) Glucose 107 H (70-99(Fasting)) mg/dl Calcium 9.5 (8.6-10.3) mg/dl Total Bilirubin 2.9 H (0.2-1.0) mg/dl AST 592 H (13-39) U/L ALT 553 H (7-52) U/L Alkaline Phosphatase 201 H (34-104) U/L Total Protein 8.0 (6.0-8.3) gm/dl Albumin 4.6 (3.4-5.0) gm/dl Globulin 3.4 (2.5-4.0) gm/dl Albumin/Globulin Ratio 1.4 (0.9-2) Lipase 29 (11-82) U/L HCG, Qual Negative (Negative) Urine Color Dark Yellow Urine Appearance Cloudy A (Clear) Urine pH 6.0 (4.5-7.5) Ur Specific [place] 1.026 (1.000-1.030) Urine Protein Negative (Negative) Urine Glucose (UA) Negative (Negative) Urine Ketones Trace H (Negative) Urine Blood Negative (Negative) Urine Nitrite Negative (Negative) Urine Bilirubin 2+ H (Negative) Urine Urobilinogen Negative (Negative) Ur Leukocyte Esterase 2+ H (Negative) Urine WBC (Auto) >30 H (0-5) /hpf Urine RBC (Auto) 0-4 (0-4) /hpf U Hyaline Cast (Auto) 0 (0-5) /lpf U Epithel Cells (Auto) >30 H (0-5) /lpf Urine Bacteria (Auto) 1+ H (Negative) Urine Crystals Not Reportable Calcium Oxalate Crystal Present A (None Prsent) SARS-CoV-2, RNA, NAAT NEGATIVE (NEGATIVE) Diagnostic Findings US gallbladder CLINICAL HISTORY: ruq pain TECHNIQUE: Multiple real-time sonographic images of the right upper quadrant were obtained. Comparison: Comparison is made to gallbladder ultrasound 05/11/2023 FINDINGS: The liver is diffusely echogenic in appearance with poor ultrasound penetration, with normal contour, which is consistent with fatty infiltration. There is suggestion of dilated intrahepatic bile ducts. Gallbladder wall is variable in thickness measuring between 2 and 5 mm of thickening adjacent pericholecystic fluid. Numerous layering stones are seen. Staples's sign cannot be assessed as the patient received pain medication. The common duct measures 10.3 cm in diameter at the level of the hepatic artery. There is a probable stone within the common bile duct measuring 6 mm in diameter at the level of the pancreatic head. The visualized portions of the pancreas appear normal. The right kidney shows normal echogenicity, cortical thickness and renal contour. The right kidney shows no evidence of hydronephrosis or mass. No ascites or free fluid is seen in Landrum's pouch. IMPRESSION: Choledocholithiasis with common bile duct dilation. Cholelithiasis with questionable focal gallbladder wall thickening, cholecystitis cannot be entirely excluded.
[2023-08-29] MEDS: PRENATAL VITAMIN 1 TAB PO SCH (11:39)
[2023-08-29] MEDS: oxyCODONE HCL IR 5 MG TAB (IMMEDIATE RELEASE) PO PRN (12:08)
--- NOTE | 2023-08-29 13:10 | Electrocardiogram Report ---
Test Reason : Blood Pressure : / mmHG Vent. Rate : 069 BPM Atrial Rate : 069 BPM P-R Int : 172 ms QRS Dur : 094 ms QT Int : 408 ms P-R-T Axes : 075 012 037 degrees QTc Int : 437 ms Normal sinus rhythm with sinus arrhythmia Possible Left atrial enlargement Borderline ECG When compared with ECG of 06-JUN-2023 10:39, T wave inversion now evident in Anterior leads Confirmed by Madhav Bales ([id number]) on 08/29/2023 1:09:50 PM Referred By: NO PCP Confirmed By:Madhav Bales
--- NOTE | 2023-08-29 14:36 | Hospitalist Progress Note ---
Date of Service August 29, 2023 Assessment & Plan (1) Cholelithiasis with choledocholithiasis: Plan: Possible Acute Cholecystitis afebrile, hemodynamically stable for ERCP tomorrow with possible cholecystectomy start Cipro + Flagyl PRN Morphine for pain advised not to breastfeed at this time IV fluids Gen Surg, GI on board DVT prophylaxis. SCDs Re: Possible procedure Full code plan of care discussed with patient in detail all questions answered she is understanding, agreeable, comfortable with the plan of care Admission and Anticipated Discharge Date Admission Date: August 29, 2023 Subjective ff up for choledocholithiasis, cholelithiasis with acute cholecystitis, etc seen resting in bed, not in distress still having some generalized abdominal discomfort also headache, mostly on the L side intermittent nausea no chest pain, dyspnea, palpitations, dizziness no other symptoms Review of Systems Review of Systems: all noted and negative except for above Physical Exam Physical Exam: General- oriented x 3, not in distress, speaks in sentences with no effort or accessory muscle use Eyes- anicteric Neck- no JVD Lungs- clear breath sounds bilaterally, no crackles or wheezing Heart- normal rate, regular rhythm; no murmurs Abdomen- normal bowel sounds, nondistended, soft, mild RUQ tenderness Extremities- no pretibial edema, no calf tenderness Neuro- alert, oriented x 3; no gross focal neurologic deficits Skin- warm & dry Results & Data Results & Data Vital Signs (Past 12 Hours) Vital Signs Pulse Resp BP Pulse Ox O2 Del Method 08/29/23 09:54 84 18 111/80 99 Room Air 08/29/23 06:51 Room Air 08/29/23 05:48 75 16 110/71 98 Room Air 08/29/23 05:27 99 Room Air all noted and reviewed including below
[2023-08-29] MEDS ORDERED: PROMETHAZINE 6.25 MG/50.25 ML NSS IV ONE (14:51)
[2023-08-29] MEDS: MoRPHine SULFATE 4 MG/ML 1 ML CARP\\VIAL IV PRN ×2 (14:58→20:51)
[2023-08-29] MEDS: PROMETHAZINE HCL 6.25 MG in SODIUM CHLORIDE 0.9% 50 ML IV PRN ×2 (14:58→20:51)
[2023-08-29] MEDS: metroNIDAZOLE 500 MG/100 ML BAG IV SCH ×2 (17:37→23:20)
[2023-08-29] MEDS: CIPROFLOXACIN / D5W 400 MG/200 ML BAG IV SCH (19:20)
[2023-08-29] MEDS: ACETAMINOPHEN 500 MG TAB PO PRN (19:22)
[2023-08-29] MEDS ORDERED: Nursing to Pharmacy Communication SCH (22:15)
[2023-08-30] MEDS: CIPROFLOXACIN / D5W 400 MG/200 ML BAG IV SCH ×2 (06:05→17:30)
[2023-08-30 07:08] LABS: Hematocrit (blood only) 39.7 % (37.0-47.0); Hemoglobin 12.1 g/dl (12.0-16.0); Mean Corpuscular Hemoglobin 24.7 pg (25.0-34.0); Mean Corpuscular Hgb Conc 30.5 g/dL (32.0-36.0); Mean Platelet Volume 11.1 fL (9.4-12.4); Platelet Count 220 K/uL (130-400); RDW Coefficient of Variation 16.5 % (11.5-14.5); RDW Standard Deviation 48.5 fL (36.4-46.3); White Blood Count 4.42 K/ul (4.8-10.8)
[2023-08-30 07:35] LABS: Basophils # (auto) 0.08 K/uL (0.00-0.20); Basophils % (auto) 1.8 %; Eosinophils # (auto) 0.17 K/uL (0.00-0.50); Eosinophils % (auto) 3.8 %; Immature Granulocytes # (auto) 0.01 K/uL (0.01-0.20); Immature Granulocytes % (auto) 0.2 %; Monocytes # (auto) 0.57 K/uL (0.11-0.59); Monocytes % (auto) 12.9 %; Neutrophils # (auto) 1.29 K/uL (1.40-6.50); Neutrophils % (auto) 29.3 %
[2023-08-30 07:54] LABS: Albumin Globulin Ratio 1.3 (0.9-2); Albumin Level 4.1 gm/dl (3.4-5.0); BUN Creatinine Ratio 9.4 (10-20); Bilirubin,Total 1.2 mg/dl (0.2-1.0); Creatinine Clr Calc Pharmacy 109.6 ml/min; Est GFR (African American) 104.3 ml/min; Globulin 3.1 gm/dl (2.5-4.0); Potassium 4.5 mmol/L (3.5-5.1); Total Protein 7.2 gm/dl (6.0-8.3)
[2023-08-30] MEDS: PRENATAL VITAMIN 1 TAB PO SCH (08:22)
[2023-08-30] MEDS: oxyCODONE HCL IR 5 MG TAB (IMMEDIATE RELEASE) PO PRN ×2 (08:22→17:33)
[2023-08-30] MEDS: metroNIDAZOLE 500 MG/100 ML BAG IV SCH ×3 (08:33→23:26)
--- NOTE | 2023-08-30 09:25 | History & Physical Bridge Note ---
Date of Service August 30, 2023 History & Physical Bridge Note I have examined the patient, reviewed the History & Physical and in the interval since the performance of the History & Physical I have noted the following changes of clinical significance: no changes noted
[2023-08-30] MEDS ORDERED: PROPOFOL IV EMULSION 10 MG/ML 20 ML VIAL IV ONE (10:54)
[2023-08-30] MEDS ORDERED: ONDANSETRON INJ 2 MG/ML 2 ML VIAL ONE (10:54)
[2023-08-30] MEDS ORDERED: MIDAZOLAM HCL 1 MG/ML 2ML VIAL ONE (10:54)
[2023-08-30] MEDS ORDERED: LIDOCAINE 2% 2 ML VIAL/AMP(20MG/ML) INFIL ONE (10:54)
[2023-08-30] MEDS ORDERED: DEXAMETHASONE SOD INJ 4 MG/ML VIAL ONE (10:54)
[2023-08-30] MEDS ORDERED: fentaNYL citrate PF 100 MCG/2 ML VIAL ONE ×2 (10:54→12:52)
[2023-08-30] MEDS ORDERED: ROCURONIUM BROMIDE 10 MG/ML 5 ML VIAL IV ONE (10:54)
[2023-08-30] MEDS: LACTATED RINGER'S 1,000 ML IV SCH (11:13)
[2023-08-30] MEDS ORDERED: INDOMETHACIN 50 MG SUPP PR ONE (11:38)
[2023-08-30] MEDS ORDERED: BUPIVACAINE/EPINEPHRINE 0.5% MPF 1:200,000 30 ML VIAL ONE (11:38)
[2023-08-30] MEDS ORDERED: ONDANSETRON INJ 2 MG/ML 2 ML VIAL IV PRN (11:52)
[2023-08-30] MEDS ORDERED: ePHEDrine sulfate 50 MG/ML AMP IV PRN (11:52)
[2023-08-30] MEDS ORDERED: ATROPINE SULFATE 0.1 MG/ML 10ML SYR IV PRN (11:52)
[2023-08-30] MEDS ORDERED: HYDROmorphone INJ 2 MG/ML SYR/VIAL IV PRN (11:52)
--- NOTE | 2023-08-30 11:52 | Anesthesiology Consultation ---
Date of Service August 30, 2023 Assessment & Plan ASA ASA2 Proposed Anesthesia Anesthesia Type: General Risk / Benefits Reviewed With: PT / POA / Parent / Guardian, Accepts Plan and Informed Consent Obtained History Surgery Operation Date: 08/30/23 11:05 Proposed Procedures p Endoscopic Retrograde Cholangiopancreatogram - Phillip Hahn MD s Laparoscopic Cholecystectomy - Rene Gordon MD Height/Weight Height: 5 ft 9 in Weight: 85.1 kg Allergies Allergy/AdvReac Type Severity Reaction Status Date / Time cefaclor [From [facility]] Allergy Unknown Unknown Verified 07/14/23 10:35 Medications Home Medications Medication Instructions Recorded Confirmed Last Taken prenat.vits,iker,[id number] 1 tab PO QAM 11/29/21 08/29/23 05/30/23 08:00 Active Medications Generic Name Dose Route Start Last Admin Trade Name Freq PRN Reason Stop Dose Admin Acetaminophen 500 mg 08/29/23 02:50 08/29/23 19:22 Acetaminophen 500 Mg Tab PO 09/28/23 02:49 500 mg Q6H PRN Administration fever/pain Promethazine HCl 6.25 mg/ 50.25 mls @ 201 mls/hr 08/29/23 02:50 08/29/23 22:05 Sodium Chloride IV 09/28/23 02:49 Infused Q6H PRN Infusion Nausea And Vomiting Ciprofloxacin 400 mg in 200 mls @ 100 mls/hr 08/29/23 14:30 08/30/23 08:16 Cipro / D5w IV 09/08/23 14:29 Infused Q12H EMILIO Infusion Protocol Metronidazole 500 mg in 100 mls @ 100 mls/hr 08/29/23 14:30 08/30/23 09:58 Flagyl IV 09/08/23 14:29 Infused Q8H EMILIO Infusion Protocol Lactated Ringer's 1,000 mls @ 15 mls/hr 08/30/23 11:00 08/30/23 11:13 Lr IV 09/29/23 10:59 15 mls/hr .Q24H EMILIO Administration Morphine Sulfate 4 mg 08/29/23 02:50 08/29/23 20:51 Morphine Sulfate 4 Mg/Ml 1 Ml Carp\Vial IV 09/12/23 02:49 4 mg Q4H PRN Administration Pain Oxycodone HCl 5 - 10 mg 08/29/23 02:50 08/30/23 08:22 Oxycodone Hcl Ir 5 Mg Tab (Immediate Release) PO 09/12/23 02:49 5 mg QID PRN Administration Pain Prenat Multivit/Z [employer] Programmer/Iron/Folic Ac 1 tab 08/29/23 09:00 08/30/23 08:22 Vitamin 1 Tab PO 09/28/23 08:59 1 tab QAM EMILIO Administration NPO Date Last Intake of Fluids: 08/30/23 Time Last Intake of Fluids: 08:00 Last Intake of Fluids Comment: sip with med Date Last Intake of Solids: 08/29/23 Time Last Intake of Solids: 20:00 Past Medical History Medical History Encounter for pre-operative examination Anesthesia complication epidural did not work for last Gallstones GERD (gastroesophageal reflux disease) History of COVID-11 May 2022 > not hospitalized Supervision of normal intrauterine in multigravida Preeclampsia ASA 81mg for this Failure of descent in labor, delivered, current hospitalization Group beta Strep positive Pyelonephritis affecting resolved History of chicken pox Chlamydia 10 yrs ago Exercise / Class Metabolic Activity II 4-5 Yardwork/Stairs/Walk up hill Past Family History Family History Grandfather (Paternal) Myocardial infarction Mother Alcohol abuse Denies family history of Ovarian cancer Prostate cancer Breast cancer Colorectal cancer Past Surgical History Surgical History Status post section x1 S/P LASIK surgery S/P wisdom tooth extraction S/P tonsillectomy Past Anesthesia History No Hx of Anesthesia Complications and No Family Hx of Anesthesia Complications History of PONV No Hx of PONV and No Hx of Motion Sickness Social History Smoking Status: Never smoker Do You Dip or Chew Tobacco: No Hx Alcohol Use: Yes Alcohol type: beer, wine and hard liquor alcohol intake frequency: holidays/special occasions only Hx Substance Use: No substance use type: does not use Review of Systems denies fever/cough/ colds/ chest pain/ SOB/ KAITLIN denies KAITLIN Physical Exam Vital Signs Last Vital Signs Temp 36.6 C 08/30/23 07:22 Pulse 64 08/30/23 07:22 Resp 12 08/30/23 07:22 BP 102/63 08/30/23 07:22 Pulse Ox 100 08/30/23 07:22 O2 Del Method Room Air 08/30/23 07:22 ENMT Mouth: no TMJ abnormality and no dentition abnormality Thyromental Distance: > or= 3.5 Finger Breadths Mallampati Class: II Neck neck extension not limited Respiratory normal respiratory effort; no respiratory distress Auscultation: lungs clear to auscultation bilaterally Cardiovascular Rate/Rhythm: regular rate and regular rhythm Neurologic moves all extremities Psychiatric Orientation: alert and oriented x 3 Testing Laboratory Results 08/30/23 06:47 08/30/23 06:47 Urine Color Dark Yellow 08/29/23 00:47 Urine Appearance Cloudy (Clear) A 08/29/23 00:47 Urine pH 6.0 (4.5-7.5) 08/29/23 00:47 Ur Specific Ary 1.026 (1.000-1.030) 08/29/23 00:47 Urine Protein Negative (Negative) 08/29/23 00:47 Urine Glucose (UA) Negative (Negative) 08/29/23 00:47 Urine Ketones Trace (Negative) H 08/29/23 00:47 Urine Nitrite Negative (Negative) 08/29/23 00:47 Ur Leukocyte Esterase 2+ (Negative) H 08/29/23 00:47 Urine WBC (Auto) >30 /hpf (0-5) H 08/29/23 00:47 Urine RBC (Auto) 0-4 /hpf (0-4) 08/29/23 00:47 U Hyaline Cast (Auto) 0 /lpf (0-5) 08/29/23 00:47 U Epithel Cells (Auto) >30 /lpf (0-5) H 08/29/23 00:47 Urine Bacteria (Auto) 1+ (Negative) H 08/29/23 00:47
[2023-08-30] MEDS ORDERED: ceFAZolin 2,000 MG/15 ML IV PUSH IV ONE (12:00)
--- NOTE | 2023-08-30 12:29 | Operative Report ---
Post Operative Report Pre & Post Diagnosis Operation Date: 08/30/23 11:05 Pre-Op Diagnosis: CHOLEDOCHOLITHIASIS I identified the patient and participated in the time-out.: Yes Procedure Operation Date: 08/30/23 11:05 Actual Procedures p Endoscopic Retrograde Cholangiopancreato - Phillip Hahn MD s Laparoscopic Cholecystectomy(Not Applicable) - Rene Gordon MD Surgeon Phillip Hahn MD Embosser Operator None Estimated Blood Loss 0 Findings See Below (CBD stone removed, large amount of sludge, stent placed) Specimens None Description of Procedure ERCP I attest to the content of the Intraoperative Record and any orders documented therein. Any exceptions are noted below.
--- NOTE | 2023-08-30 12:37 | Hospitalist Progress Note ---
Date of Service August 30, 2023 Assessment & Plan (1) Cholelithiasis with choledocholithiasis: Plan: Possible Acute Cholecystitis Cholelithiasis with choledocholithiasis She is status post ERCP by Dr. Hahn with biliary stent placement S/P laparoscopic cholecystectomy by Dr. Gordon afebrile, hemodynamically stable for ERCP tomorrow with possible cholecystectomy continue Cipro + Flagyl PRN Morphine for pain advised not to breastfeed at this time IV fluids diet per surgery/GI Transaminitis 2/2 above follow T bili 2.9 --> 1.2 DVT prophylaxis. SCDs Re: Possible procedure Full code Pt was seen and examined in collaboration with Dr. Beach, please see addendum Admission and Anticipated Discharge Date Admission Date: August 29, 2023 Supervising Physician Co-Signing Physician Notes Attending Addendum: care coordinated with KIRILL Zhang please refer to her notes for full details, I agree with her notes patient seen and examined, records reviewed by myself as well diagnoses and plan of care as per KIRILL Zhang's notes Bhupinder Beach MD Subjective Patient was seen and examined in room 355. Follow-up cholelithiasis with choledocholithiasis. Planning to undergo surgical intervention today. She has been n.p.o. since midnight. She states that she has a significant appetite and is hopeful to be able to have diet advanced postoperatively. She denies fever, chills, sweats, lightheadedness, dizziness, chest pain, shortness with, nausea or vomiting. She does have slight abdominal discomfort. Abdominal pain worse with deep breathing and leaning forward. Review of Systems Review of Systems: All systems reviewed & are unremarkable except as noted in HPI & below Physical Exam Physical Exam: Gen: WD/WN, F, NAD, A&O x3 HEENT: Normocephalic, atraumatic, conjunctivae moist, sclerae anicteric, mucous membranes moist. Lung: Clear to Auscultation bilaterally, no wheezes/rales/rhonchi Heart: Regular rate, regular rhythm, no murmurs, rubs, or gallops Abdomen: Soft, NT, ND +BS x 4 Extremities: No edema Skin: Warm, no rash, negative turgor. Results & Data Results & Data Vital Signs (Past 12 Hours) Vital Signs Temp Pulse Resp BP Pulse Ox O2 Del Method 08/30/23 07:22 36.6 C 64 12 102/63 100 Room Air Diagnostic Findings operation Date: 08/30/23 11:05 Pre-Op Diagnosis: CHOLEDOCHOLITHIASIS I identified the patient and participated in the time-out.: Yes Procedure Operation Date: 08/30/23 11:05 Actual Procedures p Endoscopic Retrograde Cholangiopancreato - Phillip Hahn MD s Laparoscopic Cholecystectomy(Not Applicable) - Rene Gordon MD Surgeon Phillip Hahn MD Director Of Strategic Communications None Estimated Blood Loss 0 Findings See Below (CBD stone removed, large amount of sludge, stent placed) Specimens None Description of Procedure ERCP I attest to the content of the Intraoperative Record and any orders documented therein. Any exceptions are noted below. Medications Administered Current Inpatient Medications Acetaminophen (Acetaminophen 500 Mg Tab) 500 mg PO Q6H PRN PRN Reason: fever/pain Stop: 09/28/23 02:49 Last Admin: 08/29/23 19:22 Dose: 500 mg Atropine Sulfate (Atropine Sulfate 0.1 Mg/Ml 10ml Syr) 0.5 mg IV Q1M PRN PRN Reason: PACU Use-HR<40 &/or Bradycardi Stop: 08/30/23 19:53 Ephedrine Sulfate (Ephedrine Sulfate 50 Mg/Ml Amp) 5 mg IV Q5M PRN PRN Reason: PACU Use Only-SBP<90 mmHg Stop: 08/30/23 19:53 Fentanyl Citrate (Fentanyl Citrate Pf 100 Mcg/2 Ml Vial) 50 mcg IV Q5M PRN PRN Reason: PACU Use Only-Pain Stop: 08/30/23 19:53 Hydromorphone HCl (Hydromorphone Inj 2 Mg/Ml Syr/Vial) 0.5 mg IV Q5M PRN PRN Reason: PACU Use Only-Pain Stop: 08/30/23 19:53 Promethazine HCl 6.25 mg/ (Sodium Chloride) 50.25 mls @ 201 mls/hr IV Q6H PRN PRN Reason: Nausea And Vomiting Stop: 09/28/23 02:49 Last Infusion: 08/29/23 22:05 Dose: Infused Ciprofloxacin (Cipro / D5w) 400 mg in 200 mls @ 100 mls/hr IV Q12H EMILIO; Donna col Stop: 09/08/23 14:29 Last Infusion: 08/30/23 08:16 Dose: Infused Metronidazole (Flagyl) 500 mg in 100 mls @ 100 mls/hr IV Q8H [facility]; Protocol Stop: 09/08/23 14:29 Last Infusion: 08/30/23 09:58 Dose: Infused Lactated Ringer's (Lr) 1,000 mls @ 15 mls/hr IV .Q24H EMILIO Stop: 09/29/23 10:59 Last Infusion: 08/30/23 12:02 Dose: Infused Lorazepam (Lorazepam 0.5 Mg Tab) 0.5 mg PO TID PRN PRN Reason: Anxiety Stop: 09/28/23 02:49 Morphine Sulfate (Morphine Sulfate 4 Mg/Ml 1 Ml Carp\Vial) 4 mg IV Q4H PRN PRN Reason: Pain Stop: 09/12/23 02:49 Last Admin: 08/29/23 20:51 Dose: 4 mg Ondansetron HCl (Ondansetron Inj 2 Mg/Ml 2 Ml Vial) 4 mg IV ONCE PRN PRN Reason: PACU Use Only-Nausea/Vomiting Stop: 08/30/23 19:53 Oxycodone HCl (Oxycodone Hcl Ir 5 Mg Tab (Immediate Release)) 5 - 10 mg PO QID PRN PRN Reason: Pain Stop: 09/12/23 02:49 Last Admin: 08/30/23 08:22 Dose: 5 mg Prenat Multivit/[place]/Iron/Folic Ac ( Vitamin 1 Tab) 1 tab PO QAM EMILIO Stop: 09/28/23 08:59 Last Admin: 08/30/23 08:22 Dose: 1 tab
--- NOTE | 2023-08-30 12:37 | GI REPORT ---
Patient Name: Hortencia Cohen Procedure Date: 08/30/2023 11:43 AM Date of : 1990 Admit Type: Inpatient Age: 33 Gender: Female Attending MD: Phillip Hahn MD, Procedure: ERCP Providers: Phillip Hahn MD Referring MD: Rene Gordon MD Indications: Abnormal abdominal ultrasound, For therapy of bile duct stone(s), Elevated liver enzymes Medicines: General Anesthesia Complications: No immediate complications. Estimated Blood Loss: Estimated blood loss: none. Procedure: Pre-Anesthesia Assessment: - Prior to the procedure, a History and Physical was performed, and patient medications, allergies and sensitivities were reviewed. The patient's tolerance of previous anesthesia was reviewed. - The risks and benefits of the procedure and the sedation options and risks were discussed with the patient. All questions were answered and informed consent was obtained. - Patient identification and proposed procedure were verified prior to the procedure by the physician and the nurse. The procedure was verified in the procedure room. - Pre-procedure physical examination revealed no contraindications to sedation. After obtaining informed consent, the scope was passed under direct vision. Throughout the procedure, the patient's blood pressure, pulse, and oxygen saturations were monitored continuously. The Duodenoscope was introduced through the mouth, and advanced to the duodenum and used to inject contrast into the bile duct. The ERCP was accomplished without difficulty. The patient tolerated the procedure well. Findings: The freight car inspector film was normal. The esophagus was successfully intubated under direct vision. The scope was advanced to a normal major papilla in the descending duodenum without detailed examination of the pharynx, larynx and associated structures, and upper GI tract. The upper GI tract was grossly normal. A 0.035 inch straight standard wire was passed into the biliary tree. The short-nosed traction sphincterotome was passed over the guidewire and the bile duct was then deeply cannulated. Contrast was injected. I personally interpreted the bile duct images. Ductal flow of contrast was adequate. Image quality was adequate. Contrast extended to the main bile duct. Opacification of the entire biliary tree was successful. The maximum diameter of the ducts was 10 mm. Biliary sphincterotomy was made with a monofilament traction (standard) sphincterotome using ERBE electrocautery. There was no post-sphincterotomy bleeding. The biliary tree was swept with a 12 mm balloon starting at the bifurcation. One stone was removed. No stones remained. Sludge was swept from the duct. One 10 Fr by 7 cm plastic biliary stent with a single external flap and a single internal flap was placed into the common bile duct. Bile flowed through the stent. The stent was in good position. Indomethacin 100 mg was given via suppository to decrease the risk of post-ERCP pancreatitis (PEP). Impression: - Choledocholithiasis was found. Complete removal was accomplished by biliary sphincterotomy and balloon extraction. - One plastic biliary stent was placed into the common bile duct. Recommendation: - [facility]. - Repeat ERCP in 2 months to remove stent. Phillip Hahn MD 08/30/2023 12:37:19 PM This report has been signed electronically. Note Initiated On: 08/30/2023 11:43 AM Number of Addenda: 0 I attest to the content of the Intraoperative Record and orders documented therein, exceptions below {[id number]}
[2023-08-30] MEDS ORDERED: KETOROLAC 30 MG/ML VIAL ONE (12:59)
[2023-08-30] MEDS ORDERED: SUGAMMADEX SODIUM 200 MG/2 ML VIAL IV ONE (12:59)
--- NOTE | 2023-08-30 13:14 | Post Operative Brief Note ---
Immediate Post Op Note v1 Date of Surgery August 30, 2023 Pre & Post Diagnosis Operation Date: 08/30/23 11:05 Pre-Op Diagnosis: Choledocholithiasis Post-Op Diagnosis: Choledocholithiasis I identified the patient and participated in the time-out.: Yes Procedure Operation Date: 08/30/23 11:05 Actual Procedures p Endoscopic Retrograde Cholangiopancreatography(Not Applicable) - Phillip Hahn MD s Laparoscopic Cholecystectomy(Not Applicable) - Rene Gordon MD Surgeon Rene Gordon MD Promotion Specialist None Estimated Blood Loss 10 Findings Consistent with Post-Op Diagnosis
--- NOTE | 2023-08-30 13:19 | Operative Report ---
Post Operative Report Pre & Post Diagnosis Operation Date: 08/30/23 11:05 Pre-Op Diagnosis: Choledocholithiasis Post-Op Diagnosis: Choledocholithiasis I identified the patient and participated in the time-out.: Yes Procedure Operation Date: 08/30/23 11:05 Actual Procedures p Endoscopic Retrograde Cholangiopancreatography(Not Applicable) - MD earle Christensen Laparoscopic Cholecystectomy(Not Applicable) - Rene Gordon MD Surgeon Rene Gordon MD Licensed And Certified Midwife None Estimated Blood Loss 10 Findings Consistent with Post-Op Diagnosis Acute cholecystitis Specimens Gallbladder to pathology Drains None Anesthesia Type General Complications None Indications This is a 33-year-old female who was admitted to the emergency department with the elevated LFTs and ultrasound showing gallstones. She is was admitted placed on IV fluids and IV antibiotics. Talked in detail about her findings and suggested laparoscopic cholecystectomy followed following an ERCP. Talked about the risk of an open procedure, common bile duct injury, postop bile leak, bleeding, infection, and retained common bile duct stone. Description of Procedure The patient was taken the OR and underwent excellent general endotracheal anesthesia. After her ERCP was completed, her abdomen was prepped and draped normal sterile fashion. Transverse supraumbilical incision was made and dissection was taken down to identify the anterior fascia. Two Vicryl's were placed on either side of the midline and his midline was then incised. The peritoneal cavity was entered bluntly with Cari clamp. A 12mm Sunshine trocar was then inserted and secured. Good pneumoperitoneum was achieved to 15 mmHg pressure. Patient is placed in head up and rolled to the left. A 11mm subxiphoid and two 5mm lateral ports were placed in the normal fashion. The gallbladder was identified was acutely inflamed. This then facilitated grasping the the fundus of the gallbladder which was retracted superiorly. The neck of the gallbladder was grasped and then retracted laterally. This splayed open the hepatocystic triangle. Attention was then to taking down the peritoneal attachments to identify the cystic duct and cystic artery. Once these were skeletonized and a medial and lateral window was created between the gallbladder fossa and the duct, thereby ensuring the critical view. Three clips were then placed distally on cystic duct 1 proximally the cystic duct was transected. Two clips were then placed approximately cystic artery one distally, the cystic matthew ry was transected. An electrocautery hook was then used to move the gallbladder off the gallbladder fossa. The gallbladder was then placed in Endobag and brought out through the supraumbilical incision. The pneumoperitoneum was re- established and abdomen was irrigated out until the suction fluid was clear. There were some areas on the gallbladder fossa which were raw and were cauterized. The ports were then removed and the abdomen decompressed. The fascia of the supraumbilical incision was closed with Vicryls. 0.5% Marcaine with epinephrine local was to create a local field block. Interrupted Vicryl was used to close the skin. Steri-Strips and benzoin were used to reinforce the incisions. Sterile dressings were applied. Patient tolerated the procedure without complication and sent to the postop recovery period of observation. He will then be sent to the floor for the rest of his care. I attest to the content of the Intraoperative Record and any orders documented therein. Any exceptions are noted below.
[2023-08-30] MEDS: fentaNYL citrate PF 100 MCG/2 ML VIAL IV PRN ×4 (13:47→14:25)
--- NOTE | 2023-08-30 14:02 | Anesthesiology Progress Note ---
Date of Service August 30, 2023 Anesthesia Post Procedure Vital Signs Vital Signs: Temp Pulse Resp BP Pulse Ox O2 Del Method 08/30/23 07:22 36.6 C 64 12 102/63 100 Room Air 08/29/23 20:00 36.8 C 67 16 104/67 96 Room Air Pain Intensity Right Abdomen: Pain Intensity: 5 Head: Pain Intensity: 7 Transfer of Care Handoff Completed per policy Notes Mental Status: alert / awake / arousable and participated in evaluation Patient Amnestic to Procedure: Yes Nausea / Vomiting: adequately controlled Pain: adequately controlled Airway Patency, RR, SpO2: stable & adequate BP & HR: stable & adequate Hydration State: stable & adequate Anesthetic Complications: no major complications apparent and Pt Satisfied with anesthetic care
--- NOTE | 2023-08-30 15:51 | Fluoroscopy Report ---
[place] ERCP biliary ductal CLINICAL HISTORY: ERCP IN OR COMPARISON STUDY: None. FLUOROSCOPY TIME: 23 seconds FLUOROSCOPY IMAGES: 4 Ka,r: 1.5 mGy FINDINGS: The ampulla was cannulated and contrast was injected into the common bile duct. A balloon s weep was performed. This is followed by placement of a common bile duct stent which appears in good p osition. Contrast is seen entering the gallbladder. IMPRESSION: Fluoroscopic assistance as above ACT 112: Negative or not required by law. Electronically signed by: Jass Marcos M.D. 08/30/2023 3:49 PM
[2023-08-30] MEDS: MoRPHine SULFATE 4 MG/ML 1 ML CARP\\VIAL IV PRN ×2 (18:39→22:52)
[2023-08-30] MEDS: ACETAMINOPHEN 500 MG TAB PO PRN (20:37)
[2023-08-30] MEDS ORDERED: KETOROLAC TROMETHAMINE 15 MG/ML VIAL IV ONE (22:43)
[2023-08-30] MEDS ORDERED: SIMETHICONE 80 MG CHEW PO ONE (22:43)
[2023-08-30] MEDS: DOCUSATE SODIUM/SENNA 50/8.6MG TAB PO SCH (23:58)
[2023-08-31] MEDS: oxyCODONE HCL IR 5 MG TAB (IMMEDIATE RELEASE) PO PRN ×2 (03:20→11:43)
[2023-08-31] MEDS: CIPROFLOXACIN / D5W 400 MG/200 ML BAG IV SCH (05:43)
[2023-08-31] MEDS: MoRPHine SULFATE 4 MG/ML 1 ML CARP\\VIAL IV PRN (05:53)
[2023-08-31] MEDS ORDERED: SIMETHICONE 80 MG CHEW PO PRN (06:32)
[2023-08-31] MEDS ORDERED: POLYETHYLENE (MIRALAX) 17 GM PACK PO STA (06:41)
[2023-08-31] MEDS ORDERED: KETOROLAC TROMETHAMINE 15 MG/ML VIAL IV PRN (06:42)
[2023-08-31 07:26] LABS: Basophils # (auto) 0.02 K/uL (0.00-0.20); Basophils % (auto) 0.2 %; Eosinophils # (auto) 0.02 K/uL (0.00-0.50); Eosinophils % (auto) 0.2 %; Hematocrit (blood only) 37.5 % (37.0-47.0); Hemoglobin 11.8 g/dl (12.0-16.0); Immature Granulocytes # (auto) 0.05 K/uL (0.01-0.20); Immature Granulocytes % (auto) 0.4 %; Lymphocytes # (auto) 2.11 K/uL (1.20-3.40); Lymphocytes % (auto) 18.7 %; Mean Corpuscular Hemoglobin 25.1 pg (25.0-34.0); Mean Corpuscular Hgb Conc 31.5 g/dL (32.0-36.0); Mean Corpuscular Volume 79.6 fL (80.0-100.0); Mean Platelet Volume 10.8 fL (9.4-12.4); Monocytes # (auto) 1.21 K/uL (0.11-0.59); Monocytes % (auto) 10.7 %; Neutrophils # (auto) 7.88 K/uL (1.40-6.50); Neutrophils % (auto) 69.8 %; Platelet Count 238 K/uL (130-400); RDW Standard Deviation 46.1 fL (36.4-46.3); Red Blood Count 4.71 M/uL (4.20-5.40); White Blood Count 11.29 K/ul (4.8-10.8)
[2023-08-31] MEDS: metroNIDAZOLE 500 MG/100 ML BAG IV SCH (07:42)
--- NOTE | 2023-08-31 08:16 | Gastroenterology Progress Note ---
Date of Service August 31, 2023 Assessment & Plan (1) Cholelithiasis with choledocholithiasis: (2) Elevated LFTs: Plan 33 y/o female (recently gave 3 months ago) with h/o gallstones, admitted w/ RUQ pain, elevated LFTs and US ABD w/ choledocholithiasis with CBD dilation, cholelithiasis w/ possible cholecystitis. We were consulted for concern for choledocholithiasis. She underwent ERCP yesterday 08/30/23, with removal of choledocholithiasis via biliary sphincterotomy and balloon extraction, CBD stent placed. Then underwent laparoscopic cholecystomy. She did well overnight. LFTs coming down nicely. Abd soft, minimal tenderness. - Advance diet as tolerated - ABX per primary/surgical service - After DC would trend LFTs, CBC - ensure they return to normal - Avoid NSAIDs for 5 days - Encouraged ambulation - Will arrange repeat ERCP in 2 months to remove biliary stent Thank you for allowing us to participate in the care of this patient. Please call with any acute changes, questions or concerns. Please see addendum below with additional recommendation from my supervising physician. Admission and Anticipated Discharge Date Admission Date: August 29, 2023 Supervising Physician Co-Signing Physician Notes I performed a history and physical examination of the patient today, including specifically on physical exam - soft abdomen. I have discussed the patient's management with the advanced practitioner. Please refer to the nurse practitioner's note for the documented findings and plan of care. Subjective Patient seen and examined, chart reviewed. No acute events overnight. Having some post-op gas discomfort but is getting better. LFTs trending down nicely. Tolerating her liquid diet. Hungry for some more. Ambulating to the bathroom. Passing gas; no stool. No nausea, vomiting, fever, chills, breathing difficulty. Review of Systems Review of Systems: All systems reviewed & are unremarkable except as noted in HPI & below Physical Exam Constitutional: well developed, well nourished and comfortable; no acute distress Neck: trachea midline Respiratory: normal respiratory effort; no cough and not tachypneic Cardiovascular: Rate/Rhythm: regular rate and regular rhythm Gastrointestinal (Abdomen): + BS x 4 quads, abd soft, minimal disten tion/tenderness, no rebound, guarding. Surgical sites covered with gauze. Skin: no rashes, warm and dry Results & Data Vital Signs (Past 12 Hours) Vital Signs Temp Pulse Resp BP Pulse Ox O2 Del Method 08/31/23 07:46 36.7 C 64 16 112/67 96 Room Air 08/31/23 03:14 36.7 C 69 14 109/58 L 95 Room Air 08/30/23 23:26 36.7 C 63 14 109/66 94 Room Air Laboratory Results 08/31/23 Range/Units 06:54 WBC 11.29 H (4.8-10.8) K/ul RBC 4.71 (4.20-5.40) M/uL Hgb 11.8 L (12.0-16.0) g/dl Hct 37.5 (37.0-47.0) % MCV 79.6 L (80.0-100.0) fL MCH 25.1 (25.0-34.0) pg MCHC 31.5 L (32.0-36.0) g/dL RDW Std Deviation 46.1 (36.4-46.3) fL RDW Coeff of Ezekiel 16.0 H (11.5-14.5) % Plt Count 238 (130-400) K/uL MPV 10.8 (9.4-12.4) fL Immature Gran % (Auto) 0.4 % Neut % (Auto) 69.8 % Lymph % (Auto) 18.7 % [place] % (Auto) 10.7 % Eos % (Auto) 0.2 % Baso % (Auto) 0.2 % Neut # (Auto) 7.88 H (1.40-6.50) K/uL Lymph # (Auto) 2.11 (1.20-3.40) K/uL [place] # (Auto) 1.21 H (0.11-0.59) K/uL Eos # (Auto) 0.02 (0.00-0.50) K/uL Baso # (Auto) 0.02 (0.00-0.20) K/uL Immature Gran # (Auto) 0.05 (0.01-0.20) K/uL Sodium 137 (136-145) mmol/L Potassium 4.1 (3.5-5.1) mmol/L Chloride 104 (98-107) mmol/L Carbon Dioxide 26 (21-32) mmol/L Anion Gap 7 (3-11) BUN 10 (6-23) mg/dl Creatinine 0.78 (0.6-1.2) mg/dl Est Cr Clr Drug Dosing 119.5 ml/min Est GFR ( Amer) 115.8 ml/min Est GFR (Non-Af Amer) 99.9 ml/min BUN/Creatinine Ratio 12.8 (10-20) Glucose 96 (70-99(Fasting)) mg/dl Calcium 8.9 (8.6-10.3) mg/dl Total Bilirubin 0.7 D (0.2-1.0) mg/dl AST 70 H (13-39) U/L ALT 252 H (7-52) U/L Alkaline Phosphatase 182 H (34-104) U/L Total Protein 6.8 (6.0-8.3) gm/dl Albumin 3.9 (3.4-5.0) gm/dl Globulin 2.9 (2.5-4.0) gm/dl Albumin/Globulin Ratio 1.3 (0.9-2) Diagnostic Findings GI Procedures: ERCP 08/30/23: - Choledocholithiasis was found. Complete removal was accomplished by biliary sphincterotomy and ballooon extraction - One plastic biliary stent was placed into the common bile duct
[2023-08-31 08:23] LABS: Bilirubin,Total 0.7 mg/dl (0.2-1.0)
[2023-08-31 08:24] LABS: Albumin Globulin Ratio 1.3 (0.9-2); Albumin Level 3.9 gm/dl (3.4-5.0); BUN Creatinine Ratio 12.8 (10-20); Calcium 8.9 mg/dl (8.6-10.3); Creatinine Clr Calc Pharmacy 119.5 ml/min; Est GFR (African American) 115.8 ml/min; Est GFR (Non-African American) 99.9 ml/min; Globulin 2.9 gm/dl (2.5-4.0); Potassium 4.1 mmol/L (3.5-5.1); Total Protein 6.8 gm/dl (6.0-8.3)
[2023-08-31] MEDS: DOCUSATE SODIUM/SENNA 50/8.6MG TAB PO SCH (10:02)
[2023-08-31] MEDS: PRENATAL VITAMIN 1 TAB PO SCH (10:02)
--- NOTE | 2023-08-31 10:31 | Surgery Progress Note ---
Date of Service August 31, 2023 Assessment & Plan (1) Elevated LFTs: (2) Cholelithiasis with choledocholithiasis: Plan POD #1 s/p ERCP with biliary sphincterotomy and CBD stent placement for choledocholithiasis and laparoscopic cholecystectomy avss postop pain at incisions and controlled no n,v Plan: okay from surgical standpoint for discharge this afternoon advance to low fat diet incentive ambulate hallway discharge instructions reviewed, f/u surgery office in 2 weeks rx for Percocet sent to pharmacy, advised to pump and dump while taking narcotics avoid NSAIDs given ERCP/sphincterotomy Discussed with dr. das who agrees with above. Admission and Anticipated Discharge Date Admission Date: August 29, 2023 Subjective feeling better, incisional soreness and gas pains no chest pain or shortness of breath no n,v tolerating clears urinating without difficulty Physical Exam Constitutional: WD/WN, vitals as above no acute distress and not ill appearing Respiratory: normal respiratory effort; no respiratory distress Gastrointestinal (Abdomen): Inspection/Auscultation: abdomen normal to inspection, + abdomen distended (mild) and + abdominal surgical incision (covered with dressings, spotting present on umbilical dressing) Percussion/Palpation: + abdomen tender (at incision sites appropriate postop) and abdomen soft; no guarding, abdomen not rigid and abdomen not firm Skin: no rashes, warm and dry no jaundice Psychiatric: A+Ox3, euthymic affect Results & Data Vital Signs (Past 12 Hours) Vital Signs Temp Pulse Resp BP Pulse Ox O2 Del Method 08/31/23 07:46 36.7 C 64 16 112/67 96 Room Air 08/31/23 03:14 36.7 C 69 14 109/58 L 95 Room Air 08/30/23 23:26 36.7 C 63 14 109/66 94 Room Air Laboratory Results 08/31/23 Range/Units 06:54 WBC 11.29 H (4.8-10.8) K/ul RBC 4.71 (4.20-5.40) M/uL Hgb 11.8 L (12.0-16.0) g/dl Hct 37.5 (37.0-47.0) % MCV 79.6 L (80.0-100.0) fL MCH 25.1 (25.0-34.0) pg MCHC 31.5 L (32.0-36.0) g/dL RDW Std Deviation 46.1 (36.4-46.3) fL RDW Coeff of Ezekiel 16.0 H (11.5-14.5) % Plt Count 238 (130-400) K/uL MPV 10.8 (9.4-12.4) fL Immature Gran % (Auto) 0.4 % Neut % (Auto) 69.8 % Lymph % (Auto) 18.7 % [place] % (Auto) 10.7 % Eos % (Auto) 0.2 % Baso % (Auto) 0.2 % Neut # (Auto) 7.88 H (1.40-6.50) K/uL Lymph # (Auto) 2.11 (1.20-3.40) K/uL [place] # (Auto) 1.21 H (0.11-0.59) K/uL Eos # (Auto) 0.02 (0.00-0.50) K/uL Baso # (Auto) 0.02 (0.00-0.20) K/uL Immature Gran # (Auto) 0.05 (0.01-0.20) K/uL Sodium 137 (136-145) mmol/L Potassium 4.1 (3.5-5.1) mmol/L Chloride 104 (98-107) mmol/L Carbon Dioxide 26 (21-32) mmol/L Anion Gap 7 (3-11) BUN 10 (6-23) mg/dl Creatinine 0.78 (0.6-1.2) mg/dl Est Cr Clr Drug Dosing 119.5 ml/min Est GFR ( Amer) 115.8 ml/min Est GFR (Non-Af Amer) 99.9 ml/min BUN/Creatinine Ratio 12.8 (10-20) Glucose 96 (70-99(Fasting)) mg/dl Calcium 8.9 (8.6-10.3) mg/dl Total Bilirubin 0.7 D (0.2-1.0) mg/dl AST 70 H (13-39) U/L ALT 252 H (7-52) U/L Alkaline Phosphatase 182 H (34-104) U/L Total Protein 6.8 (6.0-8.3) gm/dl Albumin 3.9 (3.4-5.0) gm/dl Globulin 2.9 (2.5-4.0) gm/dl Albumin/Globulin Ratio 1.3 (0.9-2)
--- NOTE | 2023-08-31 11:49 | Discharge Summary ---
Discharge Summary Date of Service August 31, 2023 Notes For Next Care Provider Patient hospitalized for acute cholecystitis and choledocholithiasis. She underwent ERCP with biliary stent placement along with laparoscopic cholecystectomy. She had a transaminitis which is downtrending on day of discharge. She is being discharged on additional 5-day course of ciprofloxacin and Flagyl. She will need repeat CBC and CMP at follow-up to ensure downtrending LFTs and improved leukocytosis. Medication Changes From Visit Ciprofloxacin 500 mg every 12 hours for additional 5 days. Next dose will be due evening of 08/31/2023, around 9 PM Metronidazole 500 mg every 8 hours for additional 5 days. Next dose will be due evening of 08/31/2023, around 9 PM Recommend daily probiotic for GI health for additional 2 weeks. Percocet 5-325 mg every 4 hours as needed for moderate to severe pain. There is Tylenol in this medication. Admission HPI Per Admitting Provider History obtained from patient and records. Medical history significant for preeclampsia, gallstones. Last confinement May 2023 under OB service for hemorrhage status post evacuation. Patient woke up with achy right upper quadrant pain yesterday morning. Pain radiating to the shoulder and chest. Similar to gallstone attack in the past as per patient but not as bad. No fever, no chills, no shortness of breath. Some nausea without emesis. Patient consulted ER. IV Zosyn administered at the ER. 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 Admission Exam Per Admitting Provider GENERAL: Comfortable, slightly anxious, no respiratory distress SKIN: Normal color, warm HEENT: [place] palpebral conjunctivae, no ptosis, dry buccal mucosa NECK : Supple, no tenderness CHEST : CTA, no tenderness HEART : RRR, no obvious murmurs ABDOMEN: Some distention, right upper quadrant tenderness EXTREMITIES : No LE swelling/tenderness, no other conspicuous deformities noted NEUROLOGIC : Coherent, no facial asymmetry, no other gross focality Principal Dx & Hospital Course #1 = Principal Diagnosis (1) Cholelithiasis with choledocholithiasis: This is an otherwise healthy 33-year-old female who is currently a cur rently breast-feeding an infant. She initially presented to hospital on 08/29/2023 secondary to abdominal pain. Imaging revealed concerns for choledocholithiasis. She also had a relative transaminitis and leukocytosis. She was started on broad-spectrum IV antibiotics with Cipro and Flagyl. She underwent ERCP with complete removal of choledocholithiasis accomplished by biliary sphincterotomy and balloon extraction. 1 plastic stent was placed in the CBD. She then underwent acute laparoscopic cholecystectomy by Dr. Gordon and diagnosed with acute cholecystitis. On postop day 1 she continued to have mild incisional discomfort and discomfort with movement. She also has been experiencing pain in setting of insufflation. On POD #1 she is tolerating diet and ready for discharge. She will need repeat ERCP in 2 months for biliary stent removal. She is able to advance diet as tolerated. She will need surgical follow-up as outpatient. She will complete additional 5-day course of oral ciprofloxacin and Flagyl. She is encouraged to continue to hold on breast- feeding until completion of antibiotic course. On day of discharge her ALT was 252, AST 70 and total bilirubin has completely normalized. She still has a mild leukocytosis at 11.29k. She is passing flatus but has not yet had a bowel movement. Discharge Exam Gen: WD/WN, F, NAD, A&O x3 HEENT: Normocephalic, atraumatic, conjunctivae moist, sclerae anicteric, mucous membranes moist. Lung: Clear to Auscultation bilaterally, no wheezes/rales/rhonchi Heart: Regular rate, regular rhythm, no murmurs, rubs, or gallops Abdomen: Soft, mild distended, incision x [address], 1 with serosang drainage, TTP Extremities: No edema Skin: Warm, no rash, negative turgor. Updated Medication List Medication Instructions Recorded Confirmed Type prenat.vits,iker,pcm-nypq-mhlgy 1 tab PO QAM 11/29/21 08/29/23 History Saccharomyces boulardii 250 mg 250 mg PO DAILY #14 caps 08/31/23 Rx capsule (Florastor) ciprofloxacin HCl 500 mg tablet 500 mg PO Q12H #11 tabs 08/31/23 Rx metronidazole 500 mg tablet 500 mg PO Q8H #16 tabs 08/31/23 Rx oxycodone-acetaminophen 5 mg-325 1 tab PO Q6H PRN pain #12 tabs 08/31/23 Rx mg tablet Hospital Stay Data Consultations 11/06/23 02:22 ED Decision to Admit Stat 08/29/23 05:19 Consult Gastroenterology Routine Consult General Surgery Routine Procedures Performed Operation Date: 08/30/23 11:05 Actual Procedures p Endoscopic Retrograde Cholangiopancreatography(Not Applicable) - Phillip Hahn MD s Laparoscopic Cholecystectomy(Not Applicable) - Rene Gordon MD Diagnostic Imagining Performed 08/29/23 00:27 US gallbladder Stat 08/30/23 11:05 FL ERCP biliary ductal Routine Pending Results Patient Have Any Pending Studies at Discharge: Yes (gallbladder pathology, will be reviewed at postop visit) Discharge Instructions Given to Patient (Per Discharging Provider) MEDICATION CHANGES: Ciprofloxacin 500 mg every 12 hours for additional 5 days. Next dose will be due evening of 08/31/2023, around 9 PM Metronidazole 500 mg every 8 hours for additional 5 days. Next dose will be due evening of 08/31/2023, around 9 PM Recommend daily probiotic for GI health for additional 2 weeks. Percocet 5-325 mg every 4 hours as needed for moderate to severe pain. There is Tylenol in this medication. SUMMARY OF TEST RESULTS: You were admitted to hospital secondary to infection and inflammation of your gallbladder as well as an obstructing gallstone in your bile duct. You underwent a procedure called a, ERCP, to remove the stone as well as a stent was placed. This was done by the GI team. A general surgeon then went in and remove your gallbladder. You did have a mild elevation in your white blood cell count as well as your liver functions were elevated due to above. You are being treated with additional course of antibiotics. PENDING TEST RESULTS: Gallbladder surgical pathology -please discuss with your general surgeon at follow-up appointment. RECOMMENDATIONS FOR FOLLOW-UP: Recommend sticking to a low-fat diet until abdominal pain completely resolved. You may then gradually increase to regular diet. Recommend staying well-hydrated. Do not use anti-inflammatories for the next 5 days. This includes Aleve, Motrin, Advil or ibuprofen. Please only utilize Percocet for as needed pain. Complete antibiotics in their entirety. While on antibiotic therapy recommend to not breast-feed. If taking oxycodone please do not breast-feed. No driving for the next 1 week until pain resolves and you are no longer under the influence of oxycodone. Please follow-up with your primary care provider. At this appointment it is recommended that you have your liver functions and your white blood cell count reevaluated. You will need to follow-up with the gastroenterology team. You will need to have another ERCP to have your biliary stent removed in approximately 2 months. OTHER INSTRUCTIONS: Seek medical attention if you have: * temperature above 101 * chest pain or trouble breathing * abdominal pain, nausea, vomiting * diarrhea, dark stools or bloody stools * any unanswered questions or concerns Call 911 if symptoms are severe. Please take good care of yourself. It has been a pleasure taking care of you. Please take care of yourself. If you have any questions regarding your recent hospitalization please contact [facility] and request [facility] Priestist @ [phone]. Total Time Total Time Spent Total Time Spent (In Minutes): 50 minutes
[2023-08-31] MEDS: LACTATED RINGER'S 1,000 ML IV SCH (11:56)
[2023-08-31] MEDS ORDERED: metroNIDAZOLE 500 MG TAB PO ONE (12:00)
--- OUTSIDE RECORDS SUMMARY | 2023-09-02 14:33 | External Medical Summary | Summary of Care ---
Author Name Unknown Organization [facility] Address [address] [place] [address] Phone [phone] Care Team Providers Care Security Operations Specialist Name Role Phone Li Sullivan DO Primary Care Provider Encounter Details Date Type Department Care Team Description 08/04/2023 Documentation Pediatrics [facility] [address] [place] [address] Ijeoma Miller MD [address] [place] [address] Allergies Active Allergy Reactions Severity Noted Date Comments Cephalosporins 11/22/2000 Does not remember documented as of this encounter (statuses as of 08/04/2023) Medications Medication Sig Dispensed Refills Start Date End Date Status 19 29-1 MG Oral Tablet Chewable Take by mouth. 0 Active Ketoconazole 2 % External Shampoo (Nizoral)Indications:Se borrheic dermatitis Apply to scalp 2-3 x's per week. 120 mL 11 02/07/2023 Active documented as of this encounter (statuses as of 08/04/2023) Active Problems Problem Noted Date Acne vulgaris 07/30/2015 documented as of this encounter (statuses as of 08/04/2023) Immunizations Name Administration Dates Next Due HPV Vaccine, 4-Valent 06/27/2015,05/31/2014,06/0 06/2014 Meningococcal Conjugate Vacc ine (Menactra/Menveo) 05/03/2008 TD, Preservative Free 07/01/2020 TDAP (age 11 and older)(Adacel) 04/04/2006 documented as of this encounter Social History Tobacco Use Types Packs/Day Years Used Date Smoking Tobacco: Never Smokeless Tobacco: Never Alcohol Use Standard Drinks/Week Comments Yes 0 (1 standard drink = 0.6 oz pur e alcohol) [id number] Food Insecurity Answer Date Recorded Within the past 12 months, y ou worried that your food would run out before you got money to buy more. Never true 07/01/2020 Within the past 12 months, t he food you bought just didn't last and you didn't have money to get more. Never true 07/01/2020 Sex Assigned at Date Recorded Not on file Job Start Date Occupation Industry Not on file Not on file Not on file documented as of this encounter Progress Notes * Ijeoma Miller MD - 08/04/2023 11:15 AM EDT Here for baby's WCC. [place] Depression Scale: [place] Depression Scale Total: 5 [place] suicide question and score: Score of 3 = Yes, quite often. Score of 2 = Sometimes. Score of 1 = Hardly ever The thought of harming myself has occurred to me.: 0 documented in this encounter Plan of Treatment Upcoming Encounters Date Type Specialty Care Team Description 08/11/2023 Office Visit Dermatology Halima Austin PA-C [address] [facility] [address] [place] [address] Health Maintenance Due Date Last Done Comments COVID-19 Vaccine (#1) 1990 Hepatitis C Screening 2008 Pap Smear 10/22/2019 10/22/2016, 06/06/2014, 10/27/2012, Additional history exists Cervical Cancer Screening 2020 HPV/Co-Test 2020 Depression Screening 07/01/2021 07/01/2020, 10/22/2016 (Discussed) Influenza Vaccine (FLU shot) (#1) 2023 DTaP,Tdap,and Td Vaccines (8 - Td or Tdap) 07/01/2030 07/01/2020, 04/04/2006, 08/17/1994, Additional history exists Hepatitis B Completed 04/20/2001, 05/24, 05/06/1999 MENINGOCOCCAL (MENACTRA/MENVEO) Completed 05/03/2008 GARDASIL-HPV IMMUNIZATION SERIES Completed 06/27/2015, 05/31/2014, 04/01/2014 Pneumococcal Vaccine: Pediatrics (0 to 5 Years) and At-Risk Patients (6 to 64 Years) Aged Out No longer eligible based on patient's age to complete this topic documented as of this encounter Medical Devices Not on filedocumented as of this encounter Care Teams Security Operations Specialist Relationship Specialty Start Date End Date Li Sullivan, [address] [place] [address] PCP - General Family Medicine 10/10/12 documented as of this encounter
--- OUTSIDE RECORDS SUMMARY | 2023-09-02 14:33 | External Medical Summary | Summary of Care ---
Author Name Unknown Organization [facility] Address [address] [place] [facility] [place] [address] Phone [phone] Care Team Providers Care Paper Stacker Name Role Phone Li Sullivan DO Primary Care Provider Encounter Details Date Type Department Care Team Description 06/09/2023 Documentation Pediatrics [facility] [address] [place] [address] Ijeoma Miller MD [address] [place] [address] Allergies Active Allergy Reactions Severity Noted Date Comments Cephalosporins 11/22/2000 Does not remember documented as of this encounter (statuses as of 06/09/2023) Medications Medication Sig Dispensed Refills Start Date End Date Status 19 29-1 MG Oral Tablet Chewable Take by mouth. 0 Active Ketoconazole 2 % External Shampoo (Nizoral)Indications:Se borrheic dermatitis Apply to scalp 2-3 x's per week. 120 mL 11 02/07/2023 Active documented as of this encounter (statuses as of 06/09/2023) Active Problems Problem Noted Date Acne vulgaris 07/30/2015 documented as of this encounter (statuses as of 06/09/2023) Immunizations Name Administration Dates Next Due HPV Vaccine, 4-Valent 06/27/2015,05/31/2014,06/0 06/2014 Meningococcal Conjugate Vacc ine (Menactra/Menveo) 05/03/2008 TD, Preservative Free 07/01/2020 TDAP (age 11 and older)(Adacel) 04/04/2006 documented as of this encounter Social History Tobacco Use Types Packs/Day Years Used Date Smoking Tobacco: Never Smokeless Tobacco: Never Alcohol Use Standard Drinks/Week Comments Yes 0 (1 standard drink = 0.6 oz pur e alcohol) [id number] Food Insecurity Answer Date Recorded Within the [...] Progress Notes * Ijeoma Miller MD - 06/09/2023 12:33 PM EDT Here for baby's 2 week WCC. [place] Depression Scale: [place] Depression Scale Total: 3 [place] suicide question and score: Score of 3 = Yes, quite often. Score of 2 = Sometimes. Score of 1 = Hardly ever The thought of harming myself has occurred to me.: 0 documented in this encounter Plan of Treatment Upcoming Encounters Date Type Specialty Care Team Description 08/11/2023 Office Visit Dermatology Halima Austin PA-C [address] [place] [address] Health Maintenance Due Date Last Done Comments COVID-19 Vaccine (#1) 1990 Hepatitis C Screening 2008 Pap Smear 10/22/2019 10/22/2016, 06/06/2014, 10/27/2012, Additional history exists Cervical Cancer Screening 2020 HPV/Co-Test 2020 Depression Screening, Annual for Pts 12 and Over 07/01/2021 07/01/2020, 10/22/2016 (Discussed) Influenza Vaccine (FLU [...] filedocumented as of this encounter Care Teams Paper Stacker Relationship Specialty Start Date End Date Li Sullivan DO [address] [place] [address] PCP - General Family Medicine 10/10/12 documented as of this encounter
== END 2023-08-31 13:39 | disposition home or self-care (01) ==
LOC: ED 00:16 → SUATTDRO 02:48 → EDINP 02:48 → INTOOBSV 02:48 → 3W 05:19